=== PATIENT | female | born 2000 | race Caucasian/White ===

== ENCOUNTER 2023-07-07 22:21 | Emergency (ER) | payer OTHER, MEDICAID, SELFPAY ==
[2023-07-07 22:35] VITALS: BP 114/78; PULSE 109; RESP 20; TEMP 36.8; O2SAT 100; BMI 35.9
[2023-07-07 23:18] LABS: Coronavirus 19, PCR Not Detected (NotDetected); Influenza A, PCR Not Detected (NotDetected); Influenza B, PCR Not Detected (NotDetected)
[2023-07-07 23:33] LABS: Strep Scrn Group A (Rapid) Negative (Negative)
[2023-07-08 00:11] VITALS: BP 128/82; PULSE 72; RESP 18; TEMP 36.7; O2SAT 99
--- NOTE | 2023-07-08 19:42 | HMH.EDGENADL ---
Discharge Plan Disposition Patient Disposition: Home, Self-Care Condition: Good Prescriptions Prescriptions: New lidocaine HCl [Lidocaine Viscous] 2 % solution 1 applic mucous membrane DAILY PRN (Reason: pain) Qty: 100 0RF No Action cyclobenzaprine [Flexeril] 10 mg Tablet 10 mg PO HS PRN (Reason: Back Pain) pantoprazole [Protonix] 20 mg Tablet,Delayed Release (Dr/Ec) 20 mg PO DAILY trazodone 100 mg Tablet 100 mg PO BID aripiprazole [Abilify] 5 mg Tablet 5 mg PO DAILY tramadol 100 mg Tablet 100 mg PO BID PRN (Reason: Pain) Referrals Follow up/Referrals: Ayah Springer APRN [Primary Care Provider] - See instructions Activity Restrictions/Add. Instructions Additional Instructions/Restrictions: Please return to the emergency department if you experience any new or worsening symptoms. Clinical Impressions Clinical Impression: Acute viral pharyngitis Instructions Patient Instructions: DI for Viral Pharyngitis Discharge ED Provider: Ramirez Stewart Adult HPI General Chief complaint: PAIN Stated complaint: Sore throat, Time Seen by Provider: 07/07/23 22:24 Mode of Arrival: Ambulatory Source of Information: Patient Limitations: No Limitations Description of Symptoms (Recalled from ER Triage Doc. by RN): 32 year old female with compliants of sore throat and feeling like her tongue is swollen. Complaints started three days ago with no improvement. History of Present Illness HPI narrative: Patient presents for evaluation of sore throat, gradual in onset, starting 3 days ago, constant, stable in course, with no reported unilateral swelling or globus sensation or p.o. intolerance, no known sick contacts, has not had similar symptoms before, no pain elsewhere, no dental pain, no shortness of breath, no hoarseness Related Data Home Medications Medication Instructions Recorded Confirmed aripiprazole 5 mg tablet (Abilify) 5 mg PO DAILY Depression 07/07/23 07/07/23 cyclobenzaprine 10 mg tablet 10 mg PO HS PRN Back Pain 07/07/23 07/07/23 pantoprazole 20 mg tablet,delayed 20 mg PO DAILY Acid Reflux 07/07/23 07/07/23 release (Protonix) tramadol 100 mg tablet 100 mg PO BID PRN Pain 07/07/23 07/07/23 trazodone 100 mg tablet 100 mg PO BID Insomnia 07/07/23 07/07/23 Previous Rx's Medication Instructions Recorded lidocaine HCl 2 % mucosal solution 1 applic mucous membrane DAILY PRN 07/08/23 (Lidocaine Viscous) pain #100 mL Allergies Allergy/AdvReac Type Severity Reaction Status Date / Time glimepiride Allergy Mild Verified 07/07/23 22:52 [facility] Disclaimer: The information contained in this section may have been updated after the patient was seen, as this information can be updated by other users. Medical History (Updated 07/08/23 @ 00:06 by Ramirez Stewart MD) Anxiety DDD (degenerative disc disease) Insomnia Major depression Post traumatic stress disorder Scoliosis Surgical History (Updated 07/07/23 @ 22:45 by Lizett Perry RN) History of appendectomy History of section History of eye surgery Family History (Updated 07/07/23 @ 22:45 by Lizett Perry RN) Other No significant family history Social History (Updated 07/07/23 @ 22:47 by Lizett Perry RN) Smoking Status: Current every day smoker alcohol intake: never current occupational status: employed Travel in the last 8 weeks: None ROS Obtained: Yes Systems reviewed as appropriate & no additional complaints except as documented Physical Exam General General appearance: alert and in no apparent distress Head Head exam: atraumatic and normocephalic Eye Eye exam: Present normal appearance ENT ENT exam: Present other (Oropharyngeal erythema with no unilateral tonsillar swelling, no trismus, no stridor, no hoarseness) Neck Neck exam: Present normal inspection Chest Chest inspection: Present normal inspection and symmetric chest wall rise Respiratory Respir
== END 2023-07-08 00:13 | disposition home or self-care (01) ==
PROVIDERS: Emergency Provider Emergency Medicine; PCP Nurse Practitioner
DX: J02.9 Acute pharyngitis, unspecified (principal); F41.9 Anxiety disorder, unspecified; F32.9 Major depressive disorder, single episode, unspecified; F17.200 Nicotine dependence, unspecified, uncomplicated; F43.10 Post-traumatic stress disorder, unspecified
CPT/HCPCS: 87430; 87636; 99283

== ENCOUNTER 2023-09-18 12:31 | Emergency (ER) | payer OTHER, MEDICAID, SELFPAY ==
[2023-09-18 12:50] VITALS: BP 128/68; PULSE 76; RESP 18; TEMP 36.9; O2SAT 99; BMI 38.1
--- NOTE | 2023-09-18 13:02 | EXP.UTC ---
Discharge Plan Disposition Patient Disposition: Still a Patient Condition: Good Prescriptions Prescriptions: No Action cyclobenzaprine [Flexeril] 10 mg Tablet 10 mg PO HS PRN (Reason: Back Pain) trazodone 100 mg Tablet 100 mg PO BID aripiprazole [Abilify] 5 mg Tablet 5 mg PO DAILY lidocaine HCl [Lidocaine Viscous] 2 % solution 1 applic mucous membrane DAILY PRN (Reason: pain) Qty: 100 0RF hydroxyzine pamoate 50 mg capsule 50 mg PO TID Referrals Follow up/Referrals: Provider,Referral, MD [Primary Care Provider] - See instructions Activity Restrictions/Add. Instructions Additional Instructions/Restrictions: Please follow-up with your primary care doctor if your symptoms continue. Return to the emergency part with any significant worsening of your pain. No emergent medical condition identified today Clinical Impressions Clinical Impression: Abdominal pain, acute, right upper quadrant Instructions Patient Instructions: DI for Acute Abdominal Pain Discharge ED Provider: Tanesha Clay [facility] [place] HPI General Chief complaint: Abdominal Pain Stated complaint: back pain and stomach pain Mode of Arrival: Ambulatory Source of Information: Patient Limitations: No Limitations Time Seen by Provider: 09/18/23 13:02 Description of Symptoms (Recalled from Triage Doc. by RN): Pt stated that URQ pain that radiates to her right side. She describes the pain as a shooting pain . She rates her pain 7/10. She states that it has been going on for 2-3 days and has just gotten worse. HEENT Symptoms (Recalled from RN notes): Yes Resp Symptoms (Recalled from RN notes): No Skin Symptoms (Recalled from RN notes): No MS Symptoms (Recalled from RN notes): No Functional Status (Recalled from RN notes): n/a History of Present Illness Provider Complaint: Patient states that she has been having pain in her right upper quad that is shooting into her back and feels like it goes up her spine at times States that pain started about 2-3 days ago and has continued to get worse States that this morning she woke up and it was killing her rates pain 7-10 States that she has had her appendix removed but still has her gallbladder and her pain in her upper abdomen continues to get worse Related Data Home Medications Medication Instructions Recorded Confirmed aripiprazole 5 mg tablet (Abilify) 5 mg PO DAILY Depression 07/07/23 09/18/23 cyclobenzaprine 10 mg tablet 10 mg PO HS PRN Back Pain 07/07/23 09/18/23 trazodone 100 mg tablet 100 mg PO BID Insomnia 07/07/23 09/18/23 hydroxyzine pamoate 50 mg capsule 50 mg PO TID 09/18/23 09/18/23 Previous Rx's Medication Instructions Recorded lidocaine HCl 2 % mucosal solution 1 applic mucous membrane DAILY PRN 07/08/23 (Lidocaine Viscous) pain #100 mL Allergies Allergy/AdvReac Type Severity Reaction Status Date / Time glimepiride Allergy Mild Verified 09/18/23 13:02 pantoprazole [From Protonix] Allergy Verified 09/18/23 13:02 Worker's Comp Is this a Worker's Comp case?: No [facility] Disclaimer: The information contained in this section may have been updated after the patient was seen, as this information can be updated by other users. Medical History Anxiety DDD (degenerative disc disease) Insomnia Major depression Post traumatic stress disorder Scoliosis Surgical History History of appendectomy History of section History of eye surgery Family History Other No significant family history Social History Smoking Status: Never smoker alcohol intake: never current occupational status: employed Travel in the last 8 weeks: None ROS Obtained: Yes All systems reviewed & no additional complaints except as documented and Yes System
[2023-09-18 13:05] LABS: Apearance,Urine Cloudy (Clear); Bilirubin,Urine Negative (Negative); Blood, Urine Trace (Negative); Color,Urine Dark Yellow (Yellow); Glucose,Urine (UA) Negative (Negative); Ketones,Urine Negative (Negative); Protein,Urine Negative (Negative); UTC Leukocyte Esterase,Urine Negative (Negative); UTC Nitrate,Urine Negative (Negative); UTC Pregnancy Test, Urine Negative (Negative); Urobilinogen,Urine 0.2 EU/dl (0.2)
--- NOTE | 2023-09-18 13:16 | US_ITS ---
FINAL REPORT CLINICAL HISTORY: pain FINDINGS: RIGHT UPPER QUADRANT ULTRASOUND Sonographic images of the right upper quadrant were obtained. The pancreas is partially obscured.The liver has an unremarkable appearance.The gallbladder appears normal without evidence of gallstones.The common duct measures 3 mm. Limited images of the right kidney are normal. IMPRESSION: No acute process. Reviewed, Interpreted and Dictated by Lonny Mullen III, MD Transcribed by Margarita Dick Authenticated and [facility]
--- NOTE | 2023-09-18 13:20 | PC.NURSE ---
pt arrived to room from [facility]
[2023-09-18 13:23] VITALS: BP 123/90; PULSE 85; RESP 20; TEMP 36.8; O2SAT 99; BMI 37.8
--- NOTE | 2023-09-18 13:33 | HMH.EDGENADL ---
Discharge Plan Disposition Patient Disposition: Still a Patient Condition: Good Prescriptions Prescriptions: No Action cyclobenzaprine [Flexeril] 10 mg Tablet 10 mg PO HS PRN (Reason: Back Pain) trazodone 100 mg Tablet 100 mg PO BID aripiprazole [Abilify] 5 mg Tablet 5 mg PO DAILY lidocaine HCl [Lidocaine Viscous] 2 % solution 1 applic mucous membrane DAILY PRN (Reason: pain) Qty: 100 0RF hydroxyzine pamoate 50 mg capsule 50 mg PO TID Referrals Follow up/Referrals: Provider,Referral, MD [Primary Care Provider] - See instructions Activity Restrictions/Add. Instructions Additional Instructions/Restrictions: Please follow-up with your primary care doctor if your symptoms continue. Return to the emergency part with any significant worsening of your pain. No emergent medical condition identified today Clinical Impressions Clinical Impression: Abdominal pain, acute, right upper quadrant Instructions Patient Instructions: DI for Acute Abdominal Pain Discharge ED Provider: Tanesha Clay General Adult HPI <Tanesha Clay DO - Last Filed: 09/18/23 15:54> General Chief complaint: Abdominal Pain Stated complaint: back pain and stomach pain Time Seen by Provider: 09/18/23 13:02 Mode of Arrival: Ambulatory Source of Information: Patient Limitations: No Limitations Description of Symptoms (Recalled from ER Triage Doc. by RN): pt to ed from [facility] c/o right UQ pain. pt denies n/v. pt reports her symptoms have been persistent x2 days. History of Present Illness HPI narrative: This patient is a 22-year-old female with a history of chronic back pain and appendectomy presenting to the emergency department with concern for right upper quadrant abdominal pain x 2 days. She states that it radiates to her back. She also complains of nausea, but no vomiting. She denies any fevers, chills, changes in bowel movements, dysuria, polyuria, or other concerns. She is evaluated in [facility], who called over here to transfer the patient over here. They note that the patient has an exam that is concerning for cholecystitis. Patient does still have her gallbladder. No other concerns noted at this time. Related Data Home Medications Medication Instructions Recorded Confirmed aripiprazole 5 mg tablet (Abilify) 5 mg PO DAILY Depression 07/07/23 09/18/23 cyclobenzaprine 10 mg tablet 10 mg PO HS PRN Back Pain 07/07/23 09/18/23 trazodone 100 mg tablet 100 mg PO BID Insomnia 07/07/23 09/18/23 hydroxyzine pamoate 50 mg capsule 50 mg PO TID 09/18/23 09/18/23 Previous Rx's Medication Instructions Recorded lidocaine HCl 2 % mucosal solution 1 applic mucous membrane DAILY PRN 07/08/23 (Lidocaine Viscous) pain #100 mL Allergies Allergy/AdvReac Type Severity Reaction Status Date / Time glimepiride Allergy Mild Verified 09/18/23 13:02 pantoprazole [From Protonix] Allergy Verified 09/18/23 13:02 PFSH <Tanesha Clay DO - Last Filed: 09/18/23 15:54> [facility] Disclaimer: The information contained in this section may have been updated after the patient was seen, as this information can be updated by other users. Medical History Anxiety DDD (degenerative disc disease) Insomnia Major depression Post traumatic stress disorder Scoliosis Surgical History History of appendectomy History of section History of eye surgery Family History Other No significant family history Social History Smoking Status: Never smoker alcohol intake: never current occupational status: employed Travel in the last 8 weeks: None <Tanesha Clay DO - Last Filed: 09/18/23 15:54> ROS Obtained: Yes All systems reviewed & no additional complaints except as documented Physical Exam <Tanesha Clay DO
--- NOTE | 2023-09-18 13:44 | PC.NURSE ---
pt received a warm blanket call light at bs
--- NOTE | 2023-09-18 14:07 | PC.NURSE ---
PT gone to RAD via wheelchair for u/s
[2023-09-18 14:12] LABS: Basophils % 0.4 % (0.1-2.0); Eosinophils # 0.1 K/mm3 (0.0-0.4); Eosinophils % 0.6 % (0.1-12.0); Hematocrit 41.8 % (37.0-47.0); Hemoglobin 14.1 g/dL (12.2-16.2); Lymphocytes # 3.2 K/mm3 (0.7-4.5); Lymphocytes % 36.4 % (10-50); Mean Corpuscular HGB Conc 33.7 g/dL (31.8-35.4); Mean Corpuscular Hemoglobin 29.3 pg (27.0-31.2); Mean Platelet Volume 8.2 fl (7.4-10.4); Monocytes # 0.6 K/mm3 (0.1-1.0); Monocytes % 6.9 % (1.7-9.3); Neutrophils # 4.9 K/mm3 (1.8-7.8); Neutrophils % 55.6 % (37.0-80.0); Platelet Count 253 K/mm3 (142-424); Red Cell Distribution Width 13.4 % (11.5-17.5); White Blood Count 8.8 K/mm3 (4.8-10.8)
[2023-09-18 14:14] LABS: Chloride 106 mmol/L (98-107); Sodium 137 mmol/L (136-145)
[2023-09-18 14:16] LABS: Alanine Aminotransferase 21 U/L (12-78); Alkaline Phosphatase 61 U/L (38-126); Aspartate Amino Transferase 26 U/L (14-36); Bilirubin,Total 0.5 mg/dl (0.2-1.3); Blood Urea Nitrogen 4 mg/dl (7-17); Creatinine Clearance Estimated 177 mL/min (50-200); Estimated Glomerular Filt Rate 103 ml/min (>60); GFR (African American) 124 ML/MIN (>60)
[2023-09-18 14:17] LABS: Albumin Level 3.9 g/dl (3.5-5.0); Albumin/Globulin Ratio 1.5 (1.1-1.8); Calcium 8.6 mg/dl (8.4-10.2); Carbon Dioxide 28 mmol/L (22.0-30.0); Globulin 2.6 g/dL (1.3-3.2); Glucose 96 mg/dl (74-100); Lipase 17 U/L (23-300); Total Protein,Serum 6.5 g/dl (6.3-8.2)
--- NOTE | 2023-09-18 14:39 | PC.NURSE ---
PT returned from u/s
--- NOTE | 2023-09-18 17:13 | PC.NURSE ---
Dr. Pena at BS to update pt on result and POC
[2023-09-18 17:20] VITALS: BP 121/88; PULSE 79; RESP 20; TEMP 36.8; O2SAT 99
[2023-09-18 17:23] VITALS: BP 121/88; PULSE 79; RESP 20; TEMP 36.8
== END 2023-09-18 17:24 | disposition still patient (30) ==
LOC: UTC 12:37 → ER 13:09
PROVIDERS: Nurse Practitioner; Emergency Provider Emergency Medicine
DX: R10.11 Right upper quadrant pain (principal); R11.0 Nausea
CPT/HCPCS: 76705; 80053; 81003; 81025; 83690; 85025; 87086; 96361; 96374; 96375; 99285; J0131; J2405

== ENCOUNTER 2023-12-21 09:07 | Emergency (ER) | payer MEDICAID, SELFPAY ==
[2023-12-21 09:08] VITALS: BP 125/79; PULSE 60; RESP 18; TEMP 36.7; O2SAT 97; BMI 38.0
--- NOTE | 2023-12-21 09:24 | ED_ITS ---
Discharge Plan Disposition Patient Disposition: Home, Self-Care Condition: Good Prescriptions Prescriptions: New [id number] [Bromfed DM] 2-30-10 mg/5 mL Syrup 5 ml PO Q6H PRN (Reason: Cough) Qty: 240 0RF ondansetron 4 mg Tablet,Disintegrating 4 mg PO Q8H PRN (Reason: Nausea) Qty: 12 0RF oseltamivir [Tamiflu] 75 mg capsule 75 mg PO BID Qty: 10 0RF No Action cyclobenzaprine [Flexeril] 10 mg Tablet 10 mg PO HS PRN (Reason: Back Pain) aripiprazole [Abilify] 5 mg Tablet 5 mg PO DAILY trazodone 100 mg tablet 100 mg PO DAILY hydroxyzine pamoate 50 mg capsule 100 mg PO TID Referrals Follow up/Referrals: Ayah Springer APRN [Primary Care Provider] - See instructions Activity Restrictions/Add. Instructions Additional Instructions/Restrictions: Drink plenty of fluids. Take tylenol or ibuprofen for pain or fever. Take the medications as directed. Follow up with your regular doctor. GO TO THE ER FOR ANY WORSENING SYMPTOMS Clinical Impressions Clinical Impression: Influenza A Stand Alone Forms Stand Alone Forms: Work/School Release Instructions Patient Instructions: Influenza, DI for Influenza -- Adult, Oseltamivir Discharge ED Provider: Michelet Garcia [facility] General Stated complaint: runny nose, cough, vomitting, sore throat Time Seen by Provider: 12/21/23 09:24 History of Present Illness Provider Complaint: She states that for the past 2 days she has had fever/chills/body aches, n/v/d, and malaise. Her daughter currently has influenza A at her home. Related Data Home Medications Medication Instructions Recorded Confirmed aripiprazole 5 mg tablet (Abilify) 5 mg PO DAILY Depression 07/07/23 12/20/23 cyclobenzaprine 10 mg tablet 10 mg PO HS PRN Back Pain 07/07/23 12/20/23 hydroxyzine pamoate 50 mg capsule 100 mg PO TID 12/20/23 12/20/23 trazodone 100 mg tablet 100 mg PO DAILY Insomnia 12/20/23 12/20/23 Previous Rx's Medication Instructions Recorded [id number]-[id number]-[id number] 5 ml PO Q6H PRN Cough #240 mL 12/21/23 2 mg-30 mg-10 mg/5 mL oral syrup (Bromfed DM) ondansetron 4 mg disintegrating 4 mg PO Q8H PRN Nausea #12 tabs 12/21/23 tablet oseltamivir 75 mg capsule (Tamiflu) 75 mg PO BID #10 caps 12/21/23 Allergies Allergy/AdvReac Type Severity Reaction Status Date / Time glimepiride Allergy Mild Verified 12/21/23 09:49 pantoprazole [From Protonix] Allergy Verified 12/21/23 09:49 [facility] Disclaimer: The information contained in this section may have been updated after the patient was seen, as this information can be updated by other users. Medical History (Updated 12/21/23 @ 10:31 by Michelet Garcia APRN) History of pre-eclampsia History of gestational diabetes Anxiety Insomnia Scoliosis DDD (degenerative disc disease) Post traumatic stress disorder Major depression Surgical History History of eye surgery History of appendectomy History of section Family History Other Anemia Asthma Cancer Diabetes FHx: mental illness Hyperlipidemia Hypertension Thyroid disorder Social History Smoking Status: Current every day smoker alcohol intake: never current occupational status: employed Travel in the last 8 weeks: None ROS Obtained: Yes All systems reviewed & no additional complaints except as documented Constitutional Constitutional: Reports chills and Reports fever(s) Eyes Eyes: Denies eye discharge ENT Ears, Nose, Mouth, and Throat: Reports as per HPI Cardiovascular Cardiovascular: Denies chest pain Respiratory Respiratory: Denies chest congestion and Reports cough Gastrointestinal Gastrointestingal: Reports nausea; Denies abdominal pain, constipation, cramping, diarrhea or vomiting Musculoskeletal Musculoskeletal: Denies arthralgias Integumentary/Breasts Skin/Breast: Denies rash Neurologic Neurologic: Denies paresthesias Physical Exam General General appearance: alert and in no apparent distress Eye Eye exam: Present normal appearance, PERRL and EOMI ENT ENT exam: Present mucous membranes moist and normal external ear exam Expanded ENT Exam External ear exam: Present normal external inspection TM/Canal exam: Bilateral TM: erythema and bulging Nose exam: Absent sinus tenderness Nasal speculum exam: Bilateral: normal Mouth exam: Present normal external inspection; Absent drooling Teeth exam: Present normal inspection Throat exam: Present tonsillar erythema and tonsillomegaly Neck Neck exam: Present normal inspection, full ROM and trachea midline; Absent tenderness, lymphadenopathy or thyromegaly Chest Chest inspection: Present normal inspection and symmetric chest wall rise; Absent tenderness or rash Respiratory Respiratory exam: Present normal lung sounds bilaterally; Absent respiratory distress, wheezes, stridor or accessory muscle use Cardiovascular Cardiovascular exam: Present regular rate, normal rhythm and normal heart sounds Abdominal Exam Abdominal exam: Present soft; Absent distention, tenderness, guarding, rebound or rigidity Extremities Exam Extremities exam: Present normal inspection, full ROM and normal capillary refill; Absent tenderness or calf tenderness Back Exam Back exam: Present normal inspection and full ROM; Absent tenderness Neurological Exam Neurological exam: Present alert and oriented X3 Psychiatric Psychiatric exam: Present normal affect and normal mood Skin Skin exam: Present warm, dry, intact and normal color Lymphatic Lymphatic Findings: no adenopathy Medical Decision Making Medical Records Medical records reviewed: No I reviewed the patient's medical records. Eric Inquiry Pt receiving controlled substance: No Lab Data Lab results reviewed: Yes I reviewed the patient's lab results. Orders (Tests/Meds): ORDERS Category Date Time Status Rapid PCR Covid and Flu A/B Stat Lab 12/21/23 09:19 Ordered
[2023-12-21 09:31] LABS: Coronavirus 19, PCR Not Detected (NotDetected); Influenza B, PCR Not Detected (NotDetected)
[2023-12-21 09:49] VITALS: BP 125/79; PULSE 60; RESP 18; TEMP 36.7; O2SAT 97
[2023-12-21 10:11] LABS: Influenza A, PCR Detected (NotDetected)
== END 2023-12-21 09:49 | disposition home or self-care (01) ==
PROVIDERS: Emergency Provider Nurse Practitioner Family; PCP Nurse Practitioner
DX: J10.2 Influenza due to other identified influenza virus with gastrointestinal manifestations (principal); R11.2 Nausea with vomiting, unspecified; R50.9 Fever, unspecified; R19.7 Diarrhea, unspecified; F17.210 Nicotine dependence, cigarettes, uncomplicated
CPT/HCPCS: 87636; 99204; 99212; G0463

== ENCOUNTER 2023-12-26 12:03 | Outpatient (CLI) | payer MEDICAID, SELFPAY ==
[2023-12-26 13:26] LABS: Thyroid Stimulating Hormone 1.78 uIU/mL (0.465-4.68)
[2023-12-31 09:48] LABS: Anti Mullerian Hormone (AMH) 7.87
== END 2023-12-26 23:59 ==
LOC: LAB 12:03
PROVIDERS: Visit Provider Obstetrics & Gynecology
DX: N96 Recurrent pregnancy loss (principal)
CPT/HCPCS: 36415; 82397; 84443

== ENCOUNTER 2024-03-05 07:44 | Emergency (ER) | payer MEDICAID, SELFPAY ==
[2024-03-05 07:44] VITALS: BP 110/75; PULSE 78; RESP 16; TEMP 36.7; O2SAT 99; BMI 34.3; BMI 34.7
--- NOTE | 2024-03-05 07:45 | ECG_ITS ---
APPROVED REPORT Exam: Resting ECG HR:69 bpm ECG Measurements Heart Rate 69 AXES MS 160 P 48 QRSd 98 QRS 84 QT 409 T 68 QTc 429 Conclusion SINUS RHYTHM WITH SINUS ARRHYTHMIA NORMAL ECG UNCONFIRMED REPORT Electronically signed by : Michelet Pena, 03/05/2024 15:00:27
--- NOTE | 2024-03-05 07:45 | PC.NURSE ---
Dr. Pena at bedside
--- NOTE | 2024-03-05 07:47 | XR_ITS ---
FINAL REPORT TECHNIQUE: Chest PA & Lateral CLINICAL HISTORY: chest pain COMPARISON: None FINDINGS: 2 views of the chest were performed. The heart size is normal. The mediastinum is within normal limits. There is no acute cardiopulmonary process. There are no pleural effusions. There is no pneumothorax. The bony thorax appears intact. IMPRESSION: No acute cardiopulmonary process. Reviewed, Interpreted and Dictated by Silvino Blandon MD Transcribed by Rebecca Mendoza Authenticated and [facility]
[2024-03-05 08:00] VITALS: BP 103/61; PULSE 71; O2SAT 97
[2024-03-05 08:02] LABS: Basophils # 0.1 K/mm3 (0-0.2); Basophils % 1.3 % (0.1-2.0); Eosinophils # 0.2 K/mm3 (0.0-0.4); Eosinophils % 1.9 % (0.1-12.0); Hematocrit 47.2 % (37.0-47.0); Hemoglobin 15.7 g/dL (12.2-16.2); Lymphocytes # 4.4 K/mm3 (0.7-4.5); Lymphocytes % 43.9 % (10-50); Mean Corpuscular HGB Conc 33.2 g/dL (31.8-35.4); Mean Corpuscular Hemoglobin 28.5 pg (27.0-31.2); Mean Corpuscular Volume 85.7 fl (81-99); Mean Platelet Volume 8.3 fl (7.4-10.4); Monocytes # 0.5 K/mm3 (0.1-1.0); Monocytes % 4.9 % (1.7-9.3); Neutrophils # 4.8 K/mm3 (1.8-7.8); Platelet Count 284 K/mm3 (142-424); Red Cell Distribution Width 14.3 % (11.5-17.5); White Blood Count 9.9 K/mm3 (4.8-10.8)
--- NOTE | 2024-03-05 08:03 | HMH.EDGENADL ---
Discharge Plan Disposition Patient Disposition: Home, Self-Care Prescriptions Prescriptions: No Action imiquimod 3.75 % cream in metered-dose pump 1 pump topical HS Qty: 7.5 6RF cyclobenzaprine [Flexeril] 10 mg Tablet 10 mg PO HS PRN (Reason: Back Pain) aripiprazole [Abilify] 5 mg Tablet 5 mg PO DAILY hydroxyzine pamoate 50 mg capsule 100 mg PO TID Referrals Follow up/Referrals: Provider,Referral, MD [Referring] - See instructions Activity Restrictions/Add. Instructions Additional Instructions/Restrictions: I recommend that you follow-up with your neurologist outpatient to be on more suppressive medications for your migraines. There is no evidence of any emergent medical condition today from a neurologic or cardiovascular standpoint. Please return with any significant worsening of her symptoms Clinical Impressions Clinical Impression: Headache, Atypical chest pain Discharge ED Provider: Qian Pena General Adult HPI General Chief complaint: Chest Pain Stated complaint: Chest Pain, Migraine Time Seen by Provider: 03/05/24 07:46 Mode of Arrival: Ambulatory Source of Information: Patient Limitations: No Limitations Description of Symptoms (Recalled from ER Triage Doc. by RN): Patient reports chest pain that started this morning after having a migraine. States she took excedrin for her migraine. History of Present Illness HPI narrative: Patient is a 23-year-old female presenting today with headache and chest pain. She states that she has a history of chronic migraine she has been dealing with for years she actually has seen a neurologist in the past was started on a blood pressure medication but had side effects from it and has not been on any suppressive medications for her migraines since that time and she has moved and has not followed up. She has headaches 3-4 times a week states her headache today is very similar however she had a little chest discomfort associated with the look of the right anterior lateral side of her chest. She is not having dyspnea diaphoresis exertional symptoms etc. No fevers chills or other complaints. No neurologic complaints including changes in vision neck stiffness numbness weakness tingling etc. Related Data Home Medications Medication Instructions Recorded Confirmed aripiprazole 5 mg tablet (Abilify) 5 mg PO DAILY Depression 07/07/23 03/04/24 cyclobenzaprine 10 mg tablet 10 mg PO HS PRN Back Pain 07/07/23 03/04/24 hydroxyzine pamoate 50 mg capsule 100 mg PO TID 12/20/23 03/04/24 Previous Rx's Medication Instructions Recorded imiquimod 3.75 % topical cream in 1 pump topical HS #7.5 grams 03/04/24 a pump Allergies Allergy/AdvReac Type Severity Reaction Status Date / Time glimepiride Allergy Mild Verified 03/04/24 15:20 pantoprazole [From Protonix] Allergy Verified 03/04/24 15:20 PFS PFS Disclaimer: The information contained in this section may have been updated after the patient was seen, as this information can be updated by other users. Medical History Abnormal Pap smear of cervix History of pre-eclampsia History of gestational diabetes Anxiety Insomnia Scoliosis DDD (degenerative disc disease) Post traumatic stress disorder Major depression Surgical History History of eye surgery History of appendectomy History of section Family History Other Anemia Asthma Cancer Diabetes FHx: mental illness Hyperlipidemia Hypertension Thyroid disorder Social History Smoking Status: Current every day smoker alcohol intake: never current occupational status: employed Travel in the last 8 weeks: None ROS Obtained: Yes All systems reviewed & no additional complaints except as documented Physical Exam General General appearance: alert and in no apparent distress Respiratory Respiratory exam: Present normal lung sounds bilaterally Cardiovascular Cardiovascular exam: Present regular rate; Absent normal rhythm Abdominal Exam Abdominal exam: Present soft; Absent distention or tenderness Neurological Exam Neurological exam: Present alert, oriented X3 and CN II-XII intact; Absent motor sensory deficit Medical Decision Making Eric Inquiry Pt receiving controlled substance: No Vital Signs: 03/05/24 07:44 03/05/24 08:00 03/05/24 08:30 Temperature 98.0 F Temperature Source Oral Pulse Rate 71 64 Pulse Rate [Radial] 78 Respiratory Rate 16 Blood Pressure 103/61 L 105/72 L Blood Pressure [Right Arm] 110/75 Blood Pressure Mean [Right Arm] 86 Blood Pressure Source [Right Arm] Automatic Cuff Blood Pressure Position [Right Arm] Sitting 02 Sat by Pulse Oximetry 99 97 97 Oxygen Delivery Method Room Air 03/05/24 09:00 Temperature Temperature Source Pulse Rate 61 Pulse Rate [Radial] Respiratory Rate Blood Pressure 115/77 Blood Pressure [Right Arm] Blood Pressure Mean [Right Arm] Blood Pressure Source [Right Arm] Blood Pressure Position [Right Arm] 02 Sat by Pulse Oximetry 97 Oxygen Delivery Method Lab Data Lab results reviewed: Yes I reviewed the patient's lab results. Lab Results 03/05/24 07:45: Sodium 138, Potassium 3.7, Chloride 100, Carbon Dioxide 28, Anion Gap 13.7, BUN 7, Creatinine 0.80, Estimated Creat Clear 155, Estimated GFR 87, Est GFR ( Amer) 106, Glucose 143 H, Calcium 9.8, Total Bilirubin 0.5, AST 36, ALT 45, Alkaline Phosphatase 70, Troponin I < 0.01, Total Protein 7.5, Albumin 4.4, Globulin 3.1, Albumin/Globulin Ratio 1.4, Serum HCG, Qual Negative 03/05/24 07:46: WBC 9.9, RBC 5.50 H, Hgb 15.7, Hct 47.2 H, MCV 85.7, MCH 28.5, MCHC 33.2, RDW 14.3, Plt Count 284, MPV 8.3, Neut % (Auto) 48.0, Lymph % (Auto) 43.9, [place] % (Auto) 4.9, Eos % (Auto) 1.9, Baso % (Auto) 1.3, Neut # (Auto) 4.8, Lymph # (Auto) 4.4, [place] # (Auto) 0.5, Eos # (Auto) 0.2, Baso # (Auto) 0.1 03/05/24 07:46 03/05/24 07:45 Orders (Tests/Meds): ED MEDICATIONS Discontinued Medications Generic Name Dose Route Start Last Admin Trade Name Freq PRN Reason Stop Dose Admin Dexamethasone Sodium Phosphate 10 mg 03/05/24 07:51 03/05/24 08:16 Dexamethasone 4mg/Ml 1ml Vial IV 03/05/24 07:52 10 mg ONCE ONE Administration Diphenhydramine HCl 25 mg 03/05/24 07:51 03/05/24 08:16 Diphenhydramine 50mg/Ml Vial IV 03/05/24 07:52 25 mg ONCE ONE Administration Lactated Ringer's 1,000 mls @ 999 mls/hr 03/05/24 08:00 03/05/24 08:16 Lactated Ringer's 1000 Ml Bag IV 03/05/24 09:00 999 mls/hr .Q1H1M USMAN Administration Ketorolac Tromethamine 15 mg 03/05/24 07:51 03/05/24 08:16 Ketorolac 30mg/Ml Vial IV 03/05/24 07:52 15 mg ONCE ONE Administration Prochlorperazine Edisylate 10 mg 03/05/24 07:51 03/05/24 08:16 Prochlorperazine 10mg/2ml Vial IV 03/05/24 07:52 10 mg ONCE ONE Administration ORDERS Category Date Time Status XR chest 2V Stat Exams 03/05/24 07:47 Taken Complete Blood Count Auto Diff Stat Lab 03/05/24 07:46 Completed Comprehensive Metabolic Panel Stat Lab 03/05/24 07:45 Completed HCG Qualitative, Serum Stat Lab 03/05/24 07:45 Completed Troponin I Q3H Lab 03/05/24 11:00 Ordered Troponin I Q3H Lab 03/05/24 14:00 Ordered Troponin I Stat Lab 03/05/24 07:45 Completed ECG Data Tracing #1: I reviewed this ECG and interpreted as documented below: Ventricular rate of 69 no acute ischemic changes normal axis no significant conduction abnormalities Medical Decision Narrative: Patient is a very well-appearing 23-year-old female with a normal neurologic and cardiovascular exam presents today with a headache and some atypical chest pain. I have very low suspicion this is acute coronary syndrome she is PERC negative this is not consistent with a pulmonary embolism. I will give her a migraine cocktail single troponin and check an EKG and chest x-ray. EKG was nonischemic. I will reassess after her medications. Chest x-ray performed which I first interpreted shows no acute cardiopulmonary emergency. Reassessment 9:30 AM patient feeling much better serial neurologic exams are normal. All of her symptoms have resolved troponin negative at this point I am comfortable with her following up outpatient with her neurologist for further management of her chronic migraines. She was discharged in improved and stable condition. Critical Care Critical Care Time Critical Care Time: No
[2024-03-05] MEDS: PROCHLORPERAZINE 10MG/2ML VIAL 10 MG IV (08:16)
[2024-03-05] MEDS: diphenhydrAMINE 50MG/ML VIAL 25 MG IV (08:16)
[2024-03-05] MEDS: DEXAMETHASONE 4MG/ML 1ML VIAL 10 MG IV (08:16)
[2024-03-05] MEDS: KETOROLAC 30MG/ML VIAL 15 MG IV (08:16)
[2024-03-05] MEDS: LACTATED RINGERS 1000ML 1,000 ML 999 ML IV (08:16)
[2024-03-05 08:22] LABS: Alanine Aminotransferase 45 U/L (12-78); Albumin Level 4.4 g/dl (3.5-5.0); Albumin/Globulin Ratio 1.4 (1.1-1.8); Alkaline Phosphatase 70 U/L (38-126); Anion Gap 13.7 mEq/L (5-15); Aspartate Amino Transferase 36 U/L (14-36); Bilirubin,Total 0.5 mg/dl (0.2-1.3); Blood Urea Nitrogen 7 mg/dl (7-17); Calcium 9.8 mg/dl (8.4-10.2); Carbon Dioxide 28 mmol/L (22.0-30.0); Chloride 100 mmol/L (98-107); Creatinine Clearance Estimated 155 mL/min (50-200); Estimated Glomerular Filt Rate 87 ml/min (>60); GFR (African American) 106 ML/MIN (>60); Globulin 3.1 g/dL (1.3-3.2); Glucose 143 mg/dl (74-100); Potassium 3.7 mmoL/L (3.5-5.1); Sodium 138 mmol/L (136-145); Total Protein,Serum 7.5 g/dl (6.3-8.2)
[2024-03-05 08:30] VITALS: BP 105/72; PULSE 64; O2SAT 97
[2024-03-05 08:35] LABS: Troponin I < 0.01 ng/ml (0.00-0.034)
[2024-03-05 08:54] LABS: HCG Qualitative, Serum Negative (Negative)
[2024-03-05 09:00] VITALS: BP 115/77; PULSE 61; O2SAT 97
--- NOTE | 2024-03-05 09:09 | PC.NURSE ---
patient gone to XRay at this trime.
--- NOTE | 2024-03-05 09:21 | PC.NURSE ---
patient back in room at this time.
[2024-03-05 09:31] VITALS: BP 115/77; PULSE 60; RESP 18; TEMP 36.6; O2SAT 97
== END 2024-03-05 09:32 | disposition home or self-care (01) ==
PROVIDERS: Emergency Provider Student in an Organized Health Care Education/Training Program; PCP Nurse Practitioner
DX: R07.89 Other chest pain (principal); G44.89 Other headache syndrome; F17.210 Nicotine dependence, cigarettes, uncomplicated
CPT/HCPCS: 71046; 80053; 84484; 84703; 85025; 93005; 96361; 96374; 96375; 99284

== ENCOUNTER 2024-04-11 06:05 | Day surgery (SDC) | payer MEDICAID, SELFPAY ==
[2024-04-10 09:43] VITALS: BMI 37.1
[2024-04-11] VITALS (11 sets, daily range): BP systolic 106–122; BP diastolic 57–74; PULSE 61–88; RESP 15–18; TEMP 36.2–36.7; O2SAT 96–100
[2024-04-11] MEDS: LACTATED RINGERS 1000ML 1,000 ML 25 ML IV (06:41)
--- NOTE | 2024-04-11 07:15 | P.PNANES_ITS ---
[facility] Disclaimer: The information contained in this section may have been updated after the patient was seen, as this information can be updated by other users. Medical History Abnormal Pap smear of cervix History of pre-eclampsia History of gestational diabetes Anxiety Insomnia Scoliosis DDD (degenerative disc disease) Post traumatic stress disorder Major depression Surgical History History of eye surgery History of appendectomy History of section Family History Other Anemia Asthma Cancer Diabetes FHx: mental illness Hyperlipidemia Hypertension Thyroid disorder Social History (Updated 04/11/24 @ 06:34 by Arpita Clark RN) Smoking Status: Current every day smoker alcohol intake: never substance use type: denies use current occupational status: employed Travel in the last 8 weeks: None [facility] Anesthesia Checklist Patient Identification Patient Identification: Arm Band, Family and Verbal (Name & ) Structural Data Admitted From: Home Planned Operative Procedure/s: Excision of vaginal condyloma Consent for Planned Operative Procedure(s) Verified: Yes Verified Documents: Surgical Consent and History and Physical NPO Status Verified Time NPO: 23:00 Chart Verification Results Verified: CBC, BMP, ECG, Chest Xray and HCG Additional verifications Patient : No Anesthesia Reactions: No Hx Blood Transfusions: No Blood Transfusion Reaction: No Cardiovascular Assessment Heart Sounds: S1 & S2 Pulse Rhythm: Irregular Peripheral Edema: No Airway Assessment Mallampati Score:: Class II C-Spine Mobility Assessed: Yes (FROM) TMJ Mobility Assessed: Yes Dentition: Good Dentition (Nothing loose per pt.) Neurological Assessment Level of Consciousness: Awake, Alert, Appropriate and Follows Commands Hx Seizures: No Numbness or tingling in extremities: No Anesthesia Plan Anesthesia Risk discussed: Yes Anesthesia Plan: Verified ASA Class: II Anesthesia Type: General
[2024-04-11] MEDS: SILVER SULFADIAZINE TP (07:59)
[2024-04-11] MEDS: LIDOCAINE 5% OINTMENT 35GM TUBE TP (08:00)
[2024-04-11] MEDS: LIDOCAINE 1% W/EPI 1:100,000 20ML VIAL 20 ML (08:01)
--- NOTE | 2024-04-11 08:27 | EXP.ANES.I ---
[facility] [place] Anesthesia Record Part I Anesthesia Record I Intake, IV Amount: 600 Hydration: Adequate Estimated blood loss (mL): 10 Urine output (mL): 100 Blood Products used (#): none Blood Pressure: 109/58 SaO2: 97 Pulse Rate: 79 Airway Patency: Patent Respiratory Rate: 16 Temperature: 97.2 F Patient is:: Awake (Talking) and Stable
--- NOTE | 2024-04-11 08:27 | EXP.OP.NOTE ---
Date of procedure: 04/11/24 Pre-op Diagnosis:: 1. Extensive genital condylomas 2. Failed medical management Post-op Diagnosis:: 1. Extensive genital condylomas 2. Failed medical management Procedure performed:: Electrocautery removal of genital condylomas Surgeon:: Leelee Cobos DO Audio Installer(s):: Mindi JUAREZ MANAGER CASE MANAGEMENT:: Jaqui Robertson Anesthesia: GETA Estimated blood loss (mL): 5 Operative findings:: There were extensive genital condylomas from just above the clitoris extending beyond the rectum. There is approximately a 4 x 2 cm thick cluster of condyloma at the perineum extending from the vaginal introitus down to the rectum. There were several other scattered individual condylomas on the labia, perirectal area, periclitoral area. Operative note:: Danna Gandhi is a 23-year-old female who presented to the office complaining of condylomas that she had started to notice several months ago. She has previously tried imiquimod but states that it was too painful and she did not want to wait an additional 8 weeks for treatment resolution especially since these were growing so rapidly. Operative findings are noted above. The patient was extensively counseled on the risk of the surgery to include significant postoperative pain, the possibility of pigmentation changes, scarring, and recurrence. The OR staff was properly equipped with HPV prophylaxis masks. The patient was positioned in the dorsal lithotomy position using yellowfin stirrups. She was prepped and draped in the normal sterile fashion. Anesthesia was obtained. Bovie electrocautery with a loop excisional Bovie was used to remove all genital condylomas. These were collected and sent to pathology for further evaluation. The area was thoroughly rinsed and carefully evaluated for any additional condylomas none were noted. The original Bovie tip was used to ensure hemostasis. No bleeding was noted. A mixture of lidocaine and Silvadene cream was applied to the area. The patient was taken to recovery in stable condition. She will be sent home with the Silvadene cream and lidocaine cream as well as p.o. pain medication. Sitz bath's and NATHALIE care have been extensively reviewed with the patient. This concluded the procedure. Condition: stable Disposition: same day Specimens:: Genital condylomas Complications:: None
[2024-04-11] MEDS: ONDANSETRON 4MG/2ML VIAL 4 MG IV (08:34)
--- NOTE | 2024-04-11 08:44 | SUR.PHASEI ---
Pt given ice chips to get ride of nasty taste in mouth . Pt is tolerating well, she states her nausea has gone away .
--- NOTE | 2024-04-11 09:00 | SUR.PHASEI ---
Detailed bedside report given to Angi Rios RN. All questions answered. Pt is doing well, continuing to eat on ice chips. VSS. No more c/o nausea. No pain reported. Bed placed in lowest position and wheels locked.
--- NOTE | 2024-04-11 13:04 | EXP.ANES.II ---
[facility] Anesthesia Record Part II Anesthesia Record Part II Discharge Time: 08:50 Destination: Surgical Day Care (OP Surgery) PACU nurse assessment reviewed?: Yes Patient Condition:: Good Anesthesia Complications:: None Swallowing reflex intact?: Yes Airway Patency: Patent Cyanosis?: No Blood Pressure: 106/63 SaO2: 100 Respiratory Rate: 16 Pulse Rate: 70 Temperature: 98.1 F Mental Status: Alert & Oriented Pain level:: 0 Nausea and/or vomitting:: None Intake, IV Amount: 600 Hydration: Adequate
== END 2024-04-11 09:29 | disposition home or self-care (01) ==
PROVIDERS: Visit Provider Obstetrics & Gynecology
PROC: (CPT 56515; principal; 2024-04-11 07:30)
DX: A63.0 Anogenital (venereal) warts (principal)
CPT/HCPCS: 56515; J1100; J1885; J2250; J2405; J3010; J7120

== ENCOUNTER 2024-04-21 00:32 | Emergency (ER) | payer MEDICAID, SELFPAY ==
[2024-04-21 00:35] VITALS: BP 136/99; PULSE 79; RESP 18; TEMP 36.6; O2SAT 98; BMI 37.8
[2024-04-21] MEDS: LACTATED RINGERS 1000ML 500 ML IV (01:00)
[2024-04-21] MEDS: ACETAMINOPHEN 1,000MG/100ML VIAL 1000 MG IV (01:00)
[2024-04-21 01:15] LABS: Basophils # 0.1 K/mm3 (0-0.2); Basophils % 1.6 % (0.1-2.0); Eosinophils # 0.1 K/mm3 (0.0-0.4); Eosinophils % 1.1 % (0.1-12.0); Hematocrit 40.7 % (37.0-47.0); Hemoglobin 13.8 g/dL (12.2-16.2); Lymphocytes # 2.9 K/mm3 (0.7-4.5); Mean Corpuscular Hemoglobin 28.9 pg (27.0-31.2); Mean Corpuscular Volume 84.9 fl (81-99); Monocytes # 0.6 K/mm3 (0.1-1.0); Monocytes % 9.6 % (1.7-9.3); Neutrophils # 2.4 K/mm3 (1.8-7.8); Neutrophils % 39.6 % (37.0-80.0); Platelet Count 256 K/mm3 (142-424); Red Blood Count 4.79 M/mm3 (4.20-5.40); Red Cell Distribution Width 14.2 % (11.5-17.5); White Blood Count 6.1 K/mm3 (4.8-10.8)
[2024-04-21 01:22] LABS: INR 0.91 (0.9-1.1); Prothrombin Time 10.3 seconds (10.1-12.5)
[2024-04-21 01:25] LABS: Chloride 107 mmol/L (98-107); Sodium 138 mmol/L (136-145)
[2024-04-21 01:26] LABS: Potassium 3.5 mmoL/L (3.5-5.1)
[2024-04-21] MEDS: diphenhydrAMINE 50MG/ML VIAL 25 MG IV (01:26)
[2024-04-21] MEDS: KETOROLAC 30MG/ML VIAL 15 MG IV (01:26)
--- NOTE | 2024-04-21 01:26 | HMH.EDGENADL ---
Discharge Plan Disposition Patient Disposition: Home, Self-Care Condition: Good Prescriptions Prescriptions: New sulfamethoxazole-trimethoprim 800-160 mg tablet 1 tab PO DAILY 7 Days Qty: 14 0RF No Action ibuprofen 800 mg tablet 800 mg PO Q8H PRN (Reason: pain) Qty: 60 2RF acetaminophen 500 mg tablet 500 mg PO Q6H PRN (Reason: fever) Qty: 30 3RF oxycodone 5 mg tablet 5 mg PO Q4-6H PRN (Reason: pain) Qty: 25 0RF Referrals Follow up/Referrals: Provider,Referral, MD [Primary Care Provider] - See instructions Activity Restrictions/Add. Instructions Additional Instructions/Restrictions: You were evaluated in the ER. You are appropriate for discharge at this time. Take the prescribed antibiotics as directed, do not skip doses, do not stop taking them early. Continue using the ointment provided from OB on your wounds. Also continue taking all other home medications as prescribed. Drink plenty of water. Make an appointment with OB for follow-up. Also follow-up with your primary care physician. Return to the ER with new, worsening, or otherwise concerning symptoms. Clinical Impressions Clinical Impression: Migraine, Vaginal discharge Discharge ED Provider: Maura Kaplan General Adult HPI General Chief complaint: Dizziness Stated complaint: dizzy, migrane, pus in surgery wound Time Seen by Provider: 04/21/24 00:48 Mode of Arrival: Ambulatory Source of Information: Patient Limitations: No Limitations Description of Symptoms (Recalled from ER Triage Doc. by RN): Patient presented to the ED for dizziness. Patient stated she had a procedure with Dr. Cobos that she doesn't remember what it is called but had multiple wart-like bumps that were lasered off around her vagina on 04/11. Patient states 2-3 days later she called Dr. Cobos due to dizziness and she suggested her sugar was low but was fine and resolved. Today patient developed a migraine with the dizziness and also has nausea with purulent drainage from area. No fever. Patient does not have pain to area at this time due to taking percocet 1 hour ago prescribed by Papito. History of Present Illness HPI narrative: 23-year-old female presents to the ER for concerns of dizziness, headache, seeing spots. 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 She states her symptoms started a few days after this and so she called Dr. Cobos who recommended she continue monitoring her symptoms in case this was just fluctuations in her blood pressure or blood sugar. Patient states today her symptoms worsened with migraine type symptoms, having floaters, and dizziness accompanied by nausea. Patient also described concern for thick, yellow material from the wound area. Patient states her pain has been controlled with the Percocet that was prescribed to her. She denies fevers. She states she has not had vomiting despite having nausea. Patient does states she started bleeding from her menstrual cycle. She also reports she is using the burn cream as directed. 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 Patient was sent home with Silvadene and lidocaine cream and instructions for sitz bath's and NATHALIE care according to the operative note. Patient reports when she called Dr. Papito huerta with her ongoing symptoms and concerns for this discharge she suggested she come to the ER for evaluation of possible infection. Patient reports her symptoms are consistent with her migraines so she is not sure if they are related to migraines or her procedure. Related Data Previous Rx's Medication Instructions Recorded acetaminophen 500 mg tablet 500 mg PO Q6H PRN fever #30 tabs 04/11/24 ibuprofen 800 mg tablet 800 mg PO Q8H PRN pain #60 tabs 04/11/24 oxycodone 5 mg tablet 5 mg PO Q4-6H PRN pain #25 tabs 04/11/24 sulfamethoxazole 800 1 tab PO DAILY 7 days #14 tabs 04/21/24 mg-trimethoprim 160 mg tablet Allergies Allergy/AdvReac Type Severity Reaction Status Date / Time glimepiride Allergy Mild Verified 04/11/24 06:21 pantoprazole [From Protonix] Allergy Verified 04/11/24 06:21 [facility] Disclaimer: The information contained in this section may have been updated after the patient was seen, as this information can be updated by other users. Medical History Abnormal Pap smear of cervix History of pre-eclampsia History of gestational diabetes Anxiety Insomnia Scoliosis DDD (degenerative disc disease) Post traumatic stress disorder Major depression Surgical History History of eye surgery History of appendectomy History of section Family History Other Anemia Asthma Cancer Diabetes FHx: mental illness Hyperlipidemia Hypertension Thyroid disorder Social History (Updated 04/11/24 @ 07:17 by Jaqui Robertson CRNA) Smoking Status: Current every day smoker alcohol intake: never substance use type: denies use current occupational status: employed Travel in the last 8 weeks: None ROS Obtained: Yes All systems reviewed & no additional complaints except as documented Constitutional Constitutional: Denies chills, Denies fever(s), Reports headache(s) and Denies weakness Eyes Eyes: Denies change in vision and Reports floaters ENT Ears, Nose, Mouth, and Throat: Reports dizziness, Reports headache(s), Denies nasal congestion and Denies sore throat Cardiovascular Cardiovascular: Denies chest pain, Denies dyspnea and Denies leg edema Respiratory Respiratory: Denies cough and Denies dyspnea Gastrointestinal Gastrointestingal: Reports nausea; Denies constipation, diarrhea or vomiting Genitourinary Female Genitourinary: Denies dysuria and Reports vaginal discharge Musculoskeletal Musculoskeletal: Denies arthralgias, Denies myalgias, Denies numbness and Denies tingling Integumentary/Breasts Skin/Breast: Denies change in pigmentation Neurologic Neurologic: Reports dizziness, Reports headache(s), Denies numbness, Denies tingling and Denies weakness Physical Exam General General appearance: alert and in no apparent distress Head Head exam: atraumatic and normocephalic Eye Eye exam: Present PERRL and EOMI ENT ENT exam: Present mucous membranes moist Neck Neck exam: Present normal inspection and full ROM Chest Chest inspection: Present symmetric chest wall rise Respiratory Respiratory exam: Present normal lung sounds bilaterally; Absent respiratory distress, wheezes or stridor Cardiovascular Cardiovascular exam: Present regular rate and normal rhythm Abdominal Exam Abdominal exam: Present soft; Absent distention, tenderness, guarding or rebound External exam: Present other (Multiple wounds from laser excision, covered in white Silvadene cream. Wound at the posterior aspect of the vaginal introitus has small amount of milky, yellow material without palpable abscess, mild erythema without significant induration) Speculum exam: Present vaginal bleeding and other (No internal wound or abscess appreciated) Bimanual exam: Present other (No vaginal tenderness or mass appreciated) Extremities Exam Extremities exam: Present full ROM Neurological Exam Neurological exam: Present alert, oriented X3 and CN II-XII intact; Absent motor sensory deficit Psychiatric Psychiatric exam: Present normal affect and normal mood Skin Skin exam: Present warm and dry Medical Decision Making Eric Inquiry Pt receiving controlled substance: No Vital Signs: 04/21/24 00:35 Temperature 97.9 F Temperature Source Oral Pulse Rate [Right Brachial] 79 Respiratory Rate 18 Blood Pressure [Right Arm] 136/99 H Blood Pressure Mean [Right Arm] 111 02 Sat by Pulse Oximetry 98 Oxygen Delivery Method Room Air Lab Data Lab Results 04/21/24 01:10: WBC 6.1, RBC 4.79, Hgb 13.8, Hct 40.7, MCV 84.9, MCH 28.9, MCHC 34.0, RDW 14.2, Plt Count 256, MPV 8.0, Neut % (Auto) 39.6, Lymph % (Auto) 48.0, [place] % (Auto) 9.6 H, Eos % (Auto) 1.1, Baso % (Auto) 1.6, Neut # (Auto) 2.4, Lymph # (Auto) 2.9, [place] # (Auto) 0.6, Eos # (Auto) 0.1, Baso # (Auto) 0.1, PT 10.3, INR 0.91, Sodium 138, Potassium 3.5, Chloride 107, Carbon Dioxide 28, Anion Gap 6.5, BUN 5 L, Creatinine 0.90, Estimated Creat Clear 137, Estimated GFR 76, Est GFR ( Amer) 92, Glucose 99, Lactate 1.1, Calcium 9.3, Total Bilirubin 0.2, AST 24, ALT 24, Alkaline Phosphatase 64, C-Reactive Protein 9.5 H, Total Protein 6.7, Albumin 4.0, Globulin 2.7, Albumin/Globulin Ratio 1.5, Serum HCG, Qual Negative 04/21/24 01:39: Urine Color Yellow, Urine Appearance Clear, Urine pH 6.0, Ur Specific [place] 1.015, Urine Protein Negative, Urine Glucose (UA) Negative, Urine Ketones Negative, Urine Blood 3+, Urine Nitrate Negative, Urine Bilirubin Negative, Urine Urobilinogen 0.2, Ur Leukocyte Esterase Negative, Urine RBC 50-100, Urine WBC Occasional, Ur Squamous Epith Cells 5-10, Urine Bacteria Trace 04/21/24 01:10 04/21/24 01:10 Orders (Tests/Meds): ED MEDICATIONS Discontinued Medications Generic Name Dose Route Start Last Admin Trade Name Yoav PRN Reason Stop Dose Admin Acetaminophen 1,000 mg 04/21/24 00:49 04/21/24 01:00 Acetaminophen 1,000mg/100ml Vial IV 04/21/24 00:50 1,000 mg ONCE ONE Administration Diphenhydramine HCl 25 mg 04/21/24 01:16 04/21/24 01:26 Diphenhydramine 50mg/Ml Vial IV 04/21/24 01:17 25 mg ONCE ONE Administration Lactated Ringer's 500 mls @ 999 mls/hr 04/21/24 00:49 04/21/24 01:00 Lactated Ringer's 1000 Ml Bag IV 04/21/24 01:19 500 mls/hr .Q31M ONE Administration Ketorolac Tromethamine 15 mg 04/21/24 01:16 04/21/24 01:26 Ketorolac 30mg/Ml Vial IV 04/21/24 01:17 15 mg ONCE ONE Administration Metoclopramide HCl 10 mg 04/21/24 01:16 04/21/24 01:27 Metoclopramide Hcl 10mg/2ml Vial IVP 04/21/24 01:17 10 mg ONCE ONE Administration Trimethoprim/Sulfamethoxazole 1 each 04/21/24 02:17 04/21/24 02:19 Sulfa/Trimethoprim 1 Tablet PO 04/21/24 02:18 1 each ONCE ONE Administration ORDERS Category Date Time Status CBC w/Auto Diff [Complete Blood Count Auto Diff] Stat Lab 04/21/24 01:10 Completed CMP [Comprehensive Metabolic Panel] Stat Lab 04/21/24 01:10 Completed CRP [C-Reactive Protein] Stat Lab 04/21/24 01:10 Completed HCG Qualitative, Serum Stat Lab 04/21/24 01:10 Completed Lactic Acid Stat Lab 04/21/24 01:10 Completed PT INR [Prothrombin Time INR] Stat Lab 04/21/24 01:10 Completed Urinalysis and Microscopic Stat Lab 04/21/24 01:39 Completed Medical Decision Narrative: In summary, this 23-year-old female presents to the emergency department today with concerns of headache, floaters, dizziness as well as abnormal vaginal discharge in the setting of recent condyloma removal. On initial evaluation patient is hemodynamically stable, afebrile, GCS 15, no neurologic deficits, abdomen soft, nontender, nondistended, exam notable for 1 lesion with small amount of milky yellow material, remaining areas appear to be healing well, no obvious abscess or induration, no vaginal tenderness or mass. Differential diagnosis includes but is not limited to cellulitis, abscess, urinary tract infection, migraine headache, electrolyte abnormality, dehydration. I considered possibility of necrotizing infection however patient does not have significant pain, induration, swelling, or any other findings consistent with that. She has also been afebrile. She also does not have risk factors such as diabetes. Based on these concerns, I ordered basic labs, inflammatory markers, CMP, UA, treatment for symptoms. Patient received migraine cocktail, IV fluids. Labs personally reviewed demonstrate no leukocytosis, only slightly elevated CRP which is nonspecific, nonactionable at this time, normal lactate, remainder of labs are nonactionable. With reassuring labs and exam I do not believe patient requires any imaging at this time. On reassessment patient states her symptoms are starting to improve. She is resting comfortably. I discussed this case with Dr. Cobos who is already aware of the patient being in the ER. We discussed my findings on exam as well as her labs and she agrees with no additional imaging being necessary. I discussed that I would like to place the patient on antibiotics given I cannot rule out infection with the milky yellow material at the 6 o'clock position of the external vagina. She agrees with this. Patient received 1 dose of Bactrim in the ER and it was prescribed for outpatient management. Patient was given instructions on symptomatic management, follow up instructions, and return precautions for the emergency department. Patient indicated understanding and was discharged in stable condition. Critical Care Critical Care Time Critical Care Time: No
[2024-04-21] MEDS: METOCLOPRAMIDE HCL 10MG/2ML VIAL 10 MG IVP (01:27)
[2024-04-21 01:28] LABS: Alanine Aminotransferase 24 U/L (12-78); Albumin/Globulin Ratio 1.5 (1.1-1.8); Alkaline Phosphatase 64 U/L (38-126); Anion Gap 6.5 mEq/L (5-15); Aspartate Amino Transferase 24 U/L (14-36); Bilirubin,Total 0.2 mg/dl (0.2-1.3); Blood Urea Nitrogen 5 mg/dl (7-17); Carbon Dioxide 28 mmol/L (22.0-30.0); Creatinine Clearance Estimated 137 mL/min (50-200); Estimated Glomerular Filt Rate 76 ml/min (>60); GFR (African American) 92 ML/MIN (>60); Globulin 2.7 g/dL (1.3-3.2); HCG Qualitative, Serum Negative (Negative); Total Protein,Serum 6.7 g/dl (6.3-8.2)
[2024-04-21 01:29] LABS: Calcium 9.3 mg/dl (8.4-10.2); Glucose 99 mg/dl (74-100); Lactic Acid 1.1 mmol/L (0.7-2.1)
[2024-04-21 01:42] LABS: Appearance,Urine CLEAR (Clear); Bilirubin,Urine Negative (Negative); Blood, Urine 3+ (Negative); Color,Urine YELLOW (Yellow); Glucose,Urine (UA) Negative (Negative); Ketones,Urine Negative (Negative); Leukocyte Esterase,Urine Negative (Negative); Microscopic, Urine URINE MICROSCOPIC (MICROSCOPIC); Nitrate,Urine Negative (Negative); Protein,Urine Negative (Negative); Specific Gravity, Urine 1.015 (1.005-1.030); Urobilinogen,Urine 0.2 EU/dl (0.2)
[2024-04-21 01:43] LABS: C-Reactive Protein 9.5 mg/L (0-4)
[2024-04-21 01:49] LABS: WBC,Urine Occasional #/hpf (0-3)
[2024-04-21 01:50] LABS: Bacteria,Urine Trace /lpf; RBC,Urine 50-100 #/hpf (0-3)
[2024-04-21] MEDS: SULFA/TRIMETHOPRIM 1 TABLET 1 EACH PO (02:19)
[2024-04-21 02:27] VITALS: BP 127/80; PULSE 61; RESP 16; TEMP 36.8; O2SAT 97
== END 2024-04-21 02:32 | disposition home or self-care (01) ==
PROVIDERS: Emergency Provider Emergency Medicine
DX: G43.909 Migraine, unspecified, not intractable, without status migrainosus (principal); N89.8 Other specified noninflammatory disorders of vagina; R42 Dizziness and giddiness; R11.0 Nausea; F17.210 Nicotine dependence, cigarettes, uncomplicated; Z98.890 Other specified postprocedural states; A63.0 Anogenital (venereal) warts
CPT/HCPCS: 80053; 81001; 83605; 84703; 85025; 85610; 86140; 96374; 96375; 99284; J0131; J1885; J2765; J7120

== ENCOUNTER 2024-07-31 17:54 | Emergency (ER) | payer MEDICAID, SELFPAY ==
[2024-07-31 19:20] VITALS: BP 138/72; PULSE 61; RESP 17; TEMP 37; O2SAT 98; BMI 36.3
--- NOTE | 2024-07-31 19:42 | EXP.UTC ---
Discharge Plan Disposition Patient Disposition: Home, Self-Care Condition: Good Prescriptions Prescriptions: No Action venlafaxine 37.5 mg capsule,extended release 24hr 37.5 mg PO DAILY aripiprazole 5 mg tablet 5 mg PO DAILY Referrals Follow up/Referrals: Provider,Referral, [Primary Care Provider] - See instructions Activity Restrictions/Add. Instructions Additional Instructions/Restrictions: *Monitor Temp, Over the counter Motrin or Tylenol as directed/as needed Tylenol every 4 hours and Motrin every 6 hours (as long as your family doctor has told you that you can take it) for fever or pain. and straight to ER if unable to lower temp less than 101.0 after medication given *Warm salt water gargles may help to soothe the throat *Throat Lozenges? *Warm fluids like tea with honey may help to soothe the throat? *Sleep elevated *Humidifier/Vaporizer * Your throat swab was sent for culture. Those results are typically sent to your primary care. Be sure to follow up in 2-3 days with your family doctor/primary care physician if no improvement so they can review those result and treat if necessary. If you don?t have a primary care doctor, I recommend you get one but in the mean time, you will have to return to a walk in clinic Follow up IMMEDIATELY for new or worsening symptoms or no Noticeable improvement over the next 48-72 hours. 911 for difficulty breathing or swallowing Clinical Impressions Clinical Impression: Sore throat (viral) Instructions Patient Instructions: Sore Throat Print Language Print Language: Upper Sorbian Discharge ED Provider: Francia Ray [facility] HPI General Stated complaint: sore throat Mode of Arrival: Ambulatory Source of Information: Patient Limitations: No Limitations Time Seen by Provider: 07/31/24 19:42 Description of Symptoms (Recalled from Triage Doc. by RN): PATIENT C/O SORE THROAT SINCE YESTERDAY HEENT Symptoms (Recalled from RN notes): Yes Resp Symptoms (Recalled from RN notes): No Skin Symptoms (Recalled from RN notes): No MS Symptoms (Recalled from RN notes): No Functional Status (Recalled from RN notes): WNL History of Present Illness Provider Complaint: Patient states that her daughter has strep throat and her throat started hurting yesterday and she was worried that she may have strep throat now also so she came in wanting to get tested Related Data Home Medications ?Medication ?Instructions ?Recorded ?Confirmed aripiprazole 5 mg tablet 5 mg PO DAILY 05/02/24 07/31/24 venlafaxine 37.5 mg 37.5 mg PO DAILY 05/02/24 07/31/24 capsule,extended release 24 hr Allergies Allergy/AdvReac Type Severity Reaction Status Date / Time glimepiride Allergy Mild Verified 05/02/24 08:39 pantoprazole [From Protonix] Allergy Verified 05/02/24 08:39 Worker's Comp Is this a Worker's Comp case?: No [facility] Disclaimer: The information contained in this section may have been updated after the patient was seen, as this information can be updated by other users. Medical History Abnormal Pap smear of cervix History of pre-eclampsia History of gestational diabetes Anxiety Insomnia Scoliosis DDD (degenerative disc disease) Post traumatic stress disorder Major depression Surgical History History of eye surgery History of appendectomy History of section Family History Other Anemia Asthma Cancer Diabetes FHx: mental illness Hyperlipidemia Hypertension Thyroid disorder Social History Smoking Status: Current every day smoker alcohol intake: never substance use type: denies use current occupational status: employed Travel in the last 8 weeks: None ROS Obtained: Yes All systems reviewed & no additional complaints except as documented and Yes Systems reviewed as appropriate & no additional complaints except as documented Constitutional Constitutional: Reports system reviewed and no additional complaints, except as documented and Reports as per HPI ENT Ears, Nose, Mouth, and Throat: Reports system reviewed and no additional complaints, except as documented, Reports as per HPI and Reports sore throat Cardiovascular Cardiovascular: Reports system reviewed and no additional complaints, except as documented and Reports as per HPI Respiratory Respiratory: Reports system reviewed and no additional complaints, except as documented and Reports as per HPI Gastrointestinal Gastrointestingal: Reports system reviewed and no additional complaints, except as documented and as per HPI Genitourinary Female Genitourinary: Reports system reviewed and no additional complaints, except as documented and Reports as per HPI Musculoskeletal Musculoskeletal: Reports system reviewed and no additional complaints, except as documented and Reports as per HPI Physical Exam General General appearance: alert and in no apparent distress ENT ENT exam: Present mucous membranes moist Expanded ENT Exam Nose exam: Absent sinus tenderness Throat exam: Present tonsillar erythema; Absent tonsillomegaly or tonsillar exudate Respiratory Respiratory exam: Present normal lung sounds bilaterally; Absent respiratory distress or wheezes Cardiovascular Cardiovascular exam: Present regular rate, normal rhythm and normal heart sounds Neurological Exam Neurological exam: Present alert, oriented X3 and normal gait Medical Decision Making Medical Records Screening: Per USPSTF and CDC recommendations, given the prevalence of disease in our region, it is our hospital?s policy to screen for HIV and viral Hepatitis for all patients aged 18 and over and those with ongoing risk factors. Eric Inquiry Pt receiving controlled substance: No Eric was queried for this patient: No Vital Signs: 07/31/24 19:20 Temperature 98.6 F Temperature Source Oral Pulse Rate [Left Brachial] 61 Respiratory Rate 17 Blood Pressure [Left Arm] 138/72 Blood Pressure Mean [Left Arm] 94 Blood Pressure Source [Left Arm] Automatic Cuff Blood Pressure Position [Left Arm] Sitting 02 Sat by Pulse Oximetry 98 Oxygen Delivery Method Room Air Lab Data Lab results reviewed: Yes I reviewed the patient's lab results.
[2024-07-31 19:49] LABS: UTC Strep Screen (Rapid) Negative (Negative)
[2024-07-31 19:51] VITALS: BP 138/72; PULSE 61; RESP 17; TEMP 37; O2SAT 98
== END 2024-07-31 19:55 | disposition home or self-care (01) ==
PROVIDERS: Emergency Provider Nurse Practitioner
DX: J02.9 Acute pharyngitis, unspecified (principal)
CPT/HCPCS: 87880; 99213; G0381

== ENCOUNTER 2024-08-09 01:13 | Emergency (ER) | payer MEDICAID, SELFPAY ==
[2024-08-09] VITALS (7 sets, daily range): BP systolic 99–136; BP diastolic 61–90; PULSE 51–107; RESP 11–18; TEMP 36.5–36.8; O2SAT 97–100; BMI 37.8
--- NOTE | 2024-08-09 01:41 | ECG_ITS ---
APPROVED REPORT Exam: Resting ECG HR:68 bpm ECG Measurements Heart Rate 68 AXES WA 162 P 63 QRSd 94 QRS 75 QT 378 T 39 QTc 395 Conclusion SINUS RHYTHM NORMAL ECG Electronically signed by : CHUY LOZA, 08/09/2024 07:50:39
--- NOTE | 2024-08-09 01:44 | XR_ITS ---
PROCEDURE INFORMATION: Exam: XR Chest Exam date and time: 08/09/2024 2:28 AM Age: 23 years old Clinical indication: Pain; Left-sided; Additional info: Luq abd pain, pain with inspiration TECHNIQUE: Imaging protocol: Radiologic exam of the chest. Views: 2 views. COMPARISON: CR XR CHEST 2V 08/09/2024 2:28 AM FINDINGS: Lungs: Unremarkable. No consolidation. Pleural spaces: Unremarkable. No pleural effusion. No pneumothorax. Heart/Mediastinum: Unremarkable. No cardiomegaly. Bones/joints: Unremarkable. IMPRESSION: No acute findings.
--- NOTE | 2024-08-09 01:49 | HMH.EDGENADL ---
Discharge Plan Disposition Patient Disposition: Home, Self-Care Condition: Good Prescriptions Prescriptions: New ondansetron 4 mg tablet,disintegrating 4 mg PO Q6H PRN (Reason: nausea and vomiting) Qty: 10 0RF No Action venlafaxine 37.5 mg capsule,extended release 24hr 37.5 mg PO DAILY aripiprazole 5 mg tablet 5 mg PO DAILY Referrals Follow up/Referrals: Forest Romero II, MD [Staff Physician] - See instructions (LUQ abd pain, also has hx GERD) Provider,Gal[place], [Primary Care Provider] - See instructions Activity Restrictions/Add. Instructions Additional Instructions/Restrictions: You were evaluated in the ER and are appropriate for discharge at this time. Take the prescribed ondansetron as directed if needed for nausea. Drink plenty of water. Make an appointment with your primary care doctor for reevaluation in a few days. Also call the GI office for an appointment with Dr. Romero for reevaluation. Return to the ER with new, worsening, or otherwise concerning symptoms Clinical Impressions Clinical Impression: Abdominal pain, LUQ, Left flank pain, Nausea, Diarrhea Print Language Print Language: Sinhala Discharge ED Provider: Maura Kaplan General Adult HPI General Chief complaint: PAIN Stated complaint: pain L upper abd,hurts to breathe,throat tightness Time Seen by Provider: 08/09/24 01:23 Mode of Arrival: Ambulatory Source of Information: Patient Limitations: No Limitations Description of Symptoms (Recalled from ER Triage Doc. by RN): Pt reports to ED with cc of left sided flank pain. Pt states the pain radiates from her flank area into her left shoulder. Pt states having nausea and diarreha. Pt states these symptoms have been occuring for approx a couple days. Pt states laying flat helps the pain. Pt states eating worsens the pain. Pt states for a approx months when she eats she feels that her throat is closing. History of Present Illness HPI narrative: 23-year-old female presents to the ER with chief complaint of left flank pain. Patient states she has a history of migraines, anxiety. She currently is not on any medications and reports she and her partner are trying to conceive. Patient states she has had left flank pain for the last 3 days. It has been steady and worsening. She states it radiates from her left flank around to the front as well as up her back into her left shoulder. She reports having nausea and diarrhea but no vomiting. Diarrhea is nonbloody, nonmelanotic. Patient denies any fevers, chills, she does states she has worse pain with deep inspiration, she states laying flat helps the pain. Patient reports that eating worsens her pain. Separately, patient reports for the last few months when she eats, she feels like her throat is closing. She states she does have a history of reflux and is not currently taking any medications for that. She states her throat feels fine right now, she is breathing comfortably, no difficulty swallowing, no pain with swallowing. Patient reports no known sick contacts. She denies dysuria or hematuria, states she has no history of kidney stones. She states that her urine has been dark the last few days. Related Data Home Medications ?Medication ?Instructions ?Recorded ?Confirmed aripiprazole 5 mg tablet 5 mg PO DAILY 05/02/24 08/05/24 venlafaxine 37.5 mg 37.5 mg PO DAILY 05/02/24 08/05/24 capsule,extended release 24 hr Previous Rx's ?Medication ?Instructions ?Recorded ondansetron 4 mg disintegrating 4 mg PO Q6H PRN nausea and 08/09/24 tablet vomiting #10 tabs Allergies Allergy/AdvReac Type Severity Reaction Status Date / Time glimepiride Allergy Mild Verified 08/05/24 13:57 pantoprazole [From Protonix] Allergy Verified 08/05/24 13:57 [facility] Disclaimer: The information contained in this section may have been updated after the patient was seen, as this information can be updated by other users. Medical History Abnormal Pap smear of cervix History of pre-eclampsia History of gestational diabetes Anxiety Insomnia Scoliosis DDD (degenerative disc disease) Post traumatic stress disorder Major depression Surgical History History of eye surgery History of appendectomy History of section Family History Other Anemia Asthma Cancer Diabetes FHx: mental illness Hyperlipidemia Hypertension Thyroid disorder Social History Smoking Status: Current every day smoker alcohol intake: never substance use type: denies use current occupational status: employed Travel in the last 8 weeks: None Other Medical History Have you received the Flu Vaccine for this season: No Have you received the Pneumonia Vaccine: No ROS Obtained: Yes All systems reviewed & no additional complaints except as documented Positive ROS per HPI Physical Exam General General appearance: alert Comment: Obviously in pain, tearful, not in extremis Head Head exam: atraumatic and normocephalic Eye Eye exam: Present PERRL and EOMI ENT ENT exam: Present mucous membranes moist Neck Neck exam: Present normal inspection and full ROM Chest Chest inspection: Present symmetric chest wall rise Respiratory Respiratory exam: Present normal lung sounds bilaterally; Absent respiratory distress, wheezes or stridor Cardiovascular Cardiovascular exam: Present normal rhythm and tachycardia Abdominal Exam Abdominal exam: Present soft and tenderness; Absent distention, guarding or rebound Abdominal tenderness: Present LUQ and moderate Extremities Exam Extremities exam: Present full ROM and normal capillary refill; Absent edema Back Exam Back exam: Present CVA tenderness (L) (Mild); Absent CVA tenderness (R) Neurological Exam Neurological exam: Present alert and oriented X3; Absent motor sensory deficit Psychiatric Psychiatric exam: Present normal mood and other (Tearful from pain) Skin Skin exam: Present warm and dry Medical Decision Making Medical Records Medical records reviewed: Yes I reviewed the patient's medical records. Screening: Per USPSTF and CDC recommendations, given the prevalence of disease in our region, it is our hospital?s policy to screen for HIV and viral Hepatitis for all patients aged 18 and over and those with ongoing risk factors. MR Comment: OB progress note from 08/05/2024 demonstrates patient is 4 months status post condyloma excision with controlled pain. She has had a few new lesions since excision. Patient also reported a goal of becoming again. Plan from that visit was to repeat TSH panel, follow-up in a few weeks to freeze additional condylomas, and order progesterone levels Eric Inquiry Pt receiving controlled substance: No Vital Signs: 08/09/24 01:21 08/09/24 02:54 08/09/24 03:00 Temperature 98.2 F Temperature Source Oral Pulse Rate 65 57 L Pulse Rate [Left Radial] 107 H Respiratory Rate 16 16 14 Blood Pressure 112/73 115/85 Blood Pressure [Right Arm] 136/90 Blood Pressure Mean [Right Arm] 105 Blood Pressure Source Blood Pressure Source [Right Arm] Automatic Cuff Blood Pressure Position Blood Pressure Position [Right Arm] Sitting 02 Sat by Pulse Oximetry 100 97 97 Oxygen Delivery Method Room Air 08/09/24 03:20 08/09/24 03:41 08/09/24 04:00 Temperature Temperature Source Pulse Rate 51 L 52 L 57 L Pulse Rate [Left Radial] Respiratory Rate 14 11 L 15 Blood Pressure 104/71 L 99/61 L 99/67 L Blood Pressure [Right Arm] Blood Pressure Mean [Right Arm] Blood Pressure Source Blood Pressure Source [Right Arm] Blood Pressure Position Blood Pressure Position [Right Arm] 02 Sat by Pulse Oximetry 97 98 98 Oxygen Delivery Method 08/09/24 04:25 Temperature 97.7 F Temperature Source Oral Pulse Rate 77 Pulse Rate [Left Radial] Respiratory Rate 18 Blood Pressure 100/62 L Blood Pressure [Right Arm] Blood Pressure Mean [Right Arm] Blood Pressure Source Automatic Cuff Blood Pressure Source [Right Arm] Blood Pressure Position Supine Blood Pressure Position [Right Arm] 02 Sat by Pulse Oximetry Oxygen Delivery Method Room Air Lab Data Lab Results 08/09/24 01:48: Urine Color Yellow, Urine Appearance Clear, Urine pH 5.5, Ur Specific [place] >= 1.030, Urine Protein Negative, Urine Glucose (UA) 1+, Urine Ketones Negative, Urine Blood Trace-i, Urine Nitrate Negative, Urine Bilirubin Negative, Urine Urobilinogen 0.2, Ur Leukocyte Esterase Negative, Urine RBC 5-10, Urine WBC Occasional, Ur Squamous Epith Cells 10-20, Urine Bacteria Trace 08/09/24 02:01: WBC 11.5 H, RBC 5.59 H, Hgb 15.9, Hct 46.9, MCV 83.9, MCH 28.5, MCHC 34.0, RDW 13.5, Plt Count 291, MPV 8.0, Neut % (Auto) 51.0, Lymph % (Auto) 39.9, [place] % (Auto) 7.0, Eos % (Auto) 0.8, Baso % (Auto) 1.3, Neut # (Auto) 5.9, Lymph # (Auto) 4.6 H, [place] # (Auto) 0.8, Eos # (Auto) 0.1, Baso # (Auto) 0.2, PT 9.9 L, INR 0.87 L, D-Dimer 0.51 H, Sodium 138, Potassium 3.9, Chloride 100, Carbon Dioxide 26, Anion Gap 15.9 H, BUN 9, Creatinine 0.80, Estimated Creat Clear 154, Estimated GFR 87, Est GFR ( Amer) 106, Glucose 84, Lactate 0.8, Calcium 9.9, Total Bilirubin 0.7, AST 33, ALT 48, Alkaline Phosphatase 70, Troponin I < 0.01, Total Protein 7.5, Albumin 4.7, Globulin 2.8, Albumin/Globulin Ratio 1.7, Lipase 22 L, Serum HCG, Qual Negative, HIV 1&2 Antibody Rapid Nonreactive 08/09/24 02:01 08/09/24 02:01 Orders (Tests/Meds): ED MEDICATIONS Generic Name Dose Route Start Last Admin Trade Name Freq PRN Reason Stop Dose Admin Sodium Chloride 10 ml 08/09/24 02:46 08/09/24 02:48 Sodium Chloride 0.9% 10ml Syr (Rad Only) IV 09/08/24 02:45 10 ml NEEDED PRN Administration Maintain IV Site Discontinued Medications Generic Name Dose Route Start Last Admin Trade Name Freq PRN Reason Stop Dose Admin Iopamidol 80 ml 08/09/24 02:46 08/09/24 02:48 Iopamidol-370 (76%);100ml Bottle IV 08/09/24 02:47 80 ml ONCE ONE Administration Morphine Sulfate 4 mg 08/09/24 01:24 08/09/24 02:20 Morphine 4mg/Ml Syringe IV 08/09/24 01:25 4 mg ONCE ONE Administration Ondansetron HCl 4 mg 08/09/24 01:24 08/09/24 02:20 Ondansetron 4mg/2ml Vial IV 08/09/24 01:25 4 mg ONCE ONE Administration Sodium Chloride 50 ml 08/09/24 02:46 08/09/24 02:47 0.9 % Sodium Chloride 50 Ml Vial IV 08/09/24 02:47 50 ml ONCE ONE Administration ORDERS Category Date Time Status CT angio abdomen pelvis Stat Cat Scan 08/09/24 02:20 Completed XR chest 2V Stat Exams 08/09/24 01:44 Completed CBC w/Auto Diff [Complete Blood Count Auto Diff] Stat Lab 08/09/24 02:01 Completed CMP [Comprehensive Metabolic Panel] Stat Lab 08/09/24 02:01 Completed D-Dimer Stat Lab 08/09/24 02:01 Completed HCG Qualitative, Serum Stat Lab 08/09/24 02:01 Completed HIV (1&2) Antibody Rapid Stat Lab 08/09/24 02:01 Completed Hep C Ab with Reflex to RNA Stat Lab 08/09/24 02:01 Received Lactic Acid Stat Lab 08/09/24 02:01 Completed Lipase Stat Lab 08/09/24 02:01 Completed PT INR [Prothrombin Time INR] Stat Lab 08/09/24 02:01 Completed Troponin I Q3H Lab 08/09/24 02:01 Completed Troponin I Q3H Lab 08/09/24 04:45 Ordered Troponin I Q3H Lab 08/09/24 07:45 Ordered Urinalysis and Microscopic Stat Lab 08/09/24 01:48 Completed Medical Decision Narrative: In summary, this 23-year-old female with comorbidities as described in physical exam presents to the emergency department today with left flank pain radiating to the left upper quadrant into the left shoulder. On initial evaluation patient is obviously uncomfortable, tearful, tachycardic, no respiratory distress, lungs clear bilaterally, tenderness to palpation of the left upper quadrant, mild left CVA tenderness present, no rebound or guarding, no peritonitic signs appreciated, no other abnormalities appreciated on exam. Differential diagnosis includes but is not limited to ACS, PE, urinary tract infection, pyelonephritis, kidney stone, pancreatitis, lactic acidosis, mesenteric adenitis, viral syndrome, splenic infarct, mesenteric ischemia was also considered though it is less likely. Based on these concerns, I ordered serum labs, hCG, urinalysis, cardiac workup, D-dimer. ECG personally interpreted demonstrates normal sinus rhythm, rate 68, normal MO and QTc, normal axis, no STEMI. Patient initially declined medications wanting to wait for test result. When her test was negative, she received morphine, Zofran Labs personally reviewed demonstrate trace leukocytosis with WBC 11.5, lymphocytosis present, nonactionable at this time, UA negative for findings of infection, test negative. PT/INR negative, D-dimer nonactionable by years criteria, CMP nonactionable, initial troponin undetectably low at less than 0.01, I do not believe serial troponins are indicated at this time since patient has had the symptoms steadily for the past 3 days, if they were cardiac in etiology her troponin should be elevated by now. XR personally interpreted demonstrates no acute thoracic abnormality, see radiology read for final interpretation. CT abdomen pelvis personally interpreted demonstrates no acute intra-abdominal pathology, possibly slight thickening of the proximal/left upper quadrant small bowel, however this is not definite. See radiology read for final interpretation. Radiology read did not find any intra-abdominal pathology On reassessment, patient has been resting comfortably. She is tolerating oral intake, she is appropriate for discharge at this time. I prescribed Zofran for outpatient management. I referred her to Dr. Romero with GI for reevaluation of her chronic reflux. Patient was given instructions on symptomatic management, follow up instructions, and return precautions for the emergency department. Patient indicated understanding and was discharged in stable condition. Critical Care Critical Care Time Critical Care Time: No
[2024-08-09 01:54] LABS: Microscopic, Urine URINE MICROSCOPIC (MICROSCOPIC)
[2024-08-09 01:56] LABS: Appearance,Urine CLEAR (Clear); Bilirubin,Urine Negative (Negative); Blood, Urine TRACE-I (Negative); Color,Urine YELLOW (Yellow); Glucose,Urine (UA) 1+ (Negative); Ketones,Urine Negative (Negative); Leukocyte Esterase,Urine Negative (Negative); Nitrate,Urine Negative (Negative); PH,Urine 5.5 (5.0-8.5); Protein,Urine Negative (Negative); Specific Gravity, Urine >= 1.030 (1.005-1.030); Urobilinogen,Urine 0.2 EU/dl (0.2)
[2024-08-09 02:12] LABS: Basophils # 0.2 K/mm3 (0-0.2); Basophils % 1.3 % (0.1-2.0); Eosinophils # 0.1 K/mm3 (0.0-0.4); Eosinophils % 0.8 % (0.1-12.0); Hematocrit 46.9 % (37.0-47.0); Hemoglobin 15.9 g/dL (12.2-16.2); Lymphocytes # 4.6 K/mm3 (0.7-4.5); Lymphocytes % 39.9 % (10-50); Mean Corpuscular Hemoglobin 28.5 pg (27.0-31.2); Mean Corpuscular Volume 83.9 fl (81-99); Monocytes # 0.8 K/mm3 (0.1-1.0); Neutrophils # 5.9 K/mm3 (1.8-7.8); Platelet Count 291 K/mm3 (142-424); Red Blood Count 5.59 M/mm3 (4.20-5.40); Red Cell Distribution Width 13.5 % (11.5-17.5); White Blood Count 11.5 K/mm3 (4.8-10.8)
[2024-08-09 02:12] LABS: Bacteria,Urine Trace /lpf; WBC,Urine Occasional #/hpf (0-3)
[2024-08-09 02:16] LABS: HCG Qualitative, Serum Negative (Negative)
[2024-08-09 02:18] LABS: INR 0.87 (0.9-1.1); Prothrombin Time 9.9 seconds (10.1-12.5)
[2024-08-09 02:19] LABS: Alanine Aminotransferase 48 U/L (12-78); Albumin Level 4.7 g/dl (3.5-5.0); Albumin/Globulin Ratio 1.7 (1.1-1.8); Alkaline Phosphatase 70 U/L (38-126); Anion Gap 15.9 mEq/L (5-15); Aspartate Amino Transferase 33 U/L (14-36); Bilirubin,Total 0.7 mg/dl (0.2-1.3); Blood Urea Nitrogen 9 mg/dl (7-17); Calcium 9.9 mg/dl (8.4-10.2); Carbon Dioxide 26 mmol/L (22.0-30.0); Chloride 100 mmol/L (98-107); Creatinine Clearance Estimated 154 mL/min (50-200); Estimated Glomerular Filt Rate 87 ml/min (>60); GFR (African American) 106 ML/MIN (>60); Globulin 2.8 g/dL (1.3-3.2); Glucose 84 mg/dl (74-100); Lactic Acid 0.8 mmol/L (0.7-2.1); Lipase 22 U/L (23-300); Potassium 3.9 mmoL/L (3.5-5.1); Sodium 138 mmol/L (136-145); Total Protein,Serum 7.5 g/dl (6.3-8.2)
[2024-08-09] MEDS: MORPHINE 4MG/ML SYRINGE 4 MG IV (02:20)
[2024-08-09] MEDS: ONDANSETRON 4MG/2ML VIAL 4 MG IV (02:20)
--- NOTE | 2024-08-09 02:20 | CT_ITS ---
PROCEDURE INFORMATION: Exam: CTA Abdomen and Pelvis With Contrast Exam date and time: 08/09/2024 2:35 AM Age: 23 years old Clinical indication: Abdominal pain; Flank; Left upper quadrant (luq); Additional info: Luq and L flank pain, ttp, radiation to L shoulder TECHNIQUE: Imaging protocol: Computed tomographic angiography of the abdomen and pelvis with contrast. Exam focused on the arteries. 3D rendering (Not supervised by radiologist): MIP and/or 3D reconstructed images were created by the technologist. Radiation optimization: All CT scans at this facility use at least one of these dose optimization techniques: automated exposure control; mA and/or kV adjustment per patient size (includes targeted exams where dose is matched to clinical indication); or iterative reconstruction. Contrast material: ISOVUE; Contrast volume: 80 ml; Contrast route: INTRAVENOUS (IV); COMPARISON: US ABDOMEN LIMITED 09/18/2023 2:09 PM FINDINGS: Aorta: No aortic aneurysm. No aortic dissection. Celiac trunk and mesenteric arteries: No occlusion or significant stenosis. Renal arteries: No occlusion or significant stenosis. Right iliac arteries: No occlusion or significant stenosis. Left iliac arteries: No occlusion or significant stenosis. Liver: No mass. Gallbladder and biliary ducts: Unremarkable. No calcified stones. No ductal dilation. Pancreas: Unremarkable. No mass. No ductal dilation. Spleen: Unremarkable. No splenomegaly. Adrenal glands: Unremarkable. No mass. Kidneys and ureters: Unremarkable. No solid mass. No hydronephrosis. Stomach and bowel: Unremarkable. No obstruction. No mucosal thickening. Appendix: Appendectomy Intraperitoneal space: No free fluid Lymph nodes: Unremarkable. No enlarged lymph nodes. Urinary bladder: Unremarkable. No mass. Reproductive: Small partially collapsed right ovarian enhancing cyst. Bones/joints: No acute fracture. Soft tissues: Unremarkable. IMPRESSION: Negative CT angiogram abdomen and pelvis. No aortic dissection or major arterial occlusion.
[2024-08-09 02:24] LABS: D-Dimer 0.51 ug/mL (0.0-0.5)
[2024-08-09 02:37] LABS: Troponin I < 0.01 ng/ml (0.00-0.034)
[2024-08-09] MEDS: 0.9 % SODIUM CHLORIDE 50 ML VIAL IV (02:47)
[2024-08-09] MEDS: SODIUM CHLORIDE 0.9% 10ML SYR (RAD ONLY) 10 ML IV (02:48)
[2024-08-09] MEDS: IOPAMIDOL-370 (76%);100ML BOTTLE 80 ML IV (02:48)
[2024-08-09 03:03] LABS: HIV (1&2) Antibody Rapid NONREACTIVE (NONREACTIVE)
[2024-08-10 08:22] LABS: HCV Ab Non Reactive (Non Reactive)
== END 2024-08-09 04:29 | disposition home or self-care (01) ==
PROVIDERS: Emergency Provider Emergency Medicine
DX: R10.12 Left upper quadrant pain (principal); R11.0 Nausea; R19.7 Diarrhea, unspecified; R10.9 Unspecified abdominal pain
CPT/HCPCS: 71046; 74174; 80053; 81001; 83605; 83690; 84484; 84703; 85025; 85378; 85610; 86803; 87389; 93005; 96374; 96375; 99285; J2270; J2405; Q9967

== ENCOUNTER 2024-08-18 12:11 | Outpatient (CLI) | payer MEDICAID, SELFPAY ==
[2024-08-18 12:17] LABS: Microscopic, Urine URINE MICROSCOPIC (MICROSCOPIC)
[2024-08-18 12:51] LABS: Appearance,Urine CLEAR (Clear); Bilirubin,Urine Negative (Negative); Blood, Urine 3+ (Negative); Color,Urine YELLOW (Yellow); Glucose,Urine (UA) Negative (Negative); Ketones,Urine Negative (Negative); Leukocyte Esterase,Urine Negative (Negative); Nitrate,Urine Negative (Negative); Protein,Urine Negative (Negative); Urobilinogen,Urine 0.2 EU/dl (0.2)
[2024-08-18 13:33] LABS: Iron 64 ug/dL (37-170)
[2024-08-18 13:42] LABS: Total Iron Binding Capacity 357 ug/dL (265-497)
[2024-08-18 14:05] LABS: 25-OH Vitamin D, Total 31.2 ng/mL (30-100)
[2024-08-18 14:08] LABS: Ferritin 14.4 ng/ml (6.24-137)
[2024-08-18 16:24] LABS: Vitamin B12 468 pg/mL (239-931)
[2024-08-20 04:14] LABS: Anti-Thrombin III Antigen 86 % (72-124); Antithrombin Activity 98 % (75-135); Protein S, Free 115 % (61-136); Protein S, Total 86 % (60-150); Protein S-Functional 118 % (63-140)
[2024-08-20 12:16] LABS: Peripheral Smear Review Scanned Result
[2024-08-21 07:20] LABS: Protein C Antigen 99 % (60-150)
[2024-09-10 08:35] LABS: Antinuclear Antibodies (ANA) NEGATIVE
== END 2024-08-18 23:59 | disposition home or self-care (01) ==
PROVIDERS: PCP Nurse Practitioner Family; Visit Provider Obstetrics & Gynecology
DX: R23.3 Spontaneous ecchymoses (principal); R53.83 Other fatigue; R31.9 Hematuria, unspecified; Z68.37 Body mass index [BMI] 37.0-37.9, adult; E53.8 Deficiency of other specified B group vitamins; M25.50 Pain in unspecified joint
CPT/HCPCS: 36415; 81001; 81241; 82306; 82607; 82728; 83540; 83550; 85300; 85301; 85302; 85305; 85306; 86038; 86225; 86235; 87086

== ENCOUNTER 2024-08-22 09:11 | Outpatient (CLI) | payer OTHER, MEDICAID, SELFPAY ==
--- NOTE | 2024-08-22 09:11 | US_ITS ---
FINAL REPORT CLINICAL HISTORY: abd pain COMPARISON: None FINDINGS: Sonographic images of the abdomen were obtained. There is increased echogenicity of the liver consistent with fatty infiltration. The gallbladder has an unremarkable appearance without evidence of gallstones. There is no evidence of biliary ductal dilatation. The common hepatic duct measures 3 mm, which is within normal limits. The pancreas is only partially visualized. The spleen size is normal. The right kidney measures 11.4 in length. The left kidney measures 10.8 in length. There is normal renal echogenicity. There is no evidence of hydronephrosis. The aorta has an unremarkable appearance. Limited images of the inferior vena cava are unremarkable. IMPRESSION: Fatty infiltration of the liver. Reviewed, Interpreted and Dictated by Lonny Mullen III, MD Transcribed by Ebonie Moore Authenticated and [facility]
[2024-08-22] MEDS: ALBUTEROL 0.083% 2.5 MG/3 ML NEB IH (10:15)
== END 2024-08-22 23:59 | disposition home or self-care (01) ==
LOC: RAD 09:11
PROVIDERS: PCP Nurse Practitioner Family; Visit Provider Nurse Practitioner Family
DX: R10.12 Left upper quadrant pain (principal); R10.9 Unspecified abdominal pain; R11.0 Nausea; R19.7 Diarrhea, unspecified; R53.83 Other fatigue; R10.11 Right upper quadrant pain; R06.02 Shortness of breath
CPT/HCPCS: 76700; 94060; J7613

== ENCOUNTER 2024-10-05 08:26 | Emergency (ER) | payer OTHER, MEDICAID, SELFPAY ==
[2024-10-05 09:00] VITALS: BP 131/88; PULSE 76; RESP 17; TEMP 36.8; O2SAT 99; BMI 34.9
[2024-10-05 09:16] LABS: UTC Strep Screen (Rapid) Positive (Negative)
--- NOTE | 2024-10-05 09:17 | ED_ITS ---
Discharge Plan Disposition Patient Disposition: Home, Self-Care Condition: Good Prescriptions Prescriptions: No Action aripiprazole 5 mg tablet 5 mg PO DAILY famotidine 20 mg tablet 20 mg PO DAILY cyclobenzaprine 10 mg tablet 10 mg PO HS hydroxyzine pamoate 100 mg capsule 100 mg PO TID Referrals Follow up/Referrals: Massiel Hardin APRN [Primary Care Provider] - See instructions Activity Restrictions/Add. Instructions Additional Instructions/Restrictions: *Monitor Temp, Over the counter Motrin or Tylenol as directed/as needed Tylenol every 4 hours and Motrin every 6 hours (as long as your family doctor has told you that you can take it) for fever or pain. and straight to ER if unable to lower temp less than 101.0 after medication given *Warm salt water gargles may help to soothe the throat *Throat Lozenges? *Warm fluids like tea with honey may help to soothe the throat? *Sleep elevated *Humidifier/Vaporizer *If you did not take Penicillin shot or was unable to, start taking antibiotic immediately and make sure that you take it for the FULL length of time although you should start to feel better in 24-48 hours *change toothbrush and toothpaste 24-48 hours after starting to take antibiotics so you do not reinfect yourself Monitor Temp. Tylenol and/or Ibuprofen as needed. ER if fever is no less than 101 despite alternating Tylenol and Ibuprofen * Encourage fluids, water, Gatorade, powerade, pedialyte if /toddler/or child *Cold fluids, popsicles and ice cream may feel good on his throat Follow up IMMEDIATELY for new or worsening symptoms or no Noticeable improvement over the next 48-72 hours. 911 for difficulty breathing or swallowing Clinical Impressions Clinical Impression: Strep throat Instructions Patient Instructions: Strep Throat, DI for Strep Throat Print Language Print Language: Macedonian Discharge ED Provider: Francia Ray [facility] [place] HPI General Stated complaint: sore throat, congeseted Mode of Arrival: Ambulatory Source of Information: Patient Limitations: No Limitations Time Seen by Provider: 10/05/24 09:18 Description of Symptoms (Recalled from Triage Doc. by RN): PATIENT C/O SORE THR OAT X 4 DAYS, RECENTLY EXPOSED TO STREP HEENT Symptoms (Recalled from RN notes): Yes Resp Symptoms (Recalled from RN notes): No Skin Symptoms (Recalled from RN notes): No MS Symptoms (Recalled from RN notes): No Functional Status (Recalled from RN notes): WNL History of Present Illness Provider Complaint: Patient states daughter recently had strep throat and now she thinks she has it too States that her throat is sore and scratchy and hurts when she swallows Related Data Home Medications ?Medication ?Instructions ?Recorded ?Confirmed aripiprazole 5 mg tablet 5 mg PO DAILY 05/02/24 10/05/24 cyclobenzaprine 10 mg tablet 10 mg PO HS 08/18/24 10/05/24 famotidine 20 mg tablet 20 mg PO DAILY 08/18/24 10/05/24 hydroxyzine pamoate 100 mg capsule 100 mg PO TID 08/19/24 10/05/24 Allergies Allergy/AdvReac Type Severity Reaction Status Date / Time glimepiride Allergy Mild Verified 09/08/24 13:13 pantoprazole (From Protonix) Allergy Verified 09/08/24 13:13 Worker's Comp Is this a Worker's Comp case?: No [facility] Disclaimer: The information contained in this section may have been updated after the patient was seen, as this information can be updated by other users. Medical History Diarrhea Nausea Left flank pain Abdominal pain, LUQ Acute viral pharyngitis Influenza A Headache Atypical chest pain Vaginal discharge Sore throat (viral) ADHD GERD (gastroesophageal reflux disease) Abnormal Pap smear of cervix History of pre-eclampsia History of gestational diabetes Anxiety Insomnia Scoliosis DDD (degenerative disc disease) Post traumatic stress disorder Established with [place] Major depression Surgical History History of eye surgery History of appendectomy History of section Family History Other Anemia Asthma Cancer Diabetes FHx: mental illness Hyperlipidemia Hypertension Thyroid disorder Social History (Updated 09/08/24 @ 14:05 by Natty Fernandez APRN) Smoking Status: Current every day smoker tobacco type: cigarettes alcohol intake: never substance use type: marijuana current occupational status: unemployed Travel in the last 8 weeks: None Have you lived/traveled outside US in past 30 days?: No Contact w/someone who lives/traveled outside US past 30 days?: No Exposure to someone with infectious disease in past 14 days?: No Do you have a fever (greater than 100.4 F or 38 C)?: No Have you tested positive for COVID-19: No Exposed to someone with COVID-19 in past 14 days?: No Do you have a sore throat?: Yes Do you have a cough?: No Do you have any weakness?: No Do you have any diarrhea?: No Are you experiencing any unusual bleeding?: No Do you have any muscle aches/pain?: No Do you have any abdominal pain?: No Are you experiencing loss of taste or smell?: No ROS Obtained: Yes All systems reviewed & no additional complaints except as documented and Yes Systems reviewed as appropriate & no additional complaints except as documented Constitutional Constitutional: Reports system reviewed and no additional complaints, except as documented, Reports as per HPI and Reports headache(s) ENT Ears, Nose, Mouth, and Throat: Reports system reviewed and no additional complaints, except as documented, Reports as per HPI, Reports headache(s), Reports nasal congestion, Reports nasal discharge and Reports sore throat Cardiovascular Cardiovascular: Reports system reviewed and no additional complaints, except as documented and Reports as per HPI Respiratory Respiratory: Reports system reviewed and no additional complaints, except as documented and Reports as per HPI Gastrointestinal Gastrointestingal: Reports system reviewed and no additional complaints, except as documented and as per HPI Neurologic Neurologic: Reports headache(s) Physical Exam General General appearance: alert and in no apparent distress ENT ENT exam: Present mucous membranes moist and TM's normal bilaterally Expanded ENT Exam Nose exam: Absent sinus tenderness Throat exam: Present tonsillar erythema Respiratory Respiratory exam: Present normal lung sounds bilaterally; Absent respiratory distress or wheezes Cardiovascular Cardiovascular exam: Present regular rate, normal rhythm and normal heart sounds Abdominal Exam Abdominal exam: Present soft and normal bowel sounds; Absent distention or tenderness Neurological Exam Neurological exam: Present alert, oriented X3 and normal gait Medical Decision Making Medical Records Screening: Per USPSTF and CDC recommendations, given the prevalence of disease in our region, it is our hospital?s policy to screen for HIV and viral Hepatitis for all patients aged 18 and over and those with ongoing risk factors. Eric Inquiry Pt receiving controlled substance: No Eric was queried for this patient: No Vital Signs: 10/05/24 09:00 Temperature 98.3 F Temperature Source Oral Pulse Rate [Left Brachial] 76 Respiratory Rate 17 Blood Pressure [Left Arm] 131/88 Blood Pressure Mean [Left Arm] 102 Blood Pressure Source [Left Arm] Automatic Cuff Blood Pressure Position [Left Arm] Sitting 02 Sat by Pulse Oximetry 99 Oxygen Delivery Method Room Air Lab Data Lab results reviewed: Yes I reviewed the patient's lab results. Lab Results 10/05/24 08:37: Strep Scn Rapid Clinic Positive A
[2024-10-05] MEDS: PENICILLIN G BENZATHINE 1,200,000 UNITS/2ML SYRINGE 1200000 UNIT IM (09:22)
[2024-10-05 09:40] VITALS: BP 131/88; PULSE 76; RESP 17; TEMP 36.8; O2SAT 99
== END 2024-10-05 09:42 | disposition home or self-care (01) ==
PROVIDERS: Emergency Provider Nurse Practitioner; PCP Nurse Practitioner Family
DX: J02.0 Streptococcal pharyngitis (principal)
CPT/HCPCS: 87880; 96372; 99213; G0381; J0561

== ENCOUNTER 2024-11-13 07:07 | Day surgery (SDC) | payer MEDICAID, SELFPAY ==
[2024-11-11 16:13] VITALS: BMI 37.4
[2024-11-13 07:52] VITALS: BP 121/67; PULSE 67; RESP 16; TEMP 36.3; O2SAT 97
[2024-11-13] MEDS: LACTATED RINGERS 1000ML 1,000 ML 50 ML IV (07:52)
[2024-11-13 08:00] LABS: Urine Pregnancy, HCG Qual. Negative (Negative)
--- NOTE | 2024-11-13 08:21 | P.PNANES_ITS ---
[facility] Disclaimer: The information contained in this section may have been updated after the patient was seen, as this information can be updated by other users. Medical History Diarrhea Nausea Left flank pain Abdominal pain, LUQ Acute viral pharyngitis Influenza A Headache Atypical chest pain Vaginal discharge Sore throat (viral) ADHD GERD (gastroesophageal reflux disease) Abnormal Pap smear of cervix History of pre-eclampsia History of gestational diabetes Anxiety Insomnia Scoliosis DDD (degenerative disc disease) Post traumatic stress disorder Established with Nuvista Major depression Surgical History History of eye surgery History of appendectomy History of section Family History Other Anemia Asthma Cancer Coronary arteries, normal Diabetes FHx: mental illness Hyperlipidemia Hypertension Thyroid disorder Social History Smoking Status: Never smoker alcohol intake: never substance use type: marijuana current occupational status: unemployed Travel in the last 8 weeks: None Have you lived/traveled outside US in past 30 days?: No Contact w/someone who lives/traveled outside US past 30 days?: No Exposure to someone with infectious disease in past 14 days?: No Do you have a fever (greater than 100.4 F or 38 C)?: No Have you tested positive for COVID-19: No Exposed to someone with COVID-19 in past 14 days?: No Do you have a sore throat?: No Do you have a cough?: No Do you have any weakness?: No Do you have any diarrhea?: No Are you experiencing any unusual bleeding?: No Do you have any muscle aches/pain?: No Do you have any abdominal pain?: No Are you experiencing loss of taste or smell?: No [facility] Anesthesia Checklist Patient Identification Patient Identification: Verbal (Name & ) Structural Data Admitted From: Home Planned Operative Procedure/s: egd Consent for Planned Operative Procedure(s) Verified: Yes NPO Status Verified Time NPO: 00:00 Additional verifications Anesthesia Reactions: No Hx Blood Transfusions: No Blood Transfusion Reaction: No Airway Assessment Mallampati Score:: Class II C-Spine Mobility Assessed: Yes TMJ Mobility Assessed: Yes Dentition: Good Dentition Neurological Assessment Level of Consciousness: Awake, Alert and Appropriate Anesthesia Plan Anesthesia Risk discussed: Yes Anesthesia Plan: Verified ASA Class: II Anesthesia Type: MAC
--- NOTE | 2024-11-13 08:43 | EXP.HP ---
History of Present Illness *Admission Date: 11/13/24 *Reason for visit:: Reflux/heartburn and dysphagia with globus sensation *History of present illness: Ms. Ganhdi is a 24-year-old female who is here for heartburn/reflux with dysphagia and globus sensation. The examination is deemed medically necessary for diagnostic EGD. The patient has been seen, interviewed and examined prior to the procedure by both myself and the anesthesia provider. [facility] Disclaimer: The information contained in this section may have been updated after the patient was seen, as this information can be updated by other users. Medical History Diarrhea Nausea Left flank pain Abdominal pain, LUQ Acute viral pharyngitis Influenza A Headache Atypical chest pain Vaginal discharge Sore throat (viral) ADHD GERD (gastroesophageal reflux disease) Abnormal Pap smear of cervix History of pre-eclampsia History of gestational diabetes Anxiety Insomnia Scoliosis DDD (degenerative disc disease) Post traumatic stress disorder Established with Nuvista Major depression Surgical History History of eye surgery History of appendectomy History of section Family History Other Anemia Asthma Cancer Coronary arteries, normal Diabetes FHx: mental illness Hyperlipidemia Hypertension Thyroid disorder Social History Smoking Status: Never smoker alcohol intake: never substance use type: marijuana current occupational status: unemployed Travel in the last 8 weeks: None Have you lived/traveled outside US in past 30 days?: No Contact w/someone who lives/traveled outside US past 30 days?: No Exposure to someone with infectious disease in past 14 days?: No Do you have a fever (greater than 100.4 F or 38 C)?: No Have you tested positive for COVID-19: No Exposed to someone with COVID-19 in past 14 days?: No Do you have a sore throat?: No Do you have a cough?: No Do you have any weakness?: No Do you have any diarrhea?: No Are you experiencing any unusual bleeding?: No Do you have any muscle aches/pain?: No Do you have any abdominal pain?: No Are you experiencing loss of taste or smell?: No Other Medical History Have you received the Flu Vaccine for this season: No Have you received the Pneumonia Vaccine: No Review of Systems Review of Systems Review of systems (narrative): Negative *Cardiovascular Comments: Negative *Gastrointestinal Comments: Negative *Genitourinary Comments: Negative *Musculoskeletal Comments: Negative *Neurologic Comments: Negative Meds Home Medications and Allergies Home Medications ?Medication ?Instructions ?Recorded ?Confirmed ?Type aripiprazole 5 mg tablet 5 mg PO DAILY 05/02/24 11/13/24 History cyclobenzaprine 10 mg tablet 10 mg PO HS 08/18/24 11/13/24 History famotidine 20 mg tablet 20 mg PO DAILY 08/18/24 11/13/24 History hydroxyzine pamoate 100 mg capsule 100 mg PO TID 08/19/24 11/13/24 History New Prescriptions to Start Prescriptions: Allergies Allergy/AdvReac Type Severity Reaction Status Date / Time glimepiride Allergy Mild Rash Verified 11/13/24 07:51 pantoprazole (From Protonix) Allergy Difficulty Verified 11/13/24 07:51 Swallowing Exam Data for Last 24 hours Vital signs and Labs for Last 24 Hours: Temp Pulse Resp BP Pulse Ox O2 Del Method 97.3 F L 67 16 121/67 97 Room Air 11/13/24 07:52 11/13/24 07:52 11/13/24 07:52 11/13/24 07:52 11/13/24 07:52 11/13/24 07:52 Laboratory Results - last 24 hr 11/13/24 07:44: Urine HCG, Qual Negative I & O for Last 24 hours: Intake & Output 11/10/24 11/11/24 11/12/24 11/13/24 23:59 23:59 23:59 23:59 Weight 198 lb *Routine HEENT Exam Head: Present normocephalic Eye: Present EOMI and PERRL ENT: Present mucous membranes moist *Routine Neck Exam Neck: Present supple *Routine Respiratory Exam Respiratory: Present CTA bilaterally *Routine Cardiovascular Exam Cardiovascular: Present RRR *Routine Abdominal Exam Abdominal: Present soft and normoactive bowel sounds; Absent tenderness *Routine Rectal Exam Rectal:: deferred *Routine Genitalia Exam Genitalia:: deferred *Routine Extremities Exam Extremities: Absent cyanosis, clubbing or edema *Routine Skin Exam Skin: Present warm; Absent rash *Routine Neurological Exam Neurological: Present alert and oriented X3 Assessment and Plan *Assessment and plan (1) GERD (gastroesophageal reflux disease): Status: Acute Category: Medical Code(s): K21.9 - Gastro-esophageal reflux disease without esophagitis (2) Heartburn: Status: Acute Category: Medical Code(s): R12 - Heartburn (3) Dysphagia: Status: Acute Category: Medical Code(s): R13.10 - Dysphagia, unspecified (4) Globus sensation: Status: Acute Category: Medical Code(s): R09.A2 - Foreign body sensation, throat Plan A/P: 1. Heartburn/reflux with dysphagia and globus sensation is the preprocedural diagnosis. The patient will be anesthetized/sedated using MAC sedation. The patient has been seen and examined. Cardiac and lung assessment prior to the examination is stable. Proceed with planned upper endoscopy
--- NOTE | 2024-11-13 08:45 | HMH.PROCNOTE ---
[facility] Procedure Note Date: 11/13/24 Time: 09:03 Procedure Note:: Upper Endoscopy Procedure Report: Esophagogastroduodenoscopy with cold biopsies and TTS balloon dilation Endoscopost: Forest Romero II, MD Referring Physician: RILEY Wilkes Date of Procedure: November 13, 2024 Equipment: Olympus GIF 190 standard upper endoscope Sedation: MAC sedation Indications: Ms. Gandhi is a 24-year-old female with dysphagia and globus sensation. She does get some choking. She tried Protonix but this led to tongue swelling and now she is on famotidine. She feels as if food gets harder to swallow with her meal. She is getting breakthrough heartburn and reflux. She does have functional dyspepsia with epigastric abdominal discomfort, bloating, belching, early satiety and occasional nausea. The patient also reports irregular bowel function with alternating mixed IBS with some diarrhea predominance. She does report incomplete defecation with longer periods of time on the commode and some bowel frequency. This is her first upper endoscopy. . Procedure: Prior to the procedure, a history and physical exam was performed, and patient's medications and allergies were reviewed. The risks, benefits and alternatives of the sedation and procedure were discussed with the patient. All questions were answered and informed consent was obtained. The patient was brought to the procedure room. Patient identification and proposed procedure were verified by the physician and the nurse. The patient was placed in a left lateral decubitus position and the scope was passed under direct vision. Throughout the procedure, the patient's blood pressure, pulse, and oxygen saturations were monitored continuously. The upper GI endoscopy was accomplished without difficulty. The patient tolerated the procedure well. Findings: The scope was passed directly into the upper esophagus and advanced to the third portion of the duodenum. The post bulbar duodenum and duodenal bulb were normal with normal mucosa and conniventes. Biopsies were taken from the first portion of the duodenum and duodenal bulb to rule out celiac disease. There was no scalloping. The scope was withdrawn through a normal duodenal bulb and pylorus into the stomach. There was bile reflux with very mild linear reactive gastropathy of the antrum. The body and fundus of the stomach were grossly normal. Biopsies were taken from the antrum. Upon retroflexion there was a very small sliding 1 to 2 cm hiatal hernia.. The scope was then withdrawn into the esophagus. There was no evidence of reflux esophagitis or Red's. There was no Schatzki's ring, corrugation or furrowing. There was no proximal esophageal inlet patch. There were strong tertiary contractions and evidence of moderate esophageal dysmotility. The entire esophagus was dilated to 60 Lithuanian/20 mm with a TTS hydrostatic balloon. There was some resistance at the cricopharyngeus/cricopharyngeal spasm. The remainder of the esophageal mucosa was normal. Impression: 1. Cricopharyngeal spasm status post dilation to 20 mm 2. Nonerosive GERD with moderate esophageal dysmotility and small 1 to 2 cm sliding hiatal hernia 3. Bile reflux with mild linear reactive gastropathy of prepyloric antrum Plan: I will follow-up the biopsies. 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 Most of her symptoms of dyspepsia, reflux and globus are related to and driven by lower intestinal gas pressure gradients/high gas pressure buildup resulting in backflow of bile and peptic fluid from the duodenum into the stomach (duodenal reflux). This gas production (carbon dioxide, hydrogen, methane, etc.) from the lower intestinal tract is the byproduct of colonic bacterial fermentation. This colonic fermentation occurs when there is more carbohydrate (dietary starches, sugars and high residue plant fiber) substrate that does not get digested (in the middle or small intestine) or occurs when there is colonic fecal buildup and colonic bacterial overgrowth. This indeed leads to bloating and the gas pressure buildup with gas pressure gradients that do drive backflow and dyspepsia. We will discuss treatment options.
[2024-11-13 08:48] VITALS: O2SAT 100
[2024-11-13 09:04] VITALS: BP 90/50; PULSE 68; RESP 16; TEMP 36.2; O2SAT 96
[2024-11-13 09:14] VITALS: BP 107/54; PULSE 70; RESP 16; O2SAT 97
[2024-11-13 09:24] VITALS: BP 101/60; PULSE 74; RESP 16; O2SAT 96
[2024-11-13 09:34] VITALS: BP 110/74; PULSE 70; RESP 16; TEMP 36.2; O2SAT 97
== END 2024-11-13 09:54 | disposition home or self-care (01) ==
PROVIDERS: PCP Nurse Practitioner Family; Visit Provider Internal Medicine Gastroenterology
PROC: 0DJ08ZZ Inspection of Upper Intestinal Tract, Via Natural or Artificial Opening Endoscopic (ICD-10-PCS; CPT 43239; principal; 2024-11-13 08:30)
DX: K21.9 Gastro-esophageal reflux disease without esophagitis (principal); R12 Heartburn; R13.10 Dysphagia, unspecified; R09.A2 Foreign body sensation, throat; J39.2 Other diseases of pharynx; K22.4 Dyskinesia of esophagus; K44.9 Diaphragmatic hernia without obstruction or gangrene; K31.9 Disease of stomach and duodenum, unspecified
CPT/HCPCS: 43239; 43249; 81025; C1726; J7120

== ENCOUNTER 2024-11-20 16:55 | Outpatient (CLI) | payer MEDICAID, SELFPAY ==
[2024-11-23 08:07] LABS: Neisseria gonorrhoeae, NAA Negative (Negative)
== END 2024-11-20 23:59 | disposition home or self-care (01) ==
LOC: LAB.DROPOF 16:55
PROVIDERS: PCP Obstetrics & Gynecology; Visit Provider Obstetrics & Gynecology
DX: N89.8 Other specified noninflammatory disorders of vagina (principal)
CPT/HCPCS: 87491; 87591

== ENCOUNTER 2024-12-09 10:23 | Outpatient (CLI) | payer MEDICAID, SELFPAY ==
[2024-12-10 10:24] LABS: FSH 8.4 mIU/mL (.); LH 7.8 mIU/mL (.); Progesterone 0.2 ng/mL (.)
[2024-12-12 02:08] LABS: Anti Mullerian Hormone (AMH) 5.75 ng/mL (.)
== END 2024-12-09 23:59 | disposition home or self-care (01) ==
LOC: LAB 10:24
PROVIDERS: Obstetrics & Gynecology; PCP Nurse Practitioner Family; Visit Provider Obstetrics & Gynecology
DX: Z31.69 Encounter for other general counseling and advice on procreation (principal); N96 Recurrent pregnancy loss
CPT/HCPCS: 36415; 82397; 83001; 83002; 84144

== ENCOUNTER 2024-12-30 12:24 | Outpatient (CLI) | payer MEDICAID, SELFPAY | END 2024-12-30 23:59 | disposition home or self-care (01) | LOC: LAB.DROPOF 12-31 09:50 | PROVIDERS: PCP Student in an Organized Health Care Education/Training Program; Visit Provider Student in an Organized Health Care Education/Training Program | DX: R30.0 Dysuria (principal) | CPT/HCPCS: 87086 ==

== ENCOUNTER 2024-12-30 17:50 | Emergency (ER) | payer MEDICAID, SELFPAY ==
--- NOTE | 2024-12-30 18:22 | ED_ITS ---
<Statement entered by Tanesha Clay DO - 12/30/24 23:39> I was consulted by the JELANI, and we discussed the complexity of the problems being addressed. I approved the treatment and management plan for this patient's care in the emergency department, thus performing a substantive portion of the medical decision making. Tanesha Clay DO Discharge Plan Disposition Patient Disposition: Home, Self-Care Condition: Good Prescriptions Prescriptions: No Action aripiprazole 5 mg tablet 5 mg PO DAILY famotidine 20 mg tablet 20 mg PO DAILY cyclobenzaprine 10 mg tablet 10 mg PO HS hydroxyzine pamoate 100 mg capsule 100 mg PO TID Referrals Follow up/Referrals: Massiel Hardin APRN [Primary Care Provider] - See instructions Activity Restrictions/Add. Instructions Additional Instructions/Restrictions: As we discussed I recommend compression stockings to above the knee. I recommended Tylenol alternating every 4 hours with ibuprofen for symptomatic discomfort. If you have continued symptoms you may benefit from a vascular surgery evaluation for varicose vein ablation. Please contact your PCP for referral. If you have any worsening signs or symptoms return to the ER as needed. Clinical Impressions Clinical Impression: Varicose veins of right lower extremity Qualifiers: Varicose vein complication: pain Qualified Code(s): I83.811 - Varicose veins of right lower extremity with pain Print Language Print Language: Ugandan Discharge ED Provider: Tanesha Clay General Adult HPI General Chief complaint: Extremity Injury, Lower Stated complaint: sent by [facility]-poss blood clot in RT leg Time Seen by Provider: 12/30/24 18:22 History of Present Illness HPI narrative: Patient presents for evaluation of right lower extremity pain. Patient has pain in her distal anterior right lower extremity. Patient states it is worse when she is standing for long period of time however goes away at nighttime. She has a known area of varicose veins . She was evaluated at the [facility] today and they were concerned that she had decreased blood flow and may have a possible DVT hence sent to the ER for evaluation. Patient has no posterior calf tenderness no erythema swelling edema chest pain shortness of breath fever chills hemoptysis hematochezia melena nausea vomit diarrhea. Related Data Home Medications ?Medication ?Instructions ?Recorded ?Confirmed aripiprazole 5 mg tablet 5 mg PO DAILY 05/02/24 12/30/24 cyclobenzaprine 10 mg tablet 10 mg PO HS 08/18/24 12/30/24 famotidine 20 mg tablet 20 mg PO DAILY 08/18/24 12/30/24 hydroxyzine pamoate 100 mg capsule 100 mg PO TID 08/19/24 12/30/24 Allergies Allergy/AdvReac Type Severity Reaction Status Date / Time glimepiride Allergy Mild Rash Verified 12/30/24 12:19 pantoprazole (From Protonix) Allergy Difficulty Verified 12/30/24 12:19 Swallowing [facility] Disclaimer: The information contained in this section may have been updated after the patient was seen, as this information can be updated by other users. Medical History Diarrhea Nausea Left flank pain Abdominal pain, LUQ Acute viral pharyngitis Influenza A Headache Atypical chest pain Vaginal discharge Sore throat (viral) ADHD GERD (gastroesophageal reflux disease) Abnormal Pap smear of cervix History of pre-eclampsia History of gestational diabetes Anxiety Insomnia Scoliosis DDD (degenerative disc disease) Post traumatic stress disorder Established with Nuvista Major depression Surgical History History of eye surgery History of appendectomy History of section Family History Other Anemia Asthma Cancer Coronary arteries, normal Diabetes FHx: mental illness Hyperlipidemia Hypertension Thyroid disorder Social History Smoking Status: Current every day smoker tobacco type: cigarettes alcohol intake: never substance use type: marijuana current occupational status: unemployed Travel in the last 8 weeks: None Have you lived/traveled outside US in past 30 days?: No Contact w/someone who lives/traveled outside US past 30 days?: No Exposure to someone with infectious disease in past 14 days?: No Do you have a fever (greater than 100.4 F or 38 C)?: No Have you tested positive for COVID-19: No Exposed to someone with COVID-19 in past 14 days?: No Do you have a sore throat?: No Do you have a cough?: No Do you have any weakness?: No Do you have any diarrhea?: No Are you experiencing any unusual bleeding?: No Do you have any muscle aches/pain?: No Do you have any abdominal pain?: No Are you experiencing loss of taste or smell?: No Other Medical History Have you received the Flu Vaccine for this season: No Have you received the Pneumonia Vaccine: No ROS Obtained: Yes Systems reviewed as appropriate & no additional complaints except as documented Physical Exam General General appearance: alert and in no apparent distress Respiratory Respiratory exam: Present normal lung sounds bilaterally Cardiovascular Cardiovascular exam: Present regular rate Neurological Exam Neurological exam: Present alert and oriented X3 Medical Decision Making Medical Records Medical records reviewed: Yes I reviewed the patient's medical records. Screening: Per USPSTF and CDC recommendations, given the prevalence of disease in our region, it is our hospital?s policy to screen for HIV and viral Hepatitis for all patients aged 18 and over and those with ongoing risk factors. Eric Inquiry Pt receiving controlled substance: No Vital Signs: 12/30/24 18:31 12/30/24 20:00 12/30/24 20:30 Temperature 97.7 F Temperature Source Oral Pulse Rate 66 65 Pulse Rate [Radial] 86 Respiratory Rate 16 Blood Pressure 109/78 L 108/77 L Blood Pressure [Right Arm] 125/73 Blood Pressure Mean [Right Arm] 90 Blood Pressure Source [Right Arm] Automatic Cuff Blood Pressure Position [Right Arm] Sitting 02 Sat by Pulse Oximetry 99 98 100 Oxygen Delivery Method Room Air Lab Data Lab results reviewed: Yes I reviewed the patient's lab results. Lab Results 12/30/24 19:49: WBC 9.6, RBC 5.31, Hgb 14.9, Hct 43.5, MCV 81.9, MCH 28.1, MCHC 34.3, RDW 12.0, Plt Count 311, MPV 10.2, Neut % (Auto) 50.7, Lymph % (Auto) 40.1, Casey % (Auto) 7.8, Eos % (Auto) 0.6, Baso % (Auto) 0.6, Neut # (Auto) 4.9, Lymph # (Auto) 3.9, Casey # (Auto) 0.8, Eos # (Auto) 0.1, Baso # (Auto) 0.1, PT 10.3, INR 0.91, D-Dimer 0.48, Sodium 136, Potassium 3.9, Chloride 104, Carbon Dioxide 26, Anion Gap 9.9, BUN 4 L, Creatinine 0.80, Estimated Creat Clear 153, Estimated GFR 87, Est GFR ( Amer) 105, Glucose 90, Calcium 9.7 12/30/24 19:49 12/30/24 19:49 Orders (Tests/Meds): ORDERS Category Date Time Status BMP [Basic Metabolic Panel] Stat Lab 12/30/24 19:49 Completed CBC w/Auto Diff [Complete Blood Count Auto Diff] Stat Lab 12/30/24 19:49 Completed D-Dimer Stat Lab 12/30/24 19:49 Completed INR [Prothrombin Time INR] Stat Lab 12/30/24 19:49 Completed Medical Decision Narrative: In summary patient is a 24-year-old female who presents to the emergency department for evaluation of right lower extremity pain. Patient is hemodynamically stable upon arrival, afebrile. Physical exam is remarkable for a venous complex in the medial anterior distal right lower extremity however not currently swollen erythematous edematous no ecchymosis no trauma. Patient has no posterior calf tenderness. She has negative Homans' sign. Patient has strong DP and PT pulses that were marked by an ink pen by myself. Patient is neurovascular intact distally.. Differential diagnosis includes varicose vein versus possible superficial venous thrombosis although less likely etc. initial workup will be conducted with hematologic including D-dimer. Initial interventions include Tylenol and ibuprofen. Initial workup reviewed by al hematologic labs nonactionable D-dimer is undetectable. Upon repeat evaluation patient reported moderate improvement in her discomfort after Tylenol and ibuprofen. Given this patient is appropriate for discharge with close follow-up with her PCP and recommendations that if she remains symptomatic to ask for referral to vascular surgery for varicose vein ablation evaluation. She is advised to continue wearing compression stocking and take Tylenol/ibuprofen for symptoms. Critical Care Critical Care Time Critical Care Time: No
[2024-12-30 18:31] VITALS: BP 125/73; PULSE 86; RESP 16; TEMP 36.5; O2SAT 99; BMI 37.8
[2024-12-30 20:00] VITALS: BP 109/78; PULSE 66; O2SAT 98
[2024-12-30 20:01] LABS: Basophils # 0.1 K/mm3 (0-0.2); Basophils % 0.6 % (0.1-2.0); Eosinophils # 0.1 K/mm3 (0.0-0.4); Eosinophils % 0.6 % (0.1-12.0); Hematocrit 43.5 % (37.0-47.0); Hemoglobin 14.9 g/dL (12.2-16.2); Lymphocytes # 3.9 K/mm3 (0.7-4.5); Lymphocytes % 40.1 % (10-50); Mean Corpuscular HGB Conc 34.3 g/dL (31.8-35.4); Mean Corpuscular Hemoglobin 28.1 pg (27.0-31.2); Mean Corpuscular Volume 81.9 fl (81-99); Mean Platelet Volume 10.2 fl (7.4-10.4); Monocytes # 0.8 K/mm3 (0.1-1.0); Monocytes % 7.8 % (1.7-9.3); Neutrophils # 4.9 K/mm3 (1.8-7.8); Neutrophils % 50.7 % (37.0-80.0); Platelet Count 311 K/mm3 (142-424); Red Blood Count 5.31 M/mm3 (4.20-5.40); White Blood Count 9.6 K/mm3 (4.8-10.8)
[2024-12-30 20:13] LABS: INR 0.91 (0.9-1.1); Prothrombin Time 10.3 seconds (10.1-12.5)
[2024-12-30 20:17] LABS: Chloride 104 mmol/L (98-107); Potassium 3.9 mmoL/L (3.5-5.1); Sodium 136 mmol/L (136-145)
[2024-12-30 20:20] LABS: Anion Gap 9.9 mEq/L (5-15); Blood Urea Nitrogen 4 mg/dl (7-17); Carbon Dioxide 26 mmol/L (22.0-30.0); Creatinine Clearance Estimated 153 mL/min (50-200); Estimated Glomerular Filt Rate 87 ml/min (>60); GFR (African American) 105 ML/MIN (>60)
[2024-12-30 20:21] LABS: Calcium 9.7 mg/dl (8.4-10.2); Glucose 90 mg/dl (74-100)
[2024-12-30 20:30] VITALS: BP 108/77; PULSE 65; O2SAT 100
[2024-12-30 20:54] LABS: D-Dimer 0.48 ug/mL (0.0-0.5)
[2024-12-30 21:16] VITALS: BP 125/79; PULSE 67; RESP 14; TEMP 36.6; O2SAT 97
== END 2024-12-30 21:17 | disposition home or self-care (01) ==
PROVIDERS: Physician Assistant; Emergency Provider Emergency Medicine; PCP Nurse Practitioner Family
DX: I83.811 Varicose veins of right lower extremity with pain (principal); M79.661 Pain in right lower leg; F17.210 Nicotine dependence, cigarettes, uncomplicated
CPT/HCPCS: 80048; 85025; 85378; 85610; 99283

== ENCOUNTER 2025-01-07 14:00 | Outpatient (CLI) | payer MEDICAID, SELFPAY ==
[2025-01-08 08:21] LABS: FSH 9.4 mIU/mL (.); LH 8.7 mIU/mL (.); Progesterone 0.3 ng/mL (.)
== END 2025-01-07 23:59 | disposition home or self-care (01) ==
LOC: LAB 14:01
PROVIDERS: PCP Nurse Practitioner Family; Visit Provider Obstetrics & Gynecology
DX: N97.9 Female infertility, unspecified (principal)
CPT/HCPCS: 36415; 83001; 83002; 84144

== ENCOUNTER 2025-01-12 08:03 | Outpatient (CLI) | payer MEDICAID, SELFPAY ==
--- NOTE | 2025-01-12 08:00 | FL_ITS ---
FINAL REPORT CLINICAL HISTORY: infertility 341.35 dap 0.40 fluoro time FINDINGS: FLUOROSCOPY LESS THAN 1 HOUR HISTORY: Fluoroscopy guidance. FINDINGS: Fluoroscopic guidance was provided for hysterosalpingogram. Four spot films were obtained. A total of 0.40 minutes of fluoroscopy time were used. DAP: 341.35 mGy IMPRESSION: As above. Reviewed, Interpreted and Dictated by Rich Caruso MD Transcribed by Rebecca Mendoza Authenticated and [facility]
[2025-01-12] MEDS: IOPAMIDOL-300 (61%) 100ML VIAL 100 ML IV (08:53)
--- NOTE | 2025-01-12 11:06 | P.PCN_ITS ---
[facility] Procedure Note Date: 01/12/25 Time: 08:15 Procedure Note:: Findings: bilateral patent fallopian tubes without hydrosalpinx. No endometrial filling defects noted. Patient was positioned in the dorsal lithotomy position. Speculum was inserted. Cervix and vagina was cleansed with Hibiclens. Tenaculum was placed on anterior lip of the cervix. 20 cc of contrast was drawn up into a syringe and attached to the Tyshawn HSG cannula. Contrast was flushed through cannula to remove air bubbles and ensure patency. Cannula was then inserted into the cervix. Fluoroscopy was initiated with 10 cc of contrast injected into the endometrial cavity. Fluoroscopy demonstrated contrast flowing from endometrial cavity through bilateral fallopian tubes revealing patent bilateral fallopian tubes. The right fallopian tube was immediately patent and the left was shortly after. Cavity appeared normal shape. Cannula was removed from the cervix. Tenaculum was removed from the cervix. Hemostasis was noted. Speculum removed from the vagina. Patient tolerated the procedure well.
== END 2025-01-12 23:59 | disposition home or self-care (01) ==
LOC: RAD 08:04
PROVIDERS: PCP Nurse Practitioner Family; Visit Provider Obstetrics & Gynecology
DX: N97.9 Female infertility, unspecified (principal)
CPT/HCPCS: 74740; Q9967

== ENCOUNTER 2025-06-26 21:31 | Emergency (ER) | payer MEDICAID, SELFPAY ==
--- OUTSIDE RECORDS SUMMARY | 2024-05-17 05:00 | XMS_ITS ---
Author Organization [facility] Address [address] [place] [address] Care Team Providers Care Ferry Captain Name Role Phone Migration, Provider Unavailable Unavailable Allergies Allergen (clinical drug ingredient) Drug/Non Drug Allergy documented on EMR Reaction Allergy Type Onset Date Status Medications: NO KNOWN DRUG ALLERGIES (uncoded) Unspecified Allergy Active Medications Medication SIG (Take, Route, Fr equency, Duration) Notes Start Date End Date Status Promethazine HCl 1 tablet oral Q4H 04/28/2020 Active Social History Social History Drugs/Alcohol: Social Info Question Answer Notes Alcohol Screen Did you have a drink containing alcohol in the past year? Never Household: Social Info Question Answer Notes Household Marital status: Additional Details Category Social Info Options Details Miscellaneous: Exercise: Minimal Amoun t of Exercise (Once weekly or less) Travel outside of the [place]: Travel History: Uses seat belts Encounters Encounter Location Date Provider Diagnosis [facility] [address] [place] [address] 05/17/2024 Provider Migration Plan Of Treatment No Information Progress Notes * Danna LANDRUM EDOB: 8 (24 yo F)Acc No.[id number]:05/17/2024 Patient: Arielle Danna LEVIN :2000 A ge:23 Y S ex:Female Address:[address] [place] [id number] Subjective: * Chief Complaints: * Medical History: 7 [place]: Self breast exam - No 7 [place]: Sexually active - Yes 7 [place]: Dairy Product Use - Yes *NO SIGNIFICANT GENETIC HISTORY Anxiety GERD * Labor Crew Supervisor History: M enstrual History: L MP: 0 02/16/2020. * OB History: P regnancy History (GPA) T otal Pregnancies 5 , F ull Term 0 , P remature?1, A B. Induced 0 , A B. Spontaneous 3 , E ctopics 0 , M ultiple Births 0 , L iving 1 . G P G ravida: 5 , P stephan: 1 . * Surgical History: section * Family History: F amily History Verified.. *No known family medical history. * Social History: D rugs/Alcohol: A lcohol Screen D id you have a drink containing alcohol in the past year? N ever.? M iscellaneous: E xercise: Minimal Amount of Exercise (Once weekly or less). Travel outside of the [place]: Travel History: Uses seat belts. H ousehold: H oucholo M arital status: . * Medications: T akingPromethazine HCl 1 tablet oral Q4H Taking Promethazine HCl 1 tablet oral Q4H * Allergies: M edications: NO KNOWN DRUG ALLERGIES: Unspecified - AllergyyesAllergies Verified. * * Date:
--- OUTSIDE RECORDS SUMMARY | 2025-06-26 22:05 | XMS_ITS | Patient Health Record ---
Author Organization [facility] Address [address] [place] [address] Care Team Providers Care Radiation Physicist Name Role Phone Migration, Provider Unavailable Unavailable Allergies Allergen (clinical drug ingredient) Drug/Non Drug Allergy documented on EMR Reaction Allergy Type Onset Date Status Medications: NO KNOWN DRUG ALLERGIES (uncoded) Unspecified Allergy Active Reason For Referral No Information Medications Medication SIG (Take, Route, Fr equency, [...] weekly or less) Travel outside of the [place]: Travel History: Uses seat belts Plan Of Treatment No Information Medical (General) History Medical History History ICD Code 7 [place]: Self breast exam - No 7 [place]: Sexually active - Yes 7 [place]: Dairy Product Use - Yes *NO SIGNIFICANT GENETIC HISTORY Anxiety GERD Surgical History Surgery Date(Month/Year) section
--- OUTSIDE RECORDS SUMMARY | 2025-06-26 22:05 | XMS_ITS | Clinical Summary ---
Author Organization [facility] Address [address] [place] [address] Care Team Providers Care Online Advertising Director Name Role Phone Ayah Springer Michelle GARCIA Primary Care Provider + [phone] Allergies Active Allergy Reactions Criticality Noted Date Comments Glyburide Rash Medium 10/09/2018 Medications ARIPiprazole (Abilify) 5 MG tablet Take 5 mg by mouth 1 (one) time each day. 2 Active ARIPiprazole (Abilify) 5 MG tablet Take 5 mg by mouth 1 (one) time each day. 2 Active cyclobenzaprine (Flexeril) 10 MG tablet Take by mouth 3 times a day. Active hydrOXYzine pamoate (Vistaril) 50 MG capsule TAKE 1 CAPSULE BY MOUTH TWICE DAILY NEEDED FOR ANXIETY 2 Active hydrOXYzine pamoate (Vistaril) 50 MG capsule Take 50 mg by mouth 2 (two) times a day if needed. 2 Active metroNIDAZOLE (Flagyl) 500 MG tablet TAKE 1 TABLET BY MOUTH TWICE DAILY FOR 7 DAYS. DO NOT USE ANY ALCOHOL WHILE TAKING THIS MEDICATION 2 Active traZODone (Desyrel) 100 MG tablet Take 100 mg by mouth every night. 2 Active traZODone (Desyrel) 100 MG tablet Take 1 tablet by mouth every night. 2 Active Active Problems Problem Noted Date Diagnosed Date Breast pain 07/06/2022 Assessment & Plan (07/06/2022 5:20 PM EDT): Dicloxacillin sent today Plan for breast US if not improved in 1 week NSAIDs and warm/cool compresses for pain control Healthcare maintenance 07/06/2022 Assessment & Plan (07/06/2022 5:20 PM EDT): TSH, T3, T4, A1c today for metabolic screening Pap smear up to date per patient report (2020 with no h/o abnormal paps) Need to discuss gardasil History of recurrent miscarriages 07/06/2022 Assessment & Plan (07/06/2022 5:21 PM EDT): All prior to 7 weeks with two separate partners, denies genetic disorders H/o 2 successful pregnancies TVUS from ED visit normal without structural abnormalities Will get metabolic screening today Social History Tobacco Use Types Packs/Day Years Used Date Smoking Tobacco: Every Day Cigarettes 1 4 Smokeless Tobacco: Never Tobacco Cessation:Ready to Q uit: No; Counseling Given: Yes Alcohol Use Standard Drinks/Week Comments Not Currently 0 (1 standard drink = 0.6 oz pur e alcohol) Comments Unknown Sex and Gender Information Value Date Recorded Sex Assigned at Female 07/02/2023 11:48 AM EDT Legal Sex Female 8:02 PM EDT Gender Identity Female 07/02/2023 11:48 AM EDT Sexual Orientation Straight 07/02/2023 11 :48 AM EDT Last Filed Vital Signs Vital Sign Reading Time Taken Comments Blood Pressure 119/74 02/16/2023 6:06 PM EDT Pulse 70 02/16/2023 6:06 PM EDT Temperature 36.7 C (98 F) 02/16/2023 6:06 PM EDT Respiratory Rate 16 02/16/2023 6:06 PM EDT Oxygen Saturation 98% 02/16/2023 6:06 PM EDT Inhaled Oxygen Concentration - - Weight 87.4 kg (192 lb 10.9 oz) 02/16/2023 2:26 PM EDT Height 156.2 cm (5' 1.5 ) 02/16/2023 2:26 PM EDT Body Mass Index 35.82 02/16/2023 2:26 PM EDT Plan of Treatment Health Maintenance Due Date Last Done Comments [facility]-Depression Screening 1998 [facility]-Infant/Child/Adol SDOH Screenings 1998 [facility]-IPV Vaccines (2 of 3 - 4-dose series) 05/30/2004 05/02/2004 [facility]-Varicella Vaccines (1 of 2 - 13+ 2-dose series) 2011 HPV Vaccines (1 - 3-dose series) 2013 [facility]- SDOH Screenings 2016 [facility]-Adult SDOH Screenings 2016 [facility]-Hepatitis B Vaccines (1 of 3 - 19+ 3-dose series) 2017 [facility]-Pap Smear 2019 [id number] Vaccine (1 - season) 2025 [facility]-Influenza Vaccine (#1) 2025 08/09/2019, [facility]-DTaP,Tdap,and Td Vaccines (5 - Td or Tdap) 12/22/2030 12/22/2020, 11/01/2020, 08/15/2018, Additional history exists [facility]-Zoster Vaccines (1 of 2) 2048 [facility]-HIV Screening Completed 07/01/2022 [facility]-Hepatitis C Screening Completed 07/01/2022 [facility]-Obesity Intervention Completed 07/06/2022 [facility]-HIB Vaccines Aged Out No longer e ligible based on patient's age to complete this topic [facility]-Hepatitis A Vaccines Aged Out No longer eligible based on patient's age to complete this topic [facility]-Pneumococcal Vaccine: Pediatrics (0 to 5 Years) and At-Risk Patients (6 to 49 Years) Aged Out No longer eligible based on patient's age to complete this topic [facility]-Rotavirus Vaccines Aged Out No lo nger eligible based on patient's age to complete this topic Procedures Procedure Name Priority Date/Time Associated Diagnosis Comments HEPATITIS C ANTIBODY - ED W/REFLEX TO HCV QUANT PCR STAT 07/01/2022 2:27 PM EDT HIV 1/2 ANTIBODY/ANTIGEN SCREEN WITH REFLEX TO HIV I/II DIFFERENTIATION STAT 07/01/2022 2:27 PM EDT from Last 3 Months or Most Recently Relevant to Health Maintenance Results * HIV 1 & 2 Antibody/Antigen Screen (07/01/2022 2:27 PM EDT) Pathologist [facility] HIV 1 & 2 Antibody/Anti gen Screen Nonreactive Nonreactive 07/01/2022 5:19 PM EDT [facility] Blood Venous blood specimen / Unknown Venipuncture / Unknown 07/01/2022 2:27 PM EDT 07/01/2022 2:30 PM EDT us [facility] BLOOD ORDERABLES Final Resu lt [facility] [address] [place] [address] * Hepatitis C Antibody - ED (07/01/2022 2:27 PM EDT) Pathologist [facility] Hepatitis C Antibody Negative Negative 07/01/2022 5:30 PM EDT [facility] Blood Venous blood specimen / Unknown Venipuncture / Unknown 07/01/2022 2:27 PM EDT 07/01/2022 2:30 PM EDT [facility] BLOOD ORDERABLES Final Resu lt Performing Organization Address City/[facility]/ZIP Co de Phone Number [facility] [address] [place] [address] from Last 3 Months or Most Recently Relevant to Health Maintenance Insurance [facility] MEDICAID [facility] Care Teams Online Advertising Director Relationship Specialty Start Date End Date Ayah Springer APRN [address] [place] [phone] PCP - General 02/16/23
--- OUTSIDE RECORDS SUMMARY | 2025-06-26 22:05 | XMS_ITS | Continuity of Care Document ---
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 Sotelo APRN Exposure to COVID-19 virus (Primary Dx); Fever, unspecified fever cause; Body aches; Anxiety about health; Anxiety and depression; Atypical mole of neck 01/21/2020 Patient Outreach [facility] [address] [place] [address] Jeanna Sena LCSW CM- Telephonic Outreach; Care Management - Chart Review 01/20/2020 Patient Outreach [facility] [address] [place] [address] Jeanna Sena LCSW CM- Telephonic Outreach; Care Management - Chart Review 01/09/2020 Patient Outreach [facility] [address] [facility] [place] [address] Tere Carreon, CORINA Care Management - Chart Review 12/29/2019 Orders Only [facility] [address] [facility] [place] [address] Ayah Springer APRN Acute non-recurrent sinusitis, unspecified location (Primary Dx) 12/18/2019 [facility] Only [facility] [address] [facility] [place] [address] Tana Sotelo APRN Vitamin D insufficiency (Primary Dx) 12/17/2019 3:56 PM EST - 12/17/2019 11:59 PM EST Hospital Encounter [facility] [place] [facility] [address] [facility] [place] [address] Malaise and fatigue; Myofascial pain Discharge Disposition: Home or Self Care 12/17/2019 Travel 12/17/2019 3:00 PM EST Office Visit [facility] [place] [address] [place] [address] Tana Sotelo, LITHOGRAPHIC STRIPPER Anxiety and depression (Primary Dx); Malaise and fatigue; Carpal tunnel syndrome of left wrist; Late period; Myofascial pain 10/29/2019 4:20 PM EST Office Visit [facility] [place] [place] [address] Tana Sotelo, LITHOGRAPHIC STRIPPER Anxiety and depression (Primary Dx); Insomnia, persistent; Chronic bilateral thoracic back pain 10/25/2019 5:15 PM EST Office Visit [facility] Urgent [facility] [place] [place] [phone] 743 Eddi Mckeon MD Acute conjunctivitis of both eyes, unspecified acute conjunctivitis type (Primary Dx) 09/04/2019 4:20 PM EST Office Visit [facility] [place] [place] [address] Tana Sotelo APRN Miscarriage (Primary Dx); Bacterial vaginosis 09/02/2019 Orders Only [facility] [place] [place] [address] Tana Sotelo, LITHOGRAPHIC STRIPPER Positive test (Primary Dx) 09/02/2019 Patient Outreach [address] [address] Anyi Choudhury LPN ED Follow-Up Call 09/02/2019 Travel 09/02/2019 12:16 AM EST - 09/02/2019 2:46 AM EST Emergency [facility] [place] [address] Merari Bustamante MD Miscarriage (Primary Dx); Bacterial vaginosis Discharge Disposition: Home or Self Care 09/01/2019 Travel 08/29/2019 3:22 PM EST - 08/29/2019 11:59 PM EST Hospital Encounter [facility] [address] [address] Positive test Discharge Disposition: Home or Self Care 08/26/2019 Orders Only [facility] [place] [address] [facility] [place] [address] Tana Sotelo APRN Positive test (Primary Dx) 08/26/2019 5:08 PM EST - 08/26/2019 11:59 PM EST Hospital Encounter [facility] [place] [facility] [address] [place] [address] Positive test Discharge Disposition: Home or Self Care 08/26/2019 4:00 PM EST Office Visit [facility] [place] [address] [facility] [place] [address] Tana Sotelo APRN Positive test (Primary Dx); History of miscarriage 08/04/2019 Patient Outreach [facility] [place] [address] [place] [address] Anyi Choudhury LPN ED Follow-Up Call 08/03/2019 3:20 PM EDT - 08/03/2019 7:18 PM EDT Emergency [facility] [address] [place] [address] [place] [address] Grayson Jon MD Spontaneous (Primary Dx); Abdominal pain, unspecified abdominal location Discharge Disposition: Home or Self Care 08/01/2019 2:09 PM EDT - 08/01/2019 11:59 PM EDT Hospital Encounter [facility] [place] [facility] [address] [facility] [place] [address] Spontaneous loss Discharge Disposition: Home or Self Care 07/31/2019 3:00 PM EDT Office Visit [facility] [place] [facility] [address] [facility] [place] [address] Tana Sotelo APRN UTI (urinary tract infection), uncomplicated (Primary Dx); Spontaneous loss 07/30/2019 4:30 PM EDT - 07/30/2019 11:59 PM EDT Hospital Encounter [facility] [address] [place] [address] [place] [phone] Vaginal bleeding in Discharge Disposition: Home or Self Care 07/30/2019 Patient Outreach [facility] [place] [address] [place] [address] Anyi Choudhury LPN ED Follow-Up Call 07/28/2019 4:22 PM EDT - 07/28/2019 7:14 PM EDT Emergency [facility] [place] [address] Silvino Mauricio MD Vaginal bleeding in (Primary Dx) Discharge Disposition: Home or Self Care 07/24/2019 Telephone [facility] [address] [place] [address] Pérez, January, RMA Lab Orders 07/22/2019 Patient Outreach [facility] [place] [place] [address] Rebecca Villanueva LCSW - Telephonic Outreach 07/18/2019 Patient Outreach [facility] [address] [place] [address] Elyssa Gordillo RN Referral 07/18/2019 2:40 PM EDT Office Visit [facility] [place] [address] [place] [address] Tana Sotelo APRN Anxiety and depression (Primary Dx) 06/06/2019 Telephone [facility] [place] [facility] [address] [place] [address] Justin Crooks, DO Other (would like note to be taken off of light duty) 06/04/2019 12:20 PM EDT Office Visit [facility] [place] [facility] [address] [place] [address] Justin Crooks, DO Chronic bilateral thoracic back pain (Primary Dx); Pain in thoracic spine 05/24/2019 3:41 PM EDT - 05/24/2019 5:32 PM EDT Emergency [facility] [address] [place] [address] [place] [address] Harjinder Gonsales MD Upper back strain, initial encounter (Primary Dx) Discharge Disposition: Home or Self Care 12/23/2018 Telephone [facility] [address] [place] [address] Rebecca Nicolas MD Vaginal Bleeding (PPV ) 11/29/2018 2:30 PM EST Visit [facility] Akbar [address] [place] [address] Jovany Jj MD History of severe pre-eclampsia (Primary Dx); History of 11/19/2018 Encounter 11/15/2018 Encounter 11/14/2018 Encounter 11/13/2018 Encounter 11/07/2018 Encounter 11/06/2018 2:00 PM EST Clinical Support [facility] [address] [place] [address] Madison Quintana RMA Blood pressure check (Primary Dx) 10/28/2018 2:10 PM EST Visit [facility] Akbar [address] [place] [address] Antionette Singh DO Family planning (Primary Dx); hypertension; Status post section routine follow-up 10/22/2018 Encounter 10/21/2018 Encounter 10/13/2018 9:27 AM EST - 10/19/2018 1:19 PM EST Hospital Encounter [place] [address] [place] [address] Antionette Singh DO Discharge Disposition: Home or Self Care 10/14/2018 12:02 PM EST - 10/14/2018 2:02 PM EST [facility] [place] [address] Jovany Jj MD PRIMARY SECTION 10/14/2018 10:12 AM EST Anesthesia Event [facility] [place] [address] Bernard De La Garza MD Gabbard, Crystal E, WENDY 10/10/2018 3:36 PM EST - 10/11/2018 12:09 PM EST Hospital Encounter [facility] [place] [address] Antionette Singh, Discharge Disposition: Home or Self Care 10/10/2018 1:55 PM EST - 10/10/2018 3:35 PM EST Hospital Encounter [facility] PERINATOLOGY [facility] [place] [address] Jovany Jj MD Gestational diabetes mellitus (GDM) in third trimester controlled on oral hypoglycemic drug Discharge Disposition: Home or Self Care 10/09/2018 3:20 PM EST ROUTINE FOLLOW UP OB VISIT [facility] [address] [place] [address] Rebecca Nicolas MD Encounter for supervision of normal first in third trimester; Gestational diabetes mellitus (GDM) in third trimester controlled on oral hypoglycemic drug 10/07/2018 3:40 PM EST - 10/07/2018 5:30 PM EST Emergency [facility] [place] [address] Silvano Ray DO Allergic reaction, initial encounter (Primary Dx); Acute frontal sinusitis, recurrence not specified; 32 weeks gestation of Discharge Disposition: Home or Self Care 10/01/2018 2:10 PM EST ROUTINE FOLLOW UP OB VISIT [facility] [address] [place] [address] Jovany Jj MD Encounter for supervision of other normal in third trimester (Primary Dx); Gestational diabetes mellitus (GDM) in third trimester controlled on oral hypoglycemic drug 09/27/2018 Telephone [facility] [place] [address] [address],CDE Other (GDM goal call) 09/26/2018 5:11 PM EST - 09/26/2018 5:50 PM EST Hospital Encounter [facility] [place] [address] Antionette Singh, Discharge Disposition: Home or Self Care 09/20/2018 9:00 AM EST Office Visit [facility] [address] [facility] [address] [place] [address],CDE Diet controlled gestational diabetes mellitus (GDM), antepartum 09/16/2018 Telephone [facility] [address] [facility] [address] [place] [address] Other (GDM Class Info 09/20/18) 09/16/2018 Orders Only [facility] Women[facility] [address] [place] [address] [address] [place] [address] Rebecca Nicolas MD Abnormal glucose affecting (Primary Dx) 09/16/2018 1:10 PM EST ROUTINE FOLLOW UP OB VISIT [facility] Women's [address] [place] [address] Rebecca Nicolas MD Diet controlled gestational diabetes mellitus (GDM), antepartum (Primary Dx); Encounter for supervision of normal first in third trimester 09/13/2018 2:08 PM EST - 09/13/2018 11:59 PM EST Hospital Encounter [facility] PERINATOLOGY [facility] [place] [address] Ana Granda MD Significant discrepancy between uterine size and clinical dates, antepartum Discharge Disposition: Home or Self Care 09/02/2018 Telephone [facility] [address] [place] [address] Ana Granda MD Other 09/02/2018 1:40 PM EST ROUTINE FOLLOW UP OB VISIT [facility] Women's [address] [place] [address] Ana Granda MD Significant discrepancy between uterine size and clinical dates, antepartum (Primary Dx); Encounter for supervision of normal first in third trimester; Diet controlled gestational diabetes mellitus (GDM), antepartum 08/30/2018 Telephone [facility] Women's Health [facility] [address] [place] [address] Ana Granda MD Results; Visit Follow Up 08/23/2018 10:20 AM EST - 08/23/2018 11:59 PM EST Hospital Encounter [facility] [address] [place] [phone] Encounter for supervision of normal first in second trimester Discharge Disposition: Home or Self Care 08/12/2018 6:01 PM EDT - 08/12/2018 7:09 PM EDT Hospital Encounter [facility] [address] [place] [id number] Jovany Jj MD Discharge Disposition: Home or Self Care 08/06/2018 1:40 PM EDT ROUTINE FOLLOW UP OB VISIT [facility] Women's H [address] [place] [address] Ana Granda MD Encounter for supervision of normal first in second trimester (Primary Dx) 07/17/2018 1:08 PM EDT - 07/17/2018 11:59 PM EDT Hospital Encounter [facility] PERINATOLOG[facility] [place] [address] Antionette Singh, Encounter for supervision of normal first in second trimester Discharge Disposition: Home or Self Care 07/08/2018 1:10 PM EDT ROUTINE FOLLOW UP OB VISIT [facility] [address] [place] [address] Antionette Singh, Encounter for supervision of normal first in second trimester 07/05/2018 1:35 PM EDT - 07/05/2018 11:59 PM EDT Hospital Encounter [facility] PERINATOLOG[facility] [place] [address] Antionette Singh, Encounter for supervision of normal first in second trimester Discharge Disposition: Home or Self Care 06/12/2018 Telephone [facility] [address] [place] [address] Martha Morillo CNA No Show (No show--Genetic counseling. 06/12/18) 06/10/2018 1:10 PM EDT ROUTINE FOLLOW UP OB VISIT [facility] [address] [place] [address] Antionette Singh, Encounter for supervision of normal first in second trimester 05/20/2018 Telephone [facility] Steven [address] [place] [address] Alyssa Garber RMA Visit Follow Up; Results 05/15/2018 Telephone [facility] 3[address] [place] [address] Carmen Boo, Clerical Staff Advice Only (Genetic counseling does not need authorization. The patient will be contacted in order to facilitate scheduling an appointment with the genetic counselors. ) 05/14/2018 1:27 PM EDT - 05/14/2018 11:59 PM EDT Hospital Encounter [facility] [address] [place] [id number] Discharge Disposition: Home or Self Care 05/14/2018 1:30 PM EDT INITIAL VISIT [facility] Abkar Hernandez [address] [place] [address] Antionette Singh DO Encounter for supervision of normal first in first trimester 05/08/2018 4:00 PM EDT - 05/08/2018 11:59 PM EDT Hospital Encounter [facility] [address] [place] [address] Encounter for supervision of normal first in first trimester Discharge Disposition: Home or Self Care 04/19/2018 1:30 PM EDT INITIAL VISIT [facility] Akbar [address] [place] [address] Rebecca Watson RMA Encounter for supervision of normal first in first trimester (Primary Dx) 04/05/2018 8:47 AM EDT - 04/05/2018 12:23 PM EDT Emergency [facility] [address] [place] [address] Chasity Nice MD Vaginal bleeding in (Primary Dx) Discharge Disposition: Home or Self Care 03/27/2018 Telephone [facility] [address] [place] [address] [place] [address] Deena Graham RMA Other (nob u/s order ) 03/06/2018 3:55 PM EDT Ancillary Procedure [facility] [place] [address] [facility] [address] [place] [address] Rita Reynolds ARNP Acute pain of left shoulder Discharge Disposition: Home or Self Care 03/06/2018 3:30 PM EDT Office Visit [facility] [place] [address] [place] [address] Rita Reynolds ARNP Acute pain of left shoulder (Primary Dx); Sprain left shoulder 10/05/2017 5:29 PM EST - 10/05/2017 8:46 PM EST Emergency [place] [facility] [place] [address] Regis Em MD Acute right flank pain (Primary Dx); Acute hyperglycemia Discharge Disposition: Home or Self Care 11/17/2015 10:53 AM EST - 11/17/2015 2:32 PM EST Emergency [facility] [address] [place] [address] Chavez Choudhury MD Right lower quadrant abdominal pain (Primary Dx) Discharge Disposition: Home or Self Care 06/09/2010 4:53 PM EDT - 06/09/2010 5:44 PM EDT Emergency [facility] [place] [facility] [address] [place] [address] Chasity Nice MD Fracture Discharge Disposition: Home or Self Care 09/30/2006 6:43 PM EST - 09/30/2006 8:25 PM EST Emergency [facility] Generic, Historical Provider Allergies Active Allergy Reactions Criticality Noted Date Comments Glyburide Rash Medium 10/09/2018 Pantoprazole Swelling High 07/09/2023 Medications ARIPiprazole (ABILIFY) 5 mg Oral TabletIndication s:Generalized anxiety disorder,Moderat e episode of recurrent major depressive disorder (HCC) Take 1 Tablet by mouth daily. 30 Tablet 5 3 Active cyclobenzaprine (FLEXERIL) 10 mg Oral TabletIndication s:Chronic midline low back pain without sciatica Take 1 Tablet by mouth 3 times daily as needed for Muscle spasms. 90 Tablet 5 3 Active hydrOXYzine (VISTARIL) 100 mg Oral CapsuleIndicatio ns:Generalized anxiety disorder,Moderat e episode of recurrent major depressive disorder (HCC) Take 1 Capsule by mouth 3 times daily. 90 Capsule 5 3 Active traZODone (DESYREL) 150 mg Oral TabletIndication s:Moderate episode of recurrent major depressive disorder (HCC),Generalize d anxiety disorder Take 1-2 Tablets by mouth nightly. 60 Tablet 11 4 Active Additional Information Patient not taking.Reported on 09/06/2024 famotidine (PEPCID) 20 mg Oral TabletIndication s:Acute gastritis without hemorrhage, unspecified gastritis type Take 1 Tablet by mouth 2 times daily. 60 Tablet 3 4 Active QUEtiapine (SEROQUEL) 50 mg Oral TabletIndication s:Generalized anxiety disorder,Moderat e episode of recurrent major depressive disorder (HCC) Take 1 Tablet by mouth nightly. 30 Tablet 1 4 Active Additional Information Patient not taking.Reported on 09/06/2024 vilazodone (VIIBRYD) 20 mg Oral TabletIndication s:Generalized anxiety disorder,Moderat e episode of recurrent major depressive disorder (HCC) Take 1 Tablet by mouth daily (with breakfast). 30 Tablet 1 4 Active Additional Information Patient not taking.Reported on 09/06/2024 Active Problems Patient Care Coordination No te Formatting of this note migh t be different from the original. Care gap audit completed by Chelo Ibrahim RN on 03/20/2024. Problem Noted Date Diagnosed Date Breast pain 07/06/2022 Overview (01/08/2024): Last Assessment & Plan: Dicloxacillin sent today Plan for breast US if not improved in 1 week NSAIDs and warm/cool compresses for pain control History of recurrent miscarriages 07/06/2022 Overview (01/08/2024): Last Assessment & Plan: All prior to 7 weeks with two separate partners, denies genetic disorders H/o 2 successful pregnancies TVUS from ED visit normal without structural abnormalities Will get metabolic screening today Acute appendicitis with loca lized peritonitis, without perforation, abscess, or gangrene 01/01/2022 Assessment & Plan (01/01/2022 5:17 PM EDT): I personally reviewed the patient's CT scan. It demonstrates acute appendicitis. I have reviewed the risks, benefits, and alternatives of laparoscopic appendectomy, possible open. We discussed postoperative course and care. Answered all of her questions. She stated her understanding and desire to proceed with surgery. Patient asked that I call her best friend and her mother with a postoperative update. Other headache syndrome 01/01/2022 Assessment & Plan (01/01/2022 5:19 PM EDT): Patient reports having chronic headaches. She had a CT of the head during this ER visit. It raises the possibility of intracranial hypertension. The patient reports that she was recently seen by ophthalmology. Would defer further work-up of this to the patient's primary care physician. I did discuss the CT results with the patient as well as the recommendation of following up with ophthalmology. That was when she reported that she has already seen ophthalmology. Major depressive disorder, r ecurrent severe without psychotic features 11/14/2021 Generalized anxiety disorder 11/14/2021 Cannabis use disorder, severe, dependence 2021 Anorexia nervosa, restricting type 11/14/2021 Personality disorder, unspecified 11/14/2021 Chronic post-traumatic stress disorder (PTSD) History of 06/11/2020 Positive urine drug screen 06/09/2020 Overview (06/11/2020): +cannabis (uses CBD oil for anxiety) @ [facility]-->advised cessation--re-screen 3rd trimester Anxiety and depression 05/15/2011 Resolved Problems Problem Noted Date Diagnosed Date Resolved Date MDD (major depressive disord er), recurrent severe, without psychosis 11/10/2021 11/14/2021 YANET (generalized anxiety disorder) 11/10/2021 11/14/2021 Gestational diabetes mellitu s (GDM) in third trimester controlled on oral hypoglycemic drug 11/25/2020 12/21/2020 Overview (11/30/2020): Added automatically from request for surgery [id number] labor in third trime ster without delivery 11/24/2020 12/06/2020 White classification A2 gest ational diabetes mellitus 11/10/2020 12/21/2020 History of gestational diabetes 06/11/2020 12/27/2020 Overview (06/14/2020): HgbA1c 4.8 BMI 36.0-36.9,adult 06/11/2020 01/02/20 Encounter for supervision of normal in third trimester 06/11/2020 06/11/2020 Supervision of other normal , antepartum 06/10/2020 12/21/2020 Overview (10/22/2020): pt GS:requested-->referral placed / not done JARROD by LMP (c/w 13 wk US) PNL's nml Anatomy US nml but with suboptimal views, 3VC, posterior placenta - f/u anatomy for suboptimal views nml. MFM rec growth q4wk in 3rd trimester GCT / CBC still needed as of 30 wks visit Flu / TDaP advised History of severe pre-eclampsia 11/30/2018 12/27/2020 Overview (12/21/2020): HELLP @ 34 wks delivery delivered 10/14/2018 11/30/2018 labor in third trimester 10/13/2018 11/30/2018 Pre-eclampsia, severe, with delivery 10/13/2018 11/30/2018 Non-reactive NST (non-stress test) 10/10/2018 11/30/2018 Gestational diabetes mellitu s (GDM) in third trimester controlled on oral hypoglycemic drug 10/01/2018 10/09/2018 Gestational diabetes mellitu s (GDM) in third trimester controlled on oral hypoglycemic drug 09/02/2018 10/24/2018 Overview (10/09/2018): GCT 307 Growth 30wk: 2089g (80%) cephalic, AC >97% AT was ordered 10/01 Had reaction to glyburide, started metformin 500mg BID 10/09 Encounter for supervision of normal first 05/14/2018 10/24/2018 Overview (09/16/2018): pt Dating by LMP = 7 wk US PNL nml GS- requested, referral placed - No showed Anatomy US -limited, repeat 2 wks ordered> nml S/p Flu contractions 018 Immunizations Immunization Administration Dates Next Due DTaP, Unspecified Formulation 05/02/2004 IPV 05/02/2004 Influenza Patient Reported 08/09/2019,08/02/2018 MMR 05/02/2004 Tdap 12/22/2020, 1,10/15/2018(Deferred: Contraindication),08/15/2018 Family History Medical History Relation Name Comments Asthma Father Cancer Maternal Grandfather High Blood Pressure Mother Heart Attack Paternal Grandfather COPD Paternal Grandmother Diabetes Paternal Grandmother Hypertension Paternal Grandmother Asthma Sister Relation Name Status Comments Father Alive Maternal Grandfather Mother Alive Paternal Grandfather Paternal Grandmother Alive Sister Social History Smoking Status as of 06/26/2025 Tobacco Use Types Packs/Day Years Used Date Smoking Tobacco: Never Assessed Overall Financial Resource Strain (CARDIA) Answe r Date Recorded How hard is it for you to pa y for the very basics like food, housing, medical care, and heating? Not hard at all 12/23/2020 PHQ-2 Answer Date Recorded PHQ-2 Total Score 0 11/23/2022 [facility] [place] [facility] Occup[facility] - Occupational Stress Questionnaire Answer Date Recorded Do you feel stress - tense, restless, nervous, or anxious, or unable to sleep at night because your mind is troubled all the time - these days? Rather much 12/23/2020 Exercise Vital Sign Answer Date Recorde d On average, how many days pe r week do you engage in moderate to strenuous exercise (like a brisk walk)? 3 days 12/23/2020 On average, how many minutes do you engage in exercise at this level? 60 min 12/23/2020 Hunger Vital Sign Answer Date Recorded Within the past 12 months, y ou worried that your food would run out before you got the money to buy more. Never true 12/24/19 21 Within the past 12 months, t he food you bought just didn't last and you didn't have money to get more. Never true 12/23/2020 PRAPARE - Transportation Answer Date Re corded In the past 12 months, has l ack of transportation kept you from medical appointments or from getting medications? No 12/13 In the past 12 months, has l ack of transportation kept you from meetings, work, or from getting things needed for daily living? No 12/23/2020 Sex and Gender Information Value Date Recorded Sex Assigned at Not on file Legal Sex Female 9:19 PM EDT Gender Identity Not on file Sexual Orientation Not on file Last Filed Vital Signs Vital Sign Reading Time Taken Comments Blood Pressure 120/70 09/06/2024 4:49 PM EST Pulse 73 09/06/2024 4:49 PM EST Temperature 36.8 C (98.3 F) 09/06/2024 4:49 PM EST Respiratory Rate 20 09/06/2024 4:49 PM EST Oxygen Saturation 98% 09/06/2024 4:49 PM EST Inhaled Oxygen Concentration - - Weight 88.5 kg (195 lb 3.2 oz) 09/06/2024 4:49 P M EST Height 154.9 cm (5' 1 ) 01/08/2024 5:45 PM EDT Body Mass Index 36.88 01/08/2024 5:45 PM EDT Plan of Treatment Not on file Procedures Procedure Name Priority Date/Time Associated Diagnosis Comments POCT STREP A DNA Routine 09/06/2024 5:55 PM EST Sore throat HEMOGLOBIN A1C Routine 06/07/2024 4:43 PM EDT Hyperglycemia COMPREHENSIVE METABOLIC PANEL Routine 06/07/2024 4:43 PM EDT Hyperglycemia POCT EKG Routine 01/08/2024 5:45 PM EDT Chest pain at rest SCANNED LABS 12/27/2023 12:05 PM EDT ACUTE HEPATITIS PANEL Routine 11/12/2023 3:51 PM EST Screening for STDs (sexually transmitted diseases) HIV AG/AB Routine 11/12/2023 3:51 PM EST Screening for STDs (sexually transmitted diseases) SYPHILIS SCREEN WITH REFLEX RPR QUANT Routine 11/12/2023 3:51 PM EST Screening for STDs (sexually transmitted diseases) HSV TYPE 1,2, IGG -REF LAB Routine 11/12/2023 3:51 PM EST Screening for STDs (sexually transmitted diseases) TRICHOMONAS VAGINALIS BY TMA (PAP PANEL) Routine 11/12/2023 3:48 PM EST Screening for cervical cancer GC CHLAMYDIA THIN PREP Routine 11/12/2023 3:48 PM EST Screening for cervical cancer MOLECULAR VAGINITIS PANEL (MVP) Routine 11/12/2023 3:48 PM EST Screening for cervical cancer Screening for STDs (sexually transmitted diseases) Annual physical exam MANAGER DIESEL CYTOLOGY REQUEST (PAP ONLY) Routine 11/12/2023 12:00 PM EST Screening for cervical cancer [facility] MANAGER DIESEL CYTOLOGY ORDER Routine 11/12/2023 12:00 PM EST Screening for cervical cancer CT ABDOMEN PELVIS W CONTRAST STAT 09/21/2023 5:26 PM EST Abdominal pain, RUQ (right upper quadrant) Nausea, vomiting and diarrhea COMPREHENSIVE METABOLIC PANEL STAT 09/21/2023 2:15 PM EST Urinary frequency CBC WITH DIFF STAT 09/21/2023 2:15 PM EST Abdominal pain, RUQ (right upper quadrant) MRI BRAIN W WO CONTRAST Routine 09/08/2023 2:41 PM EST Migraine without status migrainosus, not intractable, unspecified migraine type Post concussive syndrome WOUND CULTURE (STAIN INCLUDED) Routine 08/02/2023 7:13 PM EDT Breast abscess XR LUMBAR SPINE AP LATERAL AND OBLIQUES Routine 06/25/2023 4:10 PM EDT Chronic midline low back pain without sciatica DDD (degenerative disc disease), lumbar [id number] Routine 06/03/2023 3:58 PM EDT Exposure to confirmed case of COVID-19 POCT SARS-COV-2 RNA SEP Routine 06/03/2023 3:36 PM EDT Exposure to confirmed case of COVID-19 HUMAN CHORIONIC GONADOTROPIN QUANTITATIVE Routine 02/13/2023 12:09 PM EDT Positive urine test SEP URINALYSIS POC Routine 02/10/2023 9:42 AM EDT UTI symptoms URINE CULTURE (NO STAIN) Routine 02/10/2023 9:42 AM EDT UTI symptoms HUMAN CHORIONIC GONADOTROPIN QUANTITATIVE STAT 02/02/2023 11:41 AM EDT BASIC METABOLIC PANEL STAT 02/02/2023 11:41 AM EDT CBC WITH DIFF STAT 02/02/2023 11:41 AM EDT URINALYSIS REFLEX STAT 02/02/2023 11:41 AM EDT UA W/REFLEX TO CULTURE STAT 02/02/2023 11:41 AM EDT URINE CULTURE (NO STAIN) STAT 02/02/2023 11:41 AM EDT EXTRA HERRERA URINE CX STAT 02/02/2023 11:41 AM EDT POCT SARS-COV-2 RNA SEP Routine 01/29/2023 3:59 PM EDT Acute cough CHLAMYDIA/GC BY TMA Routine 12/23/2022 4:14 PM EST STD exposure MOLECULAR VAGINITIS PANEL (MVP) Routine 12/23/2022 4:14 PM EST STD exposure CHLAMYDIA/GC Routine 12/23/2022 4:14 PM EST STD exposure CT HEAD WO CONTRAST STAT 12/10/2022 5:57 PM EST PATHOLOGY TISSUE REQUEST Routine 11/23/2022 4:36 PM EST Pigmented skin lesion suspicious for malignant neoplasm POCT SARS-COV-2 RNA SEP Routine 10/20/2022 3:51 PM EST Person under investigation for COVID-19 XR RADIUS ULNA LEFT AP AND LATERAL JENNIFER 05/31/2022 4:15 PM EDT US PELVIS AND TRANSVAGINAL NON OB COMPLETE Routine 05/24/2022 1:12 PM EDT Pelvic pain in female HUMAN CHORIONIC GONADOTROPIN QUANTITATIVE Routine 05/02/2022 3:29 PM EDT Amenorrhea POCT URINE TELCOR Routine 05/02/2022 3:05 PM EDT Amenorrhea POCT LUPILLO SARS ANTIGEN Routine 04/15/2022 2:12 PM EDT Sore throat POCT RAPID STREP A Routine 04/15/2022 2:10 PM EDT Sore throat STREP A DNA Routine 04/15/2022 2:10 PM EDT Sore throat EC ECHOCARDIOGRAM COMPLETE W DOPPLER AND COLOR FLOW MAPPING Routine 01/10/2022 2:59 PM EDT Chest pain, unspecified type SCANNED RHYTHM STRIPS 01/02/2022 11:27 AM EDT PATHOLOGY TISSUE REQUEST Routine 01/01/2022 6:24 PM EDT Acute appendicitis, unspecified acute appendicitis type INTRAOP AIRWAY PLACEMENT Routine 01/01/2022 6:02 PM EDT LAPAROSCOPIC APPENDECTOMY 01/01/2022 5:52 PM EDT Acute appendicitis, unspecified acute appendicitis type CT HEAD WO CONTRAST STAT 01/01/2022 4:[address] ABD PEL ED FAST W CONTRAST STAT 01/01/2022 4:00 PM EDT URINALYSIS STAT 01/01/2022 3:12 PM EDT URINE CULTURE (NO STAIN) Add-On 01/01/2022 3:12 PM EDT EXTRA HERRERA URINE CX STAT 01/01/2022 3:12 PM EDT WET PREP STAT 01/01/2022 3:07 PM EDT CHLAMYDIA/GC BY TMA Routine 01/01/2022 3:07 PM EDT CHLAMYDIA/GC Routine 01/01/2022 3:07 PM EDT HUMAN CHORIONIC GONADOTROPIN QUANTITATIVE STAT 01/01/2022 3:02 PM EDT BASIC METABOLIC PANEL STAT 01/01/2022 3:02 PM EDT CBC STAT 01/01/2022 3:02 PM EDT XR LUMBAR SPINE AP AND LATERAL Routine 12/19/2021 1:05 PM EST Chronic bilateral low back pain without sciatica XR THORACIC SPINE AP AND LATERAL Routine 12/19/2021 1:05 PM EST Chronic bilateral thoracic back pain DRUG CONFIRMATION, CANNABINOIDS - URINE Routine 11/30/2021 3:52 PM EST Cannabis use disorder, severe, dependence (HCC) DRUGS OF ABUSE WITH REFLEX TO CONFIRMATION, URINE Routine 11/30/2021 3:52 PM EST Cannabis use disorder, severe, dependence (HCC) RHEUMATOID FACTOR QUANTITATIVE Routine 11/30/2021 3:26 PM EST Chronic bilateral thoracic back pain Chronic bilateral low back pain without sciatica SEDIMENTATION RATE AUTOMATED Routine 11/30/2021 3:26 PM EST Chronic bilateral thoracic back pain Chronic bilateral low back pain without sciatica URIC ACID Routine 11/30/2021 3:26 PM EST Chronic bilateral thoracic back pain Chronic bilateral low back pain without sciatica C-REACTIVE PROTEIN Routine 11/30/2021 3:26 PM EST Chronic bilateral thoracic back pain Chronic bilateral low back pain without sciatica CYCLIC CITRULLINATED PEPTIDE ANTIBODY, IGG Routine 11/30/2021 3:26 PM EST Chronic bilateral thoracic back pain Chronic bilateral low back pain without sciatica LIPID SCREEN Routine 11/30/2021 3:26 PM EST Weight loss, unintentional T4, FREE (THYROXINE) Routine 11/30/2021 3:26 PM EST Weight loss, unintentional VITAMIN D 25 HYDROXY Routine 11/30/2021 3:26 PM EST Generalized anxiety disorder Weight loss, unintentional HEMOGLOBIN A1C Routine 11/30/2021 3:26 PM EST Weight loss, unintentional COMPREHENSIVE METABOLIC PANEL Routine 11/30/2021 3:26 PM EST Generalized anxiety disorder YANET (generalized anxiety disorder) Weight loss, unintentional CBC WITH DIFF Routine 11/30/2021 3:26 PM EST Major depressive disorder, recurrent severe without psychotic features (HCC) Generalized anxiety disorder YANET (generalized anxiety disorder) THYROID STIMULATING HORMONE Routine 11/30/2021 3:26 PM EST Generalized anxiety disorder Weight loss, unintentional POCT EKG Routine 11/30/2021 2:46 PM EST Chest pain, unspecified type MOLECULAR VAGINITIS PANEL (MVP) Routine 11/24/2021 4:11 PM EST History of trichomonal vaginitis POCT URINE TELCOR Routine 08/24/2021 11:48 AM EST Vaginal discharge Pelvic pain in female Irregular menses TRICHOMONAS VAGINALIS BY TMA Routine 08/24/2021 11:47 AM EST Vaginal discharge CHLAMYDIA/GC BY TMA Routine 08/24/2021 11:47 AM EST Vaginal discharge GENITAL CULTURE (STAIN INCLUDED) Routine 08/24/2021 11:47 AM EST Vaginal discharge TRICHOMONAS VAGINALIS TMA Routine 08/24/2021 11:47 AM EST Vaginal discharge CHLAMYDIA/GC Routine 08/24/2021 11:47 AM EST Vaginal discharge US PELVIS AND TRANSVAGINAL NON OB COMPLETE Routine 05/13/2021 6:16 PM EDT Menorrhagia with regular cycle CBC Routine 04/07/2021 12:46 PM EDT Menorrhagia with regular cycle HUMAN CHORIONIC GONADOTROPIN QUANTITATIVE Routine 02/01/2021 4:55 PM EDT Missed period SEP URINALYSIS POC Routine 01/10/2021 2:36 PM EDT Urinary frequency MOLECULAR VAGINITIS PANEL (MVP) STAT 01/10/2021 2:34 PM EDT Itching POCT URINE TELCOR Routine 12/27/2020 4:36 PM EDT Encounter for surveillance of contraceptive drug CBC WITH DIFF Routine 12/02/2020 5:44 AM EST GLUCOSE METER POC Routine 12/01/2020 9:26 PM EST ADMIT Routine 12/01/2020 11:19 AM EST PATHOLOGY TISSUE REQUEST Routine 12/01/2020 10:49 AM EST SPINAL BLOCK Routine 12/01/2020 10:22 AM EST INTRAOP AIRWAY PLACEMENT Routine 12/01/2020 10:20 AM EST REPEAT SECTION 12/01/2020 9:50 AM EST History of Gestational diabetes mellitus (GDM) in third trimester controlled on oral hypoglycemic drug Special Needs 39./10/04 - LVM for pt to call back to schedule covid testing TODAY for on Thursday 11/30 - hblankenship IP CONSULT TO SOCIAL WORK Routine 12/01/2020 9:08 AM EST PT / INR STAT 12/01/2020 8:12 AM EST DRUGS OF ABUSE, SCREEN ONLY, URINE Routine 12/01/2020 7:27 AM EST BB HISTORY CHECK STAT 12/01/2020 7:26 AM EST ANTIBODY SCREEN IGG STAT 12/01/2020 7:26 AM EST ABORH STAT 12/01/2020 7:26 AM EST TYPE AND SCREEN STAT 12/01/2020 7:26 AM EST COMPREHENSIVE METABOLIC PANEL Add-On 12/01/2020 7:26 AM EST SYPHILIS SCREEN WITH REFLEX RPR QUANT STAT 12/01/2020 7:26 AM EST CBC WITH DIFF STAT 12/01/2020 7:26 AM EST HIV AG/AB STAT 12/01/2020 7:26 AM EST HIGH RISK HCV ANTIBODY REFLEX STAT 12/01/2020 7:26 AM EST CHLAMYDIA/GC BY TMA Routine 11/26/2020 3:41 PM EST Supervision of other normal , antepartum STREP B DNA Routine 11/26/2020 3:41 PM EST Supervision of other normal , antepartum CHLAMYDIA/GC Routine 11/26/2020 3:41 PM EST Supervision of other normal , antepartum SEP URINALYSIS POC Routine 11/26/2020 3:13 PM EST Supervision of other normal , antepartum CORONAVIRUS 2019 Routine 11/26/2020 12:47 PM EST Pre-op testing Encounter for laboratory testing for COVID-19 virus GLUCOSE METER POC Routine 11/25/2020 12:12 PM EST PN US > 14 WEEKS AND BPP WITHOUT NST Routine 11/25/2020 11:17 AM EST GLUCOSE METER POC Routine 11/25/2020 6:22 AM EST GLUCOSE METER POC Routine 11/24/2020 6:40 PM EST [id number] Routine 11/24/2020 5:56 PM EST BB HISTORY CHECK STAT 11/24/2020 5:07 PM EST ANTIBODY SCREEN IGG STAT 11/24/2020 5:07 PM EST ABORH STAT 11/24/2020 5:07 PM EST TYPE AND SCREEN STAT 11/24/2020 5:07 PM EST HEMOGLOBIN A1C Add-On 11/24/2020 5:07 PM EST COMPREHENSIVE METABOLIC PANEL STAT 11/24/2020 5:07 PM EST SYPHILIS SCREEN WITH REFLEX RPR QUANT STAT 11/24/2020 5:07 PM EST HIGH RISK HCV ANTIBODY REFLEX STAT 11/24/2020 5:07 PM EST HIV AG/AB STAT 11/24/2020 5:07 PM EST CBC STAT 11/24/2020 5:07 PM EST DRUGS OF ABUSE WITH REFLEX TO CONFIRMATION, URINE STAT 11/24/2020 5:07 PM EST ADMIT Routine 11/24/2020 4:43 PM EST URINALYSIS STAT 11/24/2020 1:28 PM EST PN US BIOPHYSICAL PROFILE WITH NST SINGLE OR FIRST GESTATION Routine 11/18/2020 3:41 PM EST White classification A2 gestational diabetes mellitus SEP URINALYSIS POC Routine 11/10/2020 4:03 PM EST Supervision of other normal , antepartum HEPATITIS C ANTIBODY IGM + IGG Routine 11/01/2020 4:36 PM EST Exposure to STD HEPATITIS B SURFACE ANTIGEN Routine 11/01/2020 4:36 PM EST Exposure to STD SYPHILIS SCREEN WITH REFLEX RPR QUANT Routine 11/01/2020 4:36 PM EST Exposure to STD HIV AG/AB Routine 11/01/2020 4:36 PM EST Exposure to STD CHLAMYDIA/GC TMA-REF LAB Routine 11/01/2020 4:35 PM EST Supervision of other normal , antepartum Exposure to STD CHLAMYDIA/GC Routine 11/01/2020 4:35 PM EST Supervision of other normal , antepartum Exposure to STD SEP URINALYSIS POC Routine 11/01/2020 3:58 PM EST Supervision of other normal , antepartum PN US OB FOLLOW UP TRANSABDOMINAL APPROACH EACH GESTATION Routine 11/01/2020 8:56 AM EST Supervision of other normal , antepartum BMI 36.0-36.9,adult PREG GLUCOSE SCREEN Routine 10/20/2020 2:30 PM EST Supervision of other normal , antepartum CBC WITH DIFF Routine 10/20/2020 2:30 PM EST Supervision of other normal , antepartum SEP URINALYSIS POC Routine 2020 1:18 PM EST Encounter for supervision of other normal in third trimester SEP URINALYSIS POC Routine 09/28/2020 11:28 AM EST Supervision of other normal , antepartum ACUTE HEPATITIS PANEL Routine 09/20/2020 2:48 PM EST STD exposure SYPHILIS SCREEN WITH REFLEX RPR QUANT Routine 09/20/2020 2:48 PM EST STD exposure HIV AG/AB Routine 09/20/2020 2:48 PM EST STD exposure HEMOGLOBIN A1C Routine 09/20/2020 2:48 PM EST Hyperglycemia SEDIMENTATION RATE AUTOMATED Routine 09/20/2020 2:48 PM EST New daily persistent headache CBC Routine 09/20/2020 2:48 PM EST New daily persistent headache COMPREHENSIVE METABOLIC PANEL Routine 09/20/2020 2:48 PM EST New daily persistent headache MOLECULAR VAGINITIS PANEL (MVP) Routine 09/20/2020 2:47 PM EST STD exposure CHLAMYDIA/GC TMA-REF LAB Routine 09/20/2020 2:45 PM EST STD exposure CHLAMYDIA/GC Routine 09/20/2020 2:45 PM EST STD exposure PN US OB FOLLOW UP TRANSABDOMINAL APPROACH EACH GESTATION Routine 09/01/2020 2:50 PM EST Encounter for anatomic survey TRICHOMONAS VAGINALIS BY TMA-REF LAB Routine 08/04/2020 1:24 PM EDT Supervision of other normal , antepartum History of History of severe pre-eclampsia History of gestational diabetes TRICHOMONAS VAGINALIS TMA Routine 08/04/2020 1:24 PM EDT Supervision of other normal , antepartum History of History of severe pre-eclampsia History of gestational diabetes CHLAMYDIA/GC TMA-REF LAB Routine 08/04/2020 1:24 PM EDT Supervision of other normal , antepartum History of History of severe pre-eclampsia History of gestational diabetes CHLAMYDIA/GC Routine 08/04/2020 1:24 PM EDT Supervision of other normal , antepartum History of History of severe pre-eclampsia History of gestational diabetes SEP URINALYSIS POC Routine 08/04/2020 12:47 PM EDT Supervision of other normal , antepartum PN US OB DETAIL ANATOMY SINGLE OR FIRST GESTATION Routine 08/04/2020 12:03 PM EDT Encounter for supervision of other normal in second trimester URINE CULTURE (NO STAIN) Routine 07/06/2020 4:11 PM EDT Hematuria, unspecified type SEP URINALYSIS POC Routine 07/06/2020 3:58 PM EDT Encounter for supervision of other normal in second trimester POCT RAPID STREP A Routine 07/01/2020 12:21 PM EDT Sore throat PN US OB < 14 WEEKS SINGLE OR FIRST GESTATION Routine 06/17/2020 8:12 AM EDT Encounter for supervision of other normal in third trimester PARTIAL THROMBOPLASTIN TIME Routine 06/14/2020 12:45 PM EDT History of severe pre-eclampsia PT / INR Routine 06/14/2020 12:45 PM EDT History of severe pre-eclampsia PROTEIN LEVEL 24 HOUR URINE Routine 06/13/2020 12:41 PM EDT History of severe pre-eclampsia CREATININE LEVEL 24 HOUR URINE Routine 06/13/2020 12:41 PM EDT History of severe pre-eclampsia MANAGER DIESEL CYTOLOGY REQUEST (PAP ONLY) Routine 06/11/2020 11:32 AM EDT Encounter for supervision of other normal in third trimester [facility] MANAGER DIESEL CYTOLOGY ORDER Routine 06/11/2020 11:32 AM EDT Encounter for supervision of other normal in third trimester TRICHOMONAS VAGINALIS BY TMA-REF LAB Routine 06/11/2020 11:32 AM EDT Encounter for supervision of other normal in third trimester GC CHLAMYDIA THIN PREP Routine 06/11/2020 11:32 AM EDT Encounter for supervision of other normal in third trimester URINE CULTURE (NO STAIN) Routine 06/11/2020 11:04 AM EDT Encounter for supervision of other normal in third trimester SEP URINALYSIS POC Routine 06/11/2020 10:58 AM EDT Encounter for supervision of other normal in third trimester DRUG CONFIRMATION, CANNABINOIDS - URINE Routine 06/09/2020 4:30 PM EDT First trimester screening DRUGS OF ABUSE WITH REFLEX TO CONFIRMATION, URINE Routine 06/09/2020 4:30 PM EDT First trimester screening URINE CULTURE (NO STAIN) Routine 06/09/2020 4:30 PM EDT First trimester screening BB HISTORY CHECK Routine 06/09/2020 4:24 PM EDT First trimester screening ANTIBODY SCREEN IGG Routine 06/09/2020 4:24 PM EDT First trimester screening ABORH Routine 06/09/2020 4:24 PM EDT First trimester screening HEMOGLOBIN A1C Routine 06/09/2020 4:24 PM EDT History of gestational diabetes URIC ACID Routine 06/09/2020 4:24 PM EDT History of severe pre-eclampsia LACTATE DEHYDROGENASE Routine 06/09/2020 4:24 PM EDT History of severe pre-eclampsia HEPATIC FUNCTION PANEL Routine 06/09/2020 4:24 PM EDT History of severe pre-eclampsia BASIC METABOLIC PANEL Routine 06/09/2020 4:24 PM EDT History of severe pre-eclampsia HIV AG/AB Routine 06/09/2020 4:24 PM EDT First trimester screening HEPATITIS B SURFACE ANTIGEN Routine 06/09/2020 4:24 PM EDT First trimester screening SYPHILIS SCREEN WITH REFLEX RPR QUANT Routine 06/09/2020 4:24 PM EDT First trimester screening RUBELLA ANTIBODY IGG Routine 06/09/2020 4:24 PM EDT First trimester screening CBC WITH DIFF Routine 06/09/2020 4:24 PM EDT First trimester screening HEPATITIS C ANTIBODY IGM + IGG Routine 06/09/2020 4:24 PM EDT First trimester screening US OB <11 WEEKS FIRST GESTATION AND OB TRANSVAGINAL STAT 05/22/2020 1:28 AM EDT URINALYSIS STAT 05/22/2020 12:14 AM EDT EXTRA HERRERA URINE CX STAT 05/22/2020 12:14 AM EDT CBC WITH DIFF STAT 05/21/2020 11:57 PM EDT BASIC METABOLIC PANEL STAT 05/21/2020 11:57 PM EDT HUMAN CHORIONIC GONADOTROPIN QUANTITATIVE STAT 05/21/2020 11:57 PM EDT HUMAN CHORIONIC GONADOTROPIN QUANTITATIVE Routine 04/16/2020 1:29 PM EDT Positive test HUMAN CHORIONIC GONADOTROPIN QUANTITATIVE Routine 04/13/2020 12:45 PM EDT Positive test ANTINUCLEAR ANTIBODIES (JOSH) SCREEN BY RICHARD W/ REFLEX TO IFA Routine 12/17/2019 3:57 PM EST Malaise and fatigue Myofascial pain C-REACTIVE PROTEIN Routine 12/17/2019 3:57 PM EST Malaise and fatigue Myofascial pain T4, FREE (THYROXINE) Routine 12/17/2019 3:57 PM EST Malaise and fatigue TSH REFLEX TO FT4 Routine 12/17/2019 3:57 PM EST Malaise and fatigue VITAMIN D 25 HYDROXY Routine 12/17/2019 3:57 PM EST Malaise and fatigue Myofascial pain COMPREHENSIVE METABOLIC PANEL Routine 12/17/2019 3:57 PM EST Malaise and fatigue CBC Routine 12/17/2019 3:57 PM EST Malaise and fatigue HUMAN CHORIONIC GONADOTROPIN QUANTITATIVE Routine 12/17/2019 3:57 PM EST Malaise and fatigue US OB TRANSVAGINAL < 11 WEEKS STAT 09/02/2019 1:57 AM EST CHLAMYDIA/GC BY TMA Routine 09/02/2019 1:29 AM EST TRICHOMONAS AG STAT 09/02/2019 1:29 AM EST CHLAMYDIA/GC Routine 09/02/2019 1:29 AM EST GRAM STAIN (STAIN ONLY) STAT 09/02/2019 1:29 AM EST HUMAN CHORIONIC GONADOTROPIN QUANTITATIVE STAT 09/02/2019 1:10 AM EST HUMAN CHORIONIC GONADOTROPIN QUANTITATIVE Routine 08/29/2019 3:23 PM EST Positive test HUMAN CHORIONIC GONADOTROPIN QUANTITATIVE Routine 08/26/2019 5:14 PM EST Positive test EXTRA HERRERA URINE CX STAT 08/03/2019 4:05 PM EDT URINALYSIS STAT 08/03/2019 4:04 PM EDT CBC WITH DIFF STAT 08/03/2019 3:58 PM EDT EXTRA GOLD SST Routine 08/03/2019 3:57 PM EDT EXTRA LIGHT BLUE Routine 08/03/2019 3:57 PM EDT EXTRA TUBES PANEL Routine 08/03/2019 3:57 PM EDT HUMAN CHORIONIC GONADOTROPIN QUANTITATIVE STAT 08/03/2019 3:57 PM EDT BASIC METABOLIC PANEL STAT 08/03/2019 3:57 PM EDT HUMAN CHORIONIC GONADOTROPIN QUANTITATIVE Routine 08/01/2019 2:09 PM EDT Spontaneous loss POCT URINALYSIS AUTOMATED Routine 07/31/2019 3:15 PM EDT UTI (urinary tract infection), uncomplicated URINE CULTURE (NO STAIN) Routine 07/31/2019 3:03 PM EDT UTI (urinary tract infection), uncomplicated HUMAN CHORIONIC GONADOTROPIN QUANTITATIVE Routine 07/30/2019 4:35 PM EDT Vaginal bleeding in URINE CULTURE (NO STAIN) STAT 07/28/2019 6:55 PM EDT URINALYSIS STAT 07/28/2019 5:57 PM EDT BB HISTORY CHECK STAT 07/28/2019 4:49 PM EDT ABORH STAT 07/28/2019 4:49 PM EDT HUMAN CHORIONIC GONADOTROPIN QUANTITATIVE STAT 07/28/2019 4:49 PM EDT XR THORACIC SPINE AP LATERAL AND SWIMMERS JENNIFER 05/24/2019 4:27 PM EDT POCT URINE Routine 10/28/2018 2:09 PM EST Family planning URIC ACID JENNIFER 10/18/2018 9:04 AM EST COMPREHENSIVE METABOLIC PANEL JENNIFER 10/18/2018 9:04 AM EST CBC WITH DIFF JENNIFER 10/18/2018 9:04 AM EST PROTEIN/CREATININE RATIO URINE STAT 10/17/2018 9:48 PM EST URIC ACID STAT 10/17/2018 9:34 PM EST PT / INR STAT 10/17/2018 9:34 PM EST PARTIAL THROMBOPLASTIN TIME STAT 10/17/2018 9:34 PM EST HEPATIC FUNCTION PANEL STAT 10/17/2018 9:34 PM EST BASIC METABOLIC PANEL STAT 10/17/2018 9:34 PM EST CBC WITH DIFF STAT 10/17/2018 9:34 PM EST COMPREHENSIVE METABOLIC PANEL Timed 10/15/2018 10:05 AM EST CBC WITH DIFF Routine 10/15/2018 10:05 AM EST COMPREHENSIVE METABOLIC PANEL Timed 10/14/2018 7:58 PM EST CBC WITH DIFF Timed 10/14/2018 7:58 PM EST PATHOLOGY TISSUE REQUEST STAT 10/14/2018 11:10 AM EST SPINAL BLOCK Routine 10/14/2018 11:08 AM EST CORD BLOOD GAS VENOUS STAT 10/14/2018 11:00 AM EST CORD BLOOD GAS ARTERIAL STAT 10/14/2018 11:00 AM EST INTRAOP AIRWAY PLACEMENT Routine 10/14/2018 10:43 AM EST PRIMARY SECTION 10/14/2018 10:17 AM EST intolerance to labor, delivered, current hospitalization PARTIAL THROMBOPLASTIN TIME STAT 10/14/2018 7:37 AM EST PT / INR STAT 10/14/2018 7:37 AM EST PLATELET COUNT STAT 10/14/2018 7:37 AM EST COAGULATION SCREEN STAT 10/14/2018 7:37 AM EST MAGNESIUM LEVEL Add-On 10/14/2018 6:20 AM EST COMPREHENSIVE METABOLIC PANEL Routine 10/14/2018 6:20 AM EST GLUCOSE METER POC Routine 10/14/2018 5:21 AM EST GLUCOSE METER POC Routine 10/14/2018 2:48 AM EST GLUCOSE METER POC Routine 10/14/2018 12:16 AM EST GLUCOSE METER POC Routine 10/13/2018 11:21 PM EST GLUCOSE METER POC Routine 10/13/2018 10:24 PM EST GLUCOSE METER POC Routine 10/13/2018 9:18 PM EST URIC ACID Timed 10/13/2018 9:04 PM EST COMPREHENSIVE METABOLIC PANEL Timed 10/13/2018 9:04 PM EST CBC Timed 10/13/2018 9:04 PM EST GLUCOSE METER POC Routine 10/13/2018 8:15 PM EST GLUCOSE METER POC Routine 10/13/2018 7:12 PM EST GLUCOSE METER POC Routine 10/13/2018 6:24 PM EST GLUCOSE METER POC Routine 10/13/2018 5:20 PM EST GLUCOSE METER POC Routine 10/13/2018 4:18 PM EST GLUCOSE METER POC Routine 10/13/2018 2:34 PM EST DRUGS OF ABUSE WITH REFLEX TO CONFIRMATION, URINE Routine 10/13/2018 12:45 PM EST BB HISTORY CHECK STAT 10/13/2018 12:16 PM EST ANTIBODY SCREEN IGG STAT 10/13/2018 12:16 PM EST ABORH STAT 10/13/2018 12:16 PM EST TYPE AND SCREEN STAT 10/13/2018 12:16 PM EST HIGH RISK HCV ANTIBODY REFLEX STAT 10/13/2018 12:16 PM EST HIV AG/AB STAT 10/13/2018 12:16 PM EST SYPHILIS SCREEN WITH REFLEX RPR QUANT STAT 10/13/2018 12:16 PM EST BASIC METABOLIC PANEL STAT 10/13/2018 10:26 AM EST PARTIAL THROMBOPLASTIN TIME STAT 10/13/2018 10:26 AM EST PT / INR STAT 10/13/2018 10:26 AM EST CBC STAT 10/13/2018 10:26 AM EST HEPATIC FUNCTION PANEL STAT 10/13/2018 10:26 AM EST URIC ACID STAT 10/13/2018 10:26 AM EST PROTEIN/CREATININE RATIO URINE STAT 10/13/2018 9:39 AM EST URINALYSIS STAT 10/13/2018 9:39 AM EST PN US BIOPHYSICAL PROFILE WITHOUT NST SINGLE OR FIRST GESTATION Routine 10/11/2018 10:30 AM EST GLUCOSE METER POC Routine 10/11/2018 8:32 AM EST GLUCOSE METER POC Routine 10/11/2018 5:42 AM EST GLUCOSE METER POC Routine 10/10/2018 8:36 PM EST CBC WITH DIFF Routine 10/10/2018 5:26 PM EST HIGH RISK HCV ANTIBODY REFLEX Routine 10/10/2018 5:26 PM EST HIV AG/AB Routine 10/10/2018 5:26 PM EST SYPHILIS SCREEN WITH REFLEX RPR QUANT Routine 10/10/2018 5:26 PM EST GLUCOSE METER POC Routine 10/10/2018 5:19 PM EST DRUGS OF ABUSE WITH REFLEX TO CONFIRMATION, URINE Routine 10/10/2018 5:07 PM EST PN US BIOPHYSICAL PROFILE WITH NST SINGLE OR FIRST GESTATION Routine 10/10/2018 3:23 PM EST Gestational diabetes mellitus (GDM) in third trimester controlled on oral hypoglycemic drug POCT URINALYSIS DIPSTICK Routine 10/09/2018 3:22 PM EST Encounter for supervision of normal first in third trimester BASIC METABOLIC PANEL STAT 10/07/2018 4:42 PM EST CBC WITH DIFF STAT 10/07/2018 4:42 PM EST POCT URINALYSIS DIPSTICK Routine 10/01/2018 2:35 PM EST Encounter for supervision of other normal in third trimester URINALYSIS POC Routine 09/26/2018 5:35 PM EST POCT URINALYSIS DIPSTICK Routine 09/16/2018 1:09 PM EST Encounter for supervision of normal first in third trimester PN US OB 14+WKS, LOW RISK ANATOMY OR NEW INDICATION SINGLE GEST Routine 09/13/2018 2:20 PM EST Significant discrepancy between uterine size and clinical dates, antepartum POCT URINALYSIS DIPSTICK Routine 09/02/2018 1:45 PM EST Encounter for supervision of normal first in third trimester CBC WITH DIFF Routine 08/23/2018 11:42 AM EST Encounter for supervision of normal first in second trimester PREG GLUCOSE SCREEN Routine 08/23/2018 11:42 AM EST Encounter for supervision of normal first in second trimester POCT URINALYSIS DIPSTICK Routine 08/06/2018 2:19 PM EDT Encounter for supervision of normal first in second trimester PN US OB FOLLOW UP TRANSABDOMINAL APPROACH EACH GESTATION Routine 07/17/2018 2:10 PM EDT Encounter for supervision of normal first in second trimester POCT URINALYSIS DIPSTICK Routine 07/08/2018 1:08 PM EDT Encounter for supervision of normal first in second trimester PN US OB DETAIL ANATOMY SINGLE OR FIRST GESTATION Routine 07/05/2018 3:15 PM EDT Encounter for supervision of normal first in second trimester POCT URINALYSIS DIPSTICK Routine 06/10/2018 1:08 PM EDT Encounter for supervision of normal first in second trimester VAGINAL PANEL Routine 05/14/2018 1:41 PM EDT Encounter for supervision of normal first in first trimester ANTIBODY SCREEN IGG Routine 05/08/2018 4:15 PM EDT Encounter for supervision of normal first in first trimester HEMOGLOBIN A1C Routine 05/08/2018 4:15 PM EDT Encounter for supervision of normal first in first trimester HIV AG/AB Routine 05/08/2018 4:15 PM EDT Encounter for supervision of normal first in first trimester HEPATITIS B SURFACE ANTIGEN Routine 05/08/2018 4:15 PM EDT Encounter for supervision of normal first in first trimester SYPHILIS SCREEN WITH REFLEX RPR QUANT Routine 05/08/2018 4:15 PM EDT Encounter for supervision of normal first in first trimester RUBELLA ANTIBODY IGG Routine 05/08/2018 4:15 PM EDT Encounter for supervision of normal first in first trimester HEPATITIS C ANTIBODY IGM + IGG Routine 05/08/2018 4:15 PM EDT Encounter for supervision of normal first in first trimester DRUGS OF ABUSE WITH REFLEX TO CONFIRMATION, URINE Routine 04/19/2018 1:50 PM EDT Encounter for supervision of normal first in first trimester URINE CULTURE (NO STAIN) Routine 04/19/2018 1:50 PM EDT Encounter for supervision of normal first in first trimester US OB TRANSVAGINAL < 11 WEEKS STAT 04/05/2018 11:25 AM EDT URINALYSIS STAT 04/05/2018 10:02 AM EDT EXTRA HERRERA URINE CX STAT 04/05/2018 10:02 AM EDT CHLAMYDIA/GC BY TMA Routine 04/05/2018 9:21 AM EDT CHLAMYDIA/GC Routine 04/05/2018 9:21 AM EDT WET PREP Routine 04/05/2018 9:21 AM EDT BB HISTORY CHECK STAT 04/05/2018 9:09 AM EDT ABORH STAT 04/05/2018 9:09 AM EDT HUMAN CHORIONIC GONADOTROPIN QUANTITATIVE STAT 04/05/2018 9:00 AM EDT CBC WITH DIFF STAT 04/05/2018 9:00 AM EDT XR SHOULDER LEFT 3 VIEWS STAT 03/06/2018 4:01 PM EDT Acute pain of left shoulder US RIGHT UPPER QUADRANT STAT 10/05/2017 7:31 PM EST LIPASE LEVEL Add-On 10/05/2017 5:11 PM EST HEPATIC FUNCTION PANEL Add-On 10/05/2017 5:11 PM EST EXTRA LAVENDER Routine 10/05/2017 5:11 PM EST EXTRA TUBES PANEL Routine 10/05/2017 5:11 PM EST HCG QUALITATIVE STAT 10/05/2017 5:11 PM EST BASIC METABOLIC PANEL STAT 10/05/2017 5:11 PM EST URINALYSIS Routine 10/05/2017 5:11 PM EST SALINE LOCK IV STAT 10/05/2017 5:[address] ABD PEL ED FAST W CONTRAST STAT 11/17/2015 1:40 PM EST URINALYSIS POC Routine 11/17/2015 11:12 AM EST UA MICROSCOPIC Routine 11/17/2015 11:12 AM EST DIFFERENTIAL STAT 11/17/2015 11:10 AM EST URINALYSIS STAT 11/17/2015 11:10 AM EST COMPREHENSIVE METABOLIC PANEL STAT 11/17/2015 11:10 AM EST LIPASE LEVEL STAT 11/17/2015 11:10 AM EST CBC WITH DIFF STAT 11/17/2015 11:10 AM EST HCG QUALITATIVE STAT 11/17/2015 11:10 AM EST XR HAND LEFT PA LATERAL AND OBLIQUE JENNIFER 06/09/2010 5:24 PM EDT Results * POCT STREP A DNA (09/06/2024 5:55 PM EST) Pathologist [facility] Strep A DNA Negative Negative 09/06/2024 5:04 PM EST [facility] Swab SPECIMEN FROM THROAT / Unknown 09/06/2024 5:55 PM EST 09/06/2024 5:04 PM EST Lilliana Aly DO POINT OF CARE TEST ORDERABLE S Final Result [facility] [address] [place] [address] * HEMOGLOBIN A1C (06/07/2024 4:43 PM EDT) Only the most recent of6 resultswithin the time period is included. [facility] Hgb A1C 5.5 4.2 - 5.6 % 06/07/2024 7:06 PM EDT [facility] Est. Avg Glucose 111 mg/dL 06/07/2024 7:06 PM EDT [facility] Blood VENOUS BLOOD / Unknown Venipuncture / Unknown 06/07/2024 4:43 PM EDT 06/07/2024 4:43 PM EDT Narrative [facility] - 06/07/2024 7:06 PM EDT REFERENCE RANGE: Normal: 4.0-5.6% Pre-diabetes: 5.7-6.4% Provisional diagnosis of diabetes: >6.4% Hgb F>10% and anything which shortens red cell survival, such as hemolytic anemia, or unstable hemoglobin variants such as HbSS, HbSC, or HbCC, will lower the HbA1c value associated with a given level of glycemic control. us Ayah Bishopollie LITHOGRAPHIC STRIPPER CHEMISTRY ORDERABLES Final Res ult [facility] [address] [facility], [place] [address] [facility] [address] [place] [address] * (ABNORMAL) COMPREHENSIVE METABOLIC PANEL (06/07/2024 4:43 PM EDT) Only the most recent of13 resultswithin the time period is included. Pathologist [facility] Sodium 136 136 - 145 mmol/L 06/07/2024 6:48 PM EDT [facility] Potassium 4.5 3.5 - 5.0 mmol/L 06/07/2024 6:48 PM EDT [facility] Chloride 102 98 - 107 mmol/L 06/07/2024 6:48 PM EDT [facility] Total CO2 23 22 - 29 mmol/L 06/07/2024 6:48 PM EDT [facility] Anion Gap 11 7 - 16 mmol/L 06/07/2024 6:48 PM EDT [facility] Calcium 10.1 8.6 - 10.4 mg/dL 06/07/2024 6:48 PM EDT [facility] Glucose Lvl 109(H) 70 - 99 mg/dL 06/07/2024 6:48 PM EDT [facility] BUN 4(L) 6 - 20 mg/dL 06/07/2024 6:48 PM EDT [facility] Creatinine 0.98 0.51 - 1.30 mg/dL 06/07/2024 6:48 PM EDT [facility] Albumin 4.4 3.5 - 5.2 gm/dL 06/07/2024 6:48 PM EDT [facility] Total Protein 7.1 6.4 - 8.3 gm/dL 06/07/2024 6:48 PM EDT [facility] Bili Total 0.4 0.2 - 1.3 mg/dL 06/07/2024 6:48 PM EDT [facility] ALT 40 <=41 U/L 06/07/2024 6:48 PM EDT [facility] AST 28 <=40 U/L 06/07/2024 6:48 PM EDT [facility] Alk Phos 79 36 - 123 U/L 06/07/2024 6:48 PM EDT [facility] eGFR (CKD-EPIcr 2020) 82 >=60 mL/min/1.7 3 m2 06/07/2024 6:48 PM EDT [facility] Comment:Estimated GFR was ca lculated using the CKD-EPIcr (2020) equation refit without race. The equation is recommended by the National Kidney Foundation - [place] [employer] of Nephrology Task Force. Blood VENOUS BLOOD / Unknown Venipuncture / Unknown 06/07/2024 4:43 PM EDT 06/07/2024 4:43 PM EDT us Ayah Aremarielyt LITHOGRAPHIC STRIPPER CHEMISTRY ORDERABLES Final Res ult Performing Organization Address City/[facility]/ZIP Co de Phone Number [facility], [facility] [address], [address] [place] [id number] [facility] [address] [place] [address] * POCT EKG (01/08/2024 5:45 PM EDT) Only the most recent of2 resultswithin the time period is included. 01/08/2024 5:45 PM EDT Impressions [facility] OFF[facility] - 01/08/2024 5:45 PM EDT Normal Sinus Rhythm Normal EKG us Ayah Arehart LITHOGRAPHIC STRIPPER POINT OF CARE CARDIOLOGY Final Result SEP OFFICE * [facility] (12/27/2023 12:05 PM EDT) 12/27/2023 12:0 5 PM EDT us Unknown Provider HEMATOLOGY ORDERABLES Final Res ult * HIV AG/AB (11/12/2023 3:51 PM EST) Only the most recent of9 resultswithin the time period is included. Pathologist [facility] HIV Ag/AB Non-Reactiv e Non-Reacti ve 11/12/2023 8:51 PM EST [facility] Blood VENOUS BLOOD / Unknown Venipuncture / Unknown 11/12/2023 3:51 PM EST 11/12/2023 3:51 PM EST Ayah Springer LITHOGRAPHIC STRIPPER IMMUNOLOGY ORDERABLES Final Re sult Performing Organization Address [facility] Co de Phone Number [facility] [employer] [address] , [place] [address] * SYPHILIS SCREEN WITH REFLEX RPR QUANT (11/12/2023 3:51 PM EST) Only the most recent of9 resultswithin the time period is included. [facility] Trep Ab Index 0.03 <=0.99 Index Value 11/12/2023 8:51 PM EST [employer] Comment: < 1.00 - Non-Reactive >=1.00 - Reactive NOTE: All reactive results will be reflexed to Quantitative Non-Treponemal(RPR)test. Blood VENOUS BLOOD / Unknown Venipuncture / Unknown 11/12/2023 3:51 PM EST 11/12/2023 3:51 PM EST us Ayah Springer LITHOGRAPHIC STRIPPER CHEMISTRY ORDERABLES Final Res ult Performing Organization Address [facility] Co de Phone Number [employer] [address] , [place] [address] * (ABNORMAL) HSV TYPE 1,2, IGG -REF LAB (11/12/2023 3:51 PM EST) [facility] HSV 1 IgG 27.10(H) <=0.89 IV 11/14/2023 7:14 AM EST [employer] Comment: REFERENCE INTERVAL: HSV 1 Glycoprotein G Ab, IgG 0.89 IV or less ...... Negative - No significant level of detectable IgG antibody to HSV type 1 glycoprotein G. 0.90 - 1.09 IV ....... Equivocal - Questionable presence of IgG antibody to HSV type 1 glycoprotein G. Repeat testing in 10 - 14 days may be helpful. 1.10 IV or greater ... Positive - IgG antibody to HSV type 1 glycoprotein G detected, which may indicate a current or past HSV infection. Individuals infected with HSV may not exhibit detectable IgG antibody to type-specific HSV antigens 1 and 2 in early stages of infection. Detection of antibody presence in these cases may only be possible using a non-type specific screening test. HSV 2 IgG 0.05 <=0.89 IV 11/14/2023 7:14 AM EST [facility] Comment: REFERENCE INTERVAL: HSV 2 Glycoprotein G Ab, IgG 0.89 IV or less ....... Negative - No significant level of detectable IgG antibody to HSV type 2 glycoprotein G. 0.90 - 1.09 IV ........ Equivocal - Questionable presence of IgG antibody to HSV type 2 glycoprotein G. Repeat testing in 10 - 14 days may be helpful. 1.10 IV or greater .... Positive - IgG antibody to HSV type 2 glycoprotein G detected, which may indicate a current or past HSV infection. Individuals infected with HSV may not exhibit detectable IgG antibody to type-specific HSV antigens 1 and 2 in early stages of infection. Detection of antibody presence in these cases may only be possible using a non-type specific screening test. Performed By: [facility] [address] [place] [id number] Garage Manager: Jovany Lindsey MD, PhD CLIA Number: [id number] Blood VENOUS BLOOD / Unknown Venipuncture / Unknown 11/12/2023 3:51 PM EST 11/12/2023 3:51 PM EST us Ayah Springer LITHOGRAPHIC STRIPPER IMMUNOLOGY ORDERABLES Final Re sult [facility] [address] [place] [id number] * ACUTE HEPATITIS PANEL (11/12/2023 3:51 PM EST) Only the most recent of2 resultswithin the time period is included. Hep Bs Ag Non-Reacti ve Non-Reacti ve 11/12/2023 8:54 PM EST [facility] Hep B Core IgM Non-Reacti ve Non-Reacti ve 11/12/2023 8:54 PM EST [facility], [facility] Hep A IgM Non-Reacti ve Non-Reacti ve 11/12/2023 8:54 PM EST [facility], [facility] Hep C Ab Non-Reacti ve Non-Reacti ve 11/12/2023 8:54 PM EST [facility]REF[facility]ED [facility], [facility] Blood VENOUS BLOOD / Unknown Venipuncture / Unknown 11/12/2023 3:51 PM EST 11/12/2023 3:51 PM EST us Ayah Spirnger LITHOGRAPHIC STRIPPER CHEMISTRY ORDERABLES Final Res ult [facility], [facility] [address] [facility], [place] [address] * TRICHOMONAS VAGINALIS BY TMA (PAP PANEL) (11/12/2023 3:48 PM EST) Trichomonas vaginalis by TMA Not Detected Not Detected 11/13/2023 2:55 PM EST [facility] Thin Prep SPECIMEN FROM UTERINE CERVIX / Unknown 11/12/2023 3:48 PM EST 11/12/2023 3:48 PM EST Narrative [facility] - 11/13/2023 2:55 PM EST Test methodology is whitewater river guide mediated amplification (TMA) using the Aptima Trichomonas vaginalis assay from [employer]. A negative result does not completely rule out a Trichomonas vaginalis infection due to potential inhibitors or levels present below the limit of detection of this assay. Results are dependent on proper collection and transport of specimen. This test is indicated for medical purposes only and should not be used for legal or forensic purposes. The assay has been cleared by the FDA to test the following specimens from symptomatic or asymptomatic women: clinician-collected endocervical swabs, clinician-collected vaginal swabs, and specimens collected in PreservCyt solution. Testing on first-catch male and female urine is not FDA-approved by this methodology; performance characteristics of the assay on these sample types were determined by [facility]. Ayah Springer APRN MICROBIOLOGY - GENERAL ORDERAB LES Final Result [facility] [address] [facility] , [place] [address] * (ABNORMAL) MOLECULAR VAGINITIS PANEL (MVP) (11/12/2023 3:48 PM EST) Only the most recent of5 resultswithin the time period is included. Bacterial Vaginosis Detected(A) Not Detected 11/13/2023 4:45 AM EST [facility] Comment:Abnormal/Unbalanced vaginal microbiome as indicated by decreased concentration of healthy Lactobacillus crispatus and/or Lactobacillus jensenii with significant increased concentration of unhealthy G. vaginalis, A. vaginae, BVAB, Megasphaera-1 and/or Clostridiales. Nakaseomyces glabrata (previously Hemalatha glabrata) Not Detected Not Detected 11/13/2023 4:45 AM EST [facility] Hemalatha group Not Detected Not Detected 11/13/2023 4:45 AM EST [facility] Comment:C. albicans, C. trop icalis, C. parapsilosis, and/or C. dubliniensis NOT detected. Hemalatha krusei Not Detected Not Detected 11/13/2023 4:45 AM EST [facility] Trichomonas vaginalis Not Detected Not Detected 11/13/2023 4:45 AM EST [facility] Swab SPECIMEN FROM VAGINA / Unknown 11/12/2023 3:48 PM EST 11/12/2023 3:48 PM EST Narrative [facility] - 11/13/2023 4:45 AM EST Test performed using the [employer] MAX Vaginal Panel, a real-time polymerase chain (PCR) molecular nucleic acid amplification test. Ayah Springer APRN MICROBIOLOGY - GENERAL ORDERAB LES Final Result Performing Organization Address City/[facility]/ZIP Co de Phone Number [facility] [address] [facility] , [place] [address] * GC CHLAMYDIA THIN PREP (11/12/2023 3:48 PM EST) Only the most recent of2 resultswithin the time period is included. Chlamydia trachomatis Not Detected Not Detected 11/13/2023 2:40 PM EST [facility] [employer] [facility] Neisseria gonorrhoeae Not Detected Not Detected 11/13/2023 2:40 PM EST [facility] [employer] [facility] Thin Prep SPECIMEN FROM UTERINE CERVIX / Unknown 11/12/2023 3:48 PM EST 11/12/2023 3:48 PM EST Narrative [facility]ED [facility] [facility] - 11/13/2023 2:40 PM EST Testing methodology is [place] river guide mediated amplification (TMA) using the Aptima Combo 2 assay from [employer]. A negative result does not completely rule out a Chlamydia trachomatis or Neisseria gonorrhoeae infection due to potential inhibitors or levels present below the limit of detection by this assay. Results are dependent on proper collection and transport of specimen. This test is indicated for medical purposes only and should not be used for legal or forensic purposes. The performance characteristics of this assay were validated by the testing laboratory. This assay is FDA cleared to test the following specimens: clinician-collected endocervical, vaginal, male urethral swab specimens, rectal swabs, and throat/pharyngeal swabs; patient collected vaginal specimens within a clinic setting; Thin Prep Specimens in PreservCyt Solution; and first-stream, unpreserved male and female urine specimens. Detailed methodology is available upon request. Ayah Springer APRN MICROBIOLOGY - GENERAL ORDERAB LES Final Result [facility] [employer] [address] , [address] [place] [phone] * (ABNORMAL) MANAGER DIESEL CYTOLOGY REQUEST (PAP ONLY) (11/12/2023 12:00 PM EST) Only the most recent of2 resultswithin the time period is included. CASE REPORT Gynecologic Cytology Report Case: [id number] Authorizing Provider: Ayah Springer APRN Collected: 11/12/2023 1200 Ordering Location: [facility] Received: 11/12/2023 1548 First Screen: Geo Xavier, CT Pathologist: Kelsey Chaudhary MD Specimen: LIQUID-BASED PAP - CERVICAL/ENDOCERV ICAL, Cervix, Endocervical 11/21/2023 3:58 PM EST [facility] PAP FINAL DIAGNOSIS Low grade squamous intraepithelial lesion(A) 11/21/2023 3:58 PM EST [facility] at 1558 EST MICROSCOPIC DESCRIPTION Microscopic examination is performed and the findings corroborate the diagnosis. 11/21/2023 3:58 PM EST [facility] PAP SMEAR ADEQUACY Satisfactory for evaluation 11/21/2023 3:58 PM EST [facility] PAP ORGANISMS NOTED Shift in tanmay suggestive of bacterial vaginosis. 11/21/2023 3:58 PM EST [facility] ENDOCERVICAL T-ZONE Transformation zone absent. 11/21/2023 3:58 PM EST [facility] EMBEDDED IMAGES 3:58 PM EST [facility] PAP DISCLAIMER The Pap Smear is a screening test that aids in the detection of cervical cancer and cancer precursors. Both false positive and false negative results can occur. The test should be used at regular intervals, and positive results should be confirmed before definitive therapy. Processed using the [employer] Automated cytology screening device (BuzzStarter). 11/21/2023 3:58 PM EST [facility] Thin Prep ENDOCERVICAL STRUCTURE / Unknown 11/12/2023 12:00 PM EST 11/12/2023 3:48 PM EST us Ayah Springer LITHOGRAPHIC STRIPPER CYTOLOGY ORDERABLES Final Resu lt [facility] [facility] [address] [place], [place] [id number] * CT ABDOMEN PELVIS W CONTRAST (09/21/2023 5:26 PM EST) Anatomical Region Laterality Modality Abdomen, Chest, Pelvis, Hip Comp uted Tomography 09/21/2023 5:26 PM EST Impressions 09/21/2023 5:37 PM EST No acute abnormality of the abdomen or pelvis. - Note: Radiology results need to be interpreted within a comprehensive clinical context. If you have questions about the radiology report, please contact the office of the ordering clinician. Narrative 09/21/2023 5:[address] ABDOMEN AND PELVIS WITH CONTRAST, 09/21/2023 5:26 PM CLINICAL HISTORY: R10.11-Right upper quadrant astk-OFK-57-CM R11.2-Nausea with vomiting, pjmjoauuymw-DGS-03-CM R19.7-Diarrhea, pvxwhqzugbc-JBP-47-CM. COMPARISON: 01/01/2022 PROCEDURE COMMENTS: Multi-detector CT of the abdomen and pelvis with multiplanar reformatting. Isovue 370 IV contrast given along with radiodense GI contrast as recorded in EPIC. Dose 1 : CT DLP Total : 565.5 mGycm DLP Spiral Max : 565.5 mGycm Maximum CTDI Vol : 11.8 mGy FINDINGS: LOWER THORAX: Lung bases unremarkable. ABDOMEN AND PELVIS: Liver, spleen, pancreas, adrenal glands, and kidneys unremarkable. No hydronephrosis. No biliary system obstruction or acute inflammatory process. No bowel obstruction. No evidence of appendicitis or other acute inflammatory process. No abnormal mass, fluid, or adenopathy in the pelvis. No acute osseous abnormality. Procedure Note Dorian Bah MD - 09/21/2023 CT ABDOMEN AND PELVIS WITH CONTRAST, 09/21/2023 5:26 PM CLINICAL HISTORY: R10.11-Right upper quadrant knxk-TCP-28-CM R11.2-Nausea with vomiting, zejedkyzcmd-PUN-85-CM R19.7-Diarrhea, logrovksumg-OPB-77-CM. COMPARISON: 01/01/2022 PROCEDURE COMMENTS: Multi-detector CT of the abdomen and pelvis with multiplanar reformatting. Isovue 370 IV contrast given along withradiodense GI contrast as recorded in EPIC. Dose 1 : CT DLP Total : 565.5 mGycm DLP Spiral Max : 565.5 mGycm Maximum CTDI Vol : 11.8 mGy FINDINGS: LOWER THORAX: Lung bases unremarkable. ABDOMEN AND PELVIS: Liver, spleen, pancreas, adrenal glands, and kidneys unremarkable. No hydronephrosis. No biliary system obstruction oracute inflammatory process. No bowel obstruction. No evidence of appendicitis or other acuteinflammatory process. No abnormal mass, fluid, or adenopathy in the pelvis. No acute osseous abnormality. IMPRESSION: No acute abnormality of the abdomen or pelvis. - Note: Radiology results need to be interpreted within a comprehensiveclinical context. If you have questions about the radiology report, please contactthe office of the ordering clinician. us Armida Hale LITHOGRAPHIC STRIPPER IMG CT ORDERABLES Final Resu lt * (ABNORMAL) CBC WITH DIFF (09/21/2023 2:15 PM EST) Only the most recent of18 resultswithin the time period is included. WBC 10.8(H) 3.7 - 10.3 x10(3)/mcL 09/21/2023 4:45 PM EST [facility] RBC 5.42(H) 3.90 - 5.20 x10(6)/mcL 09/21/2023 4:45 PM EST [facility] Hgb 15.3 11.2 - 15.7 g/dL 09/21/2023 4:45 PM EST [facility] Hct 46.2(H) 34.0 - 45.0 % 09/21/2023 4:45 PM EST [facility] MCV 85.2 80.0 - 100.0 fL 09/21/2023 4:45 PM EST [facility] MCH 28.2 26.0 - 34.0 pg 09/21/2023 4:45 PM EST [facility] MCHC 33.1 30.7 - 35.5 g/dL 09/21/2023 4:45 PM EST [facility] RDW 13.0 <=14.9 % 09/21/2023 4:45 PM EST [facility] Platelet 342 155 - 369 x10(3)/mcL 09/21/2023 4:45 PM EST [facility] MPV 10.8 8.8 - 12.5 fL 09/21/2023 4:45 PM EST [facility] Neut Percent 58.7 % 09/21/2023 4:45 PM EST [facility] Comment:Neutrophils equals s egs plus bands Imm Gran% 0.4 % 09/21/2023 4:45 PM EST [facility] Comment:Automated count of m etamyelocytes, myelocytes and promyelocytes. Lymph Percent 30.3 % 09/21/2023 4:45 PM EST [facility] Forrest Percent 9.7 % 09/21/2023 4:45 PM EST [facility] Eos Percent 0.4 % 09/21/2023 4:45 PM EST [facility] Baso Percent 0.5 % 09/21/2023 4:45 PM EST [facility] Neut # 6.3(H) 1.6 - 6.1 x10(3)/mcL 09/21/2023 4:45 PM EST [facility] Comment:Neutrophils equals s egs plus bands IMMGRAN# 0.0 0.0 - 0.1 x10(3)/mcL 09/21/2023 4:45 PM EST [facility] Comment:Automated count of m etamyelocytes, myelocytes and promyelocytes. An absolute IG <0.1 is reported as 0.0. Lymph # 3.3 1.2 - 3.9 x10(3)/mcL 09/21/2023 4:45 PM EST [facility] Forrest # 1.1(H) 0.3 - 0.9 x10(3)/mcL 09/21/2023 4:45 PM EST [facility] Eos# 0.0 0.0 - 0.5 x10(3)/mcL 09/21/2023 4:45 PM EST [facility] Baso # 0.1 0.0 - 0.1 x10(3)/mcL 09/21/2023 4:45 PM EST [facility] Blood VENOUS BLOOD / Unknown Venipuncture / Unknown 09/21/2023 2:15 PM EST 09/21/2023 2:16 PM EST us Armida Hale LITHOGRAPHIC STRIPPER HEMATOLOGY ORDERABLES Final Result [facility] [address] [facility] , [place] [address] * MRI BRAIN W WO CONTRAST (09/08/2023 2:41 PM EST) Anatomical Region Laterality Modality Head Magnetic Resonan ce 09/08/2023 2:41 PM EST Impressions 09/08/2023 7:45 PM EST No acute or enhancing intracranial abnormality. - Note: Radiology results need to be interpreted within a comprehensive clinical context. If you have questions about the radiology report, please contact the office of the ordering clinician. Narrative 09/08/2023 7:45 PM EST MRI BRAIN W WO CONTRAST 09/08/2023 2:41 PM CLINICAL HISTORY: G43.909-Migraine, unspecified, not intractable, without status gdzrooipejs-WOK-31-CM F07.81-Postconcussional vijlihot-LNY-23-CM. COMPARISON: CT head without IV contrast 12/10/2022 PROCEDURE COMMENTS: Multiplanar multiecho MR imaging of the brain per protocol before and following IV contrast administration. Gadolinium contrast given as recorded in Epic. FINDINGS: Acute Ischemic Change: No evidence of restricted diffusion to suggest an acute infarct. Hemorrhage: No evidence of prior parenchymal hemorrhage on the gradient echo images. Mass Effect / Mass Lesion: No mass effect. No evidence of an intracranial mass or extra-axial fluid collection. Parenchyma: There is no abnormal enhancement on postcontrast imaging. The brain parenchyma is otherwise within normal limits of signal intensity and morphology. Ventricles: Normal caliber and morphology. Skull Base: Hypothalamic and pituitary region are grossly normal. Craniocervical junction is normal. No marrow replacement process. Vasculature: Major intracranial arterial structures and dural venous sinuses show typical flow void, suggesting patency by spin echo criteria. Sinuses: Mild chronic mucosal thickening involving the right frontal sinus. Minimal chronic mucosal thickening involving the ethmoid air cells. Visualized remaining paranasal sinuses and mastoid air cells are grossly clear. Orbits: Grossly normal. Soft Tissues: The visualized extracranial soft tissues are grossly normal. Procedure Note Gurdeep Ugalde MD - 09/08/2023 MRI BRAIN W WO CONTRAST 09/08/2023 2:41 PM CLINICAL HISTORY: G43.909-Migraine, unspecified, not intractable,without status phfolqonnff-UTJ-40-CM F07.81-Postconcussional sohlpecw-MTZ-15-CM. COMPARISON: CT head without IV contrast 12/10/2022 PROCEDURE COMMENTS: Multiplanar multiecho MR imaging of the brain perprotocol before and following IV contrast administration. Gadolinium contrast givenas recorded in Epic. FINDINGS: Acute Ischemic Change: No evidence of restricted diffusion to suggest anacute infarct. Hemorrhage: No evidence of prior parenchymal hemorrhage on the gradientecho images. Mass Effect / Mass Lesion: No mass effect. No evidence of an intracranialmass or extra-axial fluid collection. Parenchyma: There is no abnormal enhancement on postcontrast imaging. Thebrain parenchyma is otherwise within normal limits of signal intensity andmorphology. Ventricles: Normal caliber and morphology. Skull Base: Hypothalamic and pituitary region are grossly normal.Craniocervical junction is normal. No marrow replacement process. Vasculature: Major intracranial arterial structures and dural venoussinuses show typical flow void, suggesting patency by spin echo criteria. Sinuses: Mild chronic mucosal thickening involving the right frontalsinus. Minimal chronic mucosal thickening involving the ethmoid air cells.Visualized remaining paranasal sinuses and mastoid air cells are grossly clear. Orbits: Grossly normal. Soft Tissues: The visualized extracranial soft tissues are grosslynormal. IMPRESSION: No acute or enhancing intracranial abnormality. - Note: Radiology results need to be interpreted within a comprehensiveclinical context. If you have questions about the radiology report, please contactthe office of the ordering clinician. Eli Solis MD IMG MRI ORDERABLES Final Result * (ABNORMAL) WOUND CULTURE (STAIN INCLUDED) (08/02/2023 7:13 PM EDT) Culture Positive Growth(A) 08/09/2023 12:33 PM EDT [facility] Culture Very sparse growth of Mixed Skin tanmay SUSCEPTIBI LITY RESULT 08/09/2023 12:33 PM EDT [facility] Comment:No further workup. Stain Few WBCs 08/09/2023 12:33 PM EDT [facility] Stain No organisms seen 08/09/2023 12:33 PM EDT [facility] Swab RIGHT BREAST STRUCTURE / Unknown 08/02/2023 7:13 PM EDT 08/02/2023 7:13 PM EDT Yarely Prince PA-C MICROBIOLOGY - GENERAL O RDERABLES Final Result [facility] [address] [facility] , [place] [address] * XR LUMBAR SPINE AP LATERAL AND OBLIQUES (06/25/2023 4:10 PM EDT) Anatomical Region Laterality Modality L-spine Radiographic Maria Luz ging 06/25/2023 4:10 PM EDT Impressions 06/25/2023 4:52 PM EDT 1. No acute abnormality of the lumbar spine. 2. \Mild multilevel degenerative disc disease most evident at L5-S1. - Note: Radiology results need to be interpreted within a comprehensive clinical context. If you have questions about the radiology report, please contact the office of the ordering clinician. Narrative 06/25/2023 4:52 PM EDT LUMBAR SPINE AP, LATERAL, AND BILATERAL OBLIQUES, 06/25/2023 4:10 PM CLINICAL HISTORY: M54.50-Low back pain, dyeadygpvze-MWO-43-CM G89.29-Other chronic zjhx-TMA-25-CM M51.36-Other intervertebral disc degeneration, lumbar xggfaa-RME-58-CM COMPARISON: Radiographs of the lumbar spine dated 12/19/2021 PROCEDURE COMMENTS: AP,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 FINDINGS: LOWER THORAX: Lung bases are clear. ABDOMEN AND PELVIS: Liver, spleen, pancreas, gallbladder, adrenal glands and kidneys are normal. Small bowel is nondistended. Appendix is abnormal with circumferential thickened mirza and diameter up to 1.4 cm. There is low-attenuation fluid in its lumen without hyperdense appendicolith. There is hazy periappendiceal and right lower quadrant mesenteric edema. No evidence of perforation free fluid or localized fluid collection. : An female reproductive organs are normal. Bladder is only minimally filled. No notable adenopathy. Thoracic spine and upper lumbar endplates have small irregular Schmorl's node defects. Procedure Note Francia Her MD - 01/01/2022 CT ABDOMEN AND PELVIS WITH CONTRAST (FAST): 01/01/2022 4:00 PM CLINICAL HISTORY: 21-year-old with -lower abdominal pain. COMPARISON: 11/17/2015 PROCEDURE COMMENTS: 5 mm axial images obtained with coronal and sagittal 5mm reconstructions following administration 100 mL Isovue 370 IV and waterfor oral contrast. FINDINGS: LOWER THORAX: Lung bases are clear. ABDOMEN AND PELVIS: Liver, spleen, pancreas, gallbladder, adrenal glands and kidneys arenormal. Small bowel is nondistended. Appendix is abnormal with circumferentialthickened mirza and diameter up to 1.4 cm. There is low-attenuation fluid in itslumen without hyperdense appendicolith. There is hazy periappendiceal and rightlower quadrant mesenteric edema. No evidence of perforation free fluid orlocalized fluid collection. : An female reproductive organs are normal. Bladder is only minimallyfilled. No notable adenopathy. Thoracic spine and upper lumbar endplates have small irregular Schmorl'snode defects. IMPRESSION: 1. Acute uncomplicated appendicitis. Findings called and directly communicated with Dr. Nabeel Cortes. - - us Lars Cortes MD IMG CT ORDERABLES Final Resu lt * (ABNORMAL) URINALYSIS (01/01/2022 3:12 PM EDT) Only the most recent of9 resultswithin the time period is included. UA Color Yellow 01/01/2022 3:30 PM EDT [facility] UA Appear Clear Clear 01/01/2022 3:30 PM EDT [facility] UA Glucose Trace (30-50 mg/dL) Negative mg/dL 01/01/2022 3:30 PM EDT [facility] UA Ketones Negative Negative mg/dL 01/01/2022 3:30 PM EDT [facility] UA Blood Negative Negative 01/01/2022 3:30 PM EDT [facility] UA pH 6.0 5.0 - 8.0 pH 01/01/2022 3:30 PM EDT [facility] UA Protein Trace (10-20 mg/dL) Negative mg/dL 01/01/2022 3:30 PM EDT [facility] UA Urobilinogen Normal <=1 mg/dL 3:30 PM EDT [facility] UA Bili Negative Negative 01/01/2022 3:30 PM EDT [facility] UA Nitrite Negative Negative 01/01/2022 3:30 PM EDT [facility] UA Leuk Est 3+ (250 Rhoda/mcl)(A) Negative 01/01/2022 3:30 PM EDT [facility] UA Spec Grav 1.030 1.001 - 1.035 no units 01/01/2022 3:30 PM EDT [facility] Comment:Reference range yuval d for random specimens only. UA WBC 42(H) 0 - 4 /HPF 01/01/2022 3:30 PM EDT [facility] UA RBC 1 0 - 3 /HPF 01/01/2022 3:30 PM EDT [facility] UA Squam Epi 4+ /LPF 01/01/2022 3:30 PM EDT [facility] UA Mucus Trace /LPF 01/01/2022 3:30 PM EDT [facility] UA Bacteria 1+(A) Negative /HPF 01/01/2022 3:30 PM EDT [facility] UA Trans Epi 1(H) <=0 /HPF 01/01/2022 3:30 PM EDT [facility] Urine 01/01/2022 3:12 PM EDT 01/01/2022 3:12 PM EDT us Lars Cortes MD URINE ORDERABLES Final Resul t Performing Organization Address City/[facility] Co de Phone Number [facility] [address] [place] [address] , [place] [address] * WET PREP (01/01/2022 3:07 PM EDT) Only the most recent of2 resultswithin the time period is included. Trichomonas, Wet Prep Trichomonas not seen. Trichomonas not seen. 01/01/2022 3:50 PM EDT [facility] Yeast, Wet Prep Yeast not seen. Yeast not seen. 01/01/2022 3:50 PM EDT [facility] Wet Prep WBC's seen. None 01/01/2022 3:50 PM EDT [facility] Swab SPECIMEN FROM VAGINA / Unknown 01/01/2022 3:07 PM EDT 01/01/2022 3:41 PM EDT us Merle Guaman APRN MICROBIOLOGY - GENERAL ORD ERABLES Final Result Performing Organization Address City/[facility]/ZIP Co de Phone Number [facility], [address] , [place] [address] * (ABNORMAL) CBC (01/01/2022 3:02 PM EDT) Only the most recent of7 resultswithin the time period is included. WBC 10.7(H) 3.7 - 10.3 x10(3)/mcL 01/01/2022 3:15 PM EDT [facility] RBC 4.98 3.90 - 5.20 x10(6)/mcL 01/01/2022 3:15 PM EDT [facility] Hgb 14.2 11.2 - 15.7 g/dL 01/01/2022 3:15 PM EDT [facility] Hct 42.0 34.0 - 45.0 % 01/01/2022 3:15 PM EDT [facility] MCV 84.3 80.0 - 100.0 fL 01/01/2022 3:15 PM EDT [facility] MCH 28.5 26.0 - 34.0 pg 01/01/2022 3:15 PM EDT [facility] MCHC 33.8 30.7 - 35.5 g/dL 01/01/2022 3:15 PM EDT [facility] RDW 13.3 <=14.9 % 01/01/2022 3:15 PM EDT [facility] Platelet 269 155 - 369 x10(3)/mcL 01/01/2022 3:15 PM EDT [facility] MPV 9.7 8.8 - 12.5 fL 01/01/2022 3:15 PM EDT [facility] Blood VENOUS BLOOD / Unknown Venipuncture / Unknown 01/01/2022 3:02 PM EDT 01/01/2022 3:11 PM EDT us Lars Cortes MD HEMATOLOGY ORDERABLES Final Result [facility] [address] [place] [address] * XR LUMBAR SPINE AP AND LATERAL (12/19/2021 1:05 PM EST) Anatomical Region Laterality Modality L-spine Radiographic Maria Luz ging 12/19/2021 1:05 PM EST Impressions 12/19/2021 1:31 PM EST Mild degenerative disc disease L5-S1. No fracture or dislocation. Narrative 12/19/2021 1:31 PM EST XR LUMBAR SPINE AP AND LATERAL Clinical: M54.50-Low back pain, ihfgddwnipe-KWZ-52-CM G89.29-Other chronic qviw-BPI-02-CM Procedure Note Karlo Goldman MD - 12/19/2021 XR LUMBAR SPINE AP AND LATERAL Clinical: M54.50-Low back pain, uqbagyssydl-QSX-30-CM G89.29-Other chronic vfxc-LWW-50-CM IMPRESSION: Mild degenerative disc disease L5-S1. No fracture or dislocation. Chata Lopez MD [facility] ORDERA BLES Final Result * XR THORACIC SPINE AP AND LATERAL (12/19/2021 1:05 PM EST) Anatomical Region Laterality Modality T-spine Radiographic Maria Luz ging 12/19/2021 1:05 PM EST Impressions 12/19/2021 1:36 PM EST Examination is limited in that the spine above the level of T5 is not visualized. Comparison 05/24/2019. Stable moderate multilevel degenerative disc disease throughout the thoracic spine as visualized. No definite fracture. Narrative 12/19/2021 1:36 PM EST XR THORACIC SPINE AP AND LATERAL Clinical: M54.6-Pain in thoracic ahjvk-IJV-51-CM G89.29-Other chronic covz-FRM-67-CM Procedure Note Karlo Goldman MD - 12/19/2021 XR THORACIC SPINE AP AND LATERAL Clinical: M54.6-Pain in thoracic ayhvo-DQS-16-CM G89.29-Other chronic jqkk-RGS-41-CM IMPRESSION: Examination is limited in that the spine above the level of T5 is not visualized. Comparison 05/24/2019. Stable moderate multilevel degenerative disc disease throughout thethoracic spine as visualized. No definite fracture. Chata Lopez MD IMG DIAGNOSTIC IMAGING ORDERA BLES Final Result * DRUG CONFIRMATION, CANNABINOIDS - URINE (11/30/2021 3:52 PM EST) Only the most recent of2 resultswithin the time period is included. THC <10 Cutoff 10 ng/mL ng/mL 12/01/2021 11:43 PM EST [facility] THC Glucuronide <10 Cutoff 10 ng/mL ng/mL 12/01/2021 11:43 PM EST [facility] Urine URINE SPECIMEN COLLECTION / Unknown 11/30/2021 3:52 PM EST 11/30/2021 3:52 PM EST Aide Petit MD URINE ORDERABLES Final Result [facility] [address] [facility] , [place] [address] * (ABNORMAL) DRUGS OF ABUSE WITH REFLEX TO CONFIRMATION, URINE (11/30/2021 3:52 PM EST) Only the most recent of6 resultswithin the time period is included. 6 AM (Heroin) Absent Cutoff 10 ng/mL 11/30/2021 7:46 PM EST [facility] Amphetamines Absent Cutoff 500 ng/mL 11/30/2021 7:46 PM EST [facility] Barbiturates Absent Cutoff 200 ng/mL 11/30/2021 7:46 PM EST [facility] Benzodiazepines Absent Cutoff 200 ng/mL 11/30/2021 7:46 PM EST [facility] Buprenorphine Absent Cutoff 5 ng/mL 11/30/2021 7:46 PM EST [facility] Cannabinoid Metabolite Presumptive Pos(A) Cutoff 50 ng/mL 11/30/2021 7:46 PM EST [facility] Cocaine Metabolite Absent Cutoff 150 ng/mL 11/30/2021 7:46 PM EST [facility] Fentanyl Absent Cutoff 2 ng/mL 11/30/2021 7:46 PM EST [facility] Methadone and Metabolite Absent Cutoff 300 ng/mL 11/30/2021 7:46 PM EST [facility] Opiate Absent Cutoff 300 ng/mL 11/30/2021 7:46 PM EST [facility] Oxycodone Lvl Absent Cutoff 100 ng/mL 11/30/2021 7:46 PM EST [facility] Urine Creatinine 78.9 mg/dL 11/30/19 7:46 PM EST [facility] Comment: Greater than 20: Consistent with valid sample Greater than 2 but less than 20: Possible dilution Less than 2: Questionable valid sample Urine URINE SPECIMEN COLLECTION / Unknown 11/30/2021 3:52 PM EST 11/30/2021 3:52 PM EST Narrative [facility] - 11/30/2021 7:46 PM EST These drug classes have been qualitatively screened by immunoassay and are for medical purposes only. Results should not be used for non-medical purposes. Results reported as presumptive positive will be sent for confirmation. Due to possible factors, such as, dilute/adulterated urine, concentration of drug/metabolite being below the cut-off, or antibody specificity of test reagent, a negative result does not rule out drug use. These results are only valid for urine specimens. Any contamination with vaginal pool/amniotic fluid could cause erroneous results. Aide Petit MD URINE ORDERABLES Final Result Performing Organization Address [facility] Co de Phone Number [address] , [place] [address] * CYCLIC CITRULLINATED PEPTIDE ANTIBODY, IGG (11/30/2021 3:26 PM EST) Pathologist [facility] CCP Ab, IgG <0.5 U/mL 11/30/2021 8:57 PM EST [facility] Comment: Negative: < 5.0 U/mL Positive: > or = 5.0 U/mL Blood Venipuncture / Unknown 11/30/2021 3:26 PM EST 11/30/2021 3:26 PM EST Chata Lopez MD IMMUNOLOGY ORDERABLES Final R esult Performing Organization Address [facility] Co de Phone Number [facility] , [place] [address] * (ABNORMAL) VITAMIN D 25 HYDROXY (11/30/2021 3:26 PM EST) Only the most recent of2 resultswithin the time period is included. [facility] Vit D 25 OH 29.9(L) 30.0 - 150.0 ng/mL 11/30/2021 8:15 PM EST [facility] Comment: Preferred: >= 30 ng/mL Insufficient: 21-29 ng/mL Deficient <= 20 ng/mL Possible Toxicity: >150 ng/mL Samples should not be taken from patients receiving therapy with high biotin doses (i.e. > 5 mg/day) until at least 8 hours following the last biotin administration. Blood VENOUS BLOOD / Unknown Venipuncture / Unknown 11/30/2021 3:26 PM EST 11/30/2021 3:26 PM EST Aide Petit MD CHEMISTRY ORDERABLES Final Resu lt Performing Organization Address [facility] de Phone Number [facility] [employer] [facility] [address] [facility] , [place] [address] * SEDIMENTATION RATE AUTOMATED (11/30/2021 3:26 PM EST) Only the most recent of2 resultswithin the time period is included. [facility] Sed Rate 1 0 - 20 mm/hr 11/30/2021 7:26 PM EST [facility] Blood Venipuncture / Unknown 11/30/2021 3:26 PM EST 11/30/2021 3:26 PM EST Chata Lopez MD HEMATOLOGY ORDERABLES Final R esult Performing Organization Address [facility] Co de Phone Number [facility] [employer] [facility] [address] [facility] , [place] [address] * RHEUMATOID FACTOR QUANTITATIVE (11/30/2021 3:26 PM EST) [facility] RF Quant <10 <14 IU/mL 11/30/2021 8:0 4 PM EST [facility] Blood Venipuncture / Unknown 11/30/2021 3:26 PM EST 11/30/2021 3:26 PM EST Chata Lopez MD IMMUNOLOGY ORDERABLES Final R esult Performing Organization Address [facility] Co de Phone Number [facility] [employer] [facility] [address] [facility] , [place] [address] * C-REACTIVE PROTEIN (11/30/2021 3:26 PM EST) Only the most recent of2 resultswithin the time period is included. Pathologist [facility] CRP <3.00 <=5.00 mg/L 11/30/2021 7:59 PM EST [facility] Blood Venipuncture / Unknown 11/30/2021 3:26 PM EST 11/30/2021 3:26 PM EST Chata Lopez MD CHEMISTRY ORDERABLES Final Re sult Performing Organization Address [facility] Phone Number [facility] [employer] [facility] [address] [facility] , [place] [address] * URIC ACID (11/30/2021 3:26 PM EST) Only the most recent of6 resultswithin the time period is included. [facility] Uric Acid 3.8 2.4 - 5.7 mg/dL 11/30/2021 7:58 PM EST [facility] Blood Venipuncture / Unknown 11/30/2021 3:26 PM EST 11/30/2021 3:26 PM EST Result [facility] Chata Lopez MD CHEMISTRY ORDERABLES Final Re sult Performing Organization Address [facility] Co de Phone Number [facility] [employer] [facility] [address] [facility] , [place] [address] * THYROID STIMULATING HORMONE (11/30/2021 3:26 PM EST) Pathologist [facility] TSH 0.701 0.270 - 4.200 mcIU/mL 11/30/2021 8:04 PM EST [facility] Blood VENOUS BLOOD / Unknown Venipuncture / Unknown 11/30/2021 3:26 PM EST 11/30/2021 3:26 PM EST Narrative PREFERRED [facility], [facility] - 11/30/2021 8:04 PM EST Ingestion of kyle doses of biotin (>5 mg/day) taken within 8 hours of drawing blood sample can interfere with this immunoassay test. us Aide Petit MD CHEMISTRY ORDERABLES Final [facility] Performing Organization Address [facility] Phone Number [facility] [employer] [address] , [place] [address] * T4, FREE (THYROXINE) (11/30/2021 3:26 PM EST) Only the most recent of2 resultswithin the time period is included. Free T4 1.34 0.80 - 1.80 ng/dL 11/30/2021 8:[address] [facility] Blood VENOUS BLOOD / Unknown Venipuncture / Unknown 11/30/2021 3:26 PM EST 11/30/2021 3:26 PM EST Narrative PREFERRED [employer] [facility] - 11/30/2021 8:04 PM EST Ingestion of kyle doses of biotin (>5 mg/day) taken within 8 hours of drawing blood sample can interfere with this immunoassay test. us Aide Petit MD CHEMISTRY ORDERABLES Final Resu Performing Organization Address [facility] Phone Number [facility] [employer] [address] , [place] [address] * LIPID SCREEN (11/30/2021 3:26 PM EST) Cholesterol 124 <200 mg/dL 11/30/2021 8:04 PM EST [facility] Comment: < 200 Desirable 200 - 239 Borderline High >= 240 High Triglyceride 116 <150 mg/dL 11/30/2021 8:04 PM EST [facility] Comment: < 150 Normal 150 - 199 Borderline High 200 - 499 High >= 500 Very High HDL 40 >=40 mg/dL 11/30/2021 8:04 PM EST PREFERRED [facility] [facility] Comment: > 60 Optimal 40 - 60 Acceptable < 40 Low LDL Calculated 63 <100 mg/dL 11/30/2021 8:[address] [facility] Comment: < 100 Optimal 100 - 129 Near or above optimal 130 - 159 Borderline High 160 - 189 High >= 190 Very High Non-HDL-C Calculated 84 <=129 mg/dL 11/30/2021 8:[address] [facility] Comment: <130 Desirable 130-159 Above Desirable 160-189 Borderline High 190-219 High >= 220 Very High Fasting Specimen? Yes None 022 8:04 PM EST [facility] Blood VENOUS BLOOD / Unknown Venipuncture / Unknown 11/30/2021 3:26 PM EST 11/30/2021 3:26 PM EST Aide Petit MD CHEMISTRY ORDERABLES Final Resu lt PREFERRED [employer] [facility] [address] [facility] , [place] [address] [facility] [address] [place] [address] * (ABNORMAL) TRICHOMONAS VAGINALIS BY TMA (08/24/2021 11:47 AM EST) Trichomonas vaginalis by TMA Detected( A) Not Detected 08/25/2021 2:[address] [facility] Swab ENDOCERVICAL STRUCTURE / Unknown 08/24/2021 11:47 AM EST 08/24/2021 11:47 AM EST Narrative [facility] [employer] [facility] [facility] - 08/25/2021 2:46 PM EST Test methodology is [place] guide mediated amplification (TMA) using the Aptima Trichomonas vaginalis assay from [employer]. A negative result does not completely rule out a Trichomonas vaginalis infection due to potential inhibitors or levels present below the limit of detection of this assay. Results are dependent on proper collection and transport of specimen. This test is indicated for medical purposes only and should not be used for legal or forensic purposes. The assay has been cleared by the FDA to test the following specimens from symptomatic or asymptomatic women: clinician-collected endocervical swabs, clinician-collected vaginal swabs, and specimens collected in PreservCyt solution. Testing on first-catch male and female urine is not FDA-approved by this methodology; performance characteristics of the assay on these sample types were determined by [facility]. Jovany Jj MD MICROBIOLOGY - GENERAL ORDERABL ES Final Result Performing Organization Address [facility]/ZIP Co de Phone Number [facility], [address] , [address] [place] [phone] * (ABNORMAL) GENITAL CULTURE (STAIN INCLUDED) (08/24/2021 11:47 AM EST) Pathologist [facility] Culture Positive Growth(A) 08/27/2021 12:06 PM EST [facility] Culture Abundant growth of Gardnerella vaginalis SUSCEPTIBI LITY RESULT 08/27/2021 12:06 PM EST [facility] Comment:No further workup. Stain Abundant epithelial cells(A) 08/27/2021 12:06 PM EST [facility] Stain Few WBCs(A) 08/27/2021 12:06 PM EST [facility] Stain Mixed morphotypes consistent with transition from normal vaginal microbiota.(A) 08/27/2021 12:06 PM EST [facility] Swab SPECIMEN FROM VAGINA / Unknown 08/24/2021 11:47 AM EST 08/24/2021 11:47 AM EST Narrative [facility] - 08/27/2021 12:06 PM EST No other clinically significant isolates. Jovany Jj MD MICROBIOLOGY - GENERAL ORDERABL ES Final Result Performing Organization Address [facility] Co de Phone Number [facility], [address] , [place] [address] * (ABNORMAL) GLUCOSE METER POC (12/01/2020 9:26 PM EST) Only the most recent of20 resultswithin the time period is included. Glucose Meter POC 135(H) 70 - 100 mg/dL 12/01/2020 9:27 PM EST [facility] Sample Type Capillary 12/01/2020 9:27 PM EST [facility] Patient Status Non-Critical Patient 12/01/2020 9:27 PM EST [facility] Blood BLOOD SPECIMEN / Unknown 12/01/2020 9:26 PM EST 12/01/2020 9:27 PM EST Lacie Wooten DO POINT OF CARE TEST ORDE RABLES Final Result Performing Organization Address [facility] [place] [address] * SPINAL BLOCK (12/01/2020 10:22 AM EST) Narrative [facility] - 12/01/2020 10:22 AM EST Harjinder Macias CRNA 12/01/2020 10:24 AM Spinal Block by Anesthesia Procedure Date/Time: 12/01/2020 10:00 AM Anesthesiologist: Ayah Montaño MD FISH CUTTER: Harjinder Macias CRNA Performed by: WENDY Patient Location: OR Reason for Block: Primary anesthetic Checklist: Patient identified- 2 criteria, Anticoagulant confirmed, Block plan confirmed, Necessary block equipment present, Resuscitaion equipment available, IV access functioning, Supplemental O2 applied, if needed, Allergies confirmed, Surgical procedure consent verified, Block site marked, Drug/solution labeled, BRITTANY recommended monitors applied, Sedation given, if needed and Aseptic technique used Spinal Block Immediate pre anesthetic assessment completed? Yes Patient Position: Sitting Prep: ChloraPrep Monitoring: Continuous pulse ox and BP Approach: Midline Location: L3-4 Injection Technique: Single-shot Needle and Dose Needle Type: Pencan Needle Gauge: 24 G Number of Attempts: 1 Bupivicaine 0.75% with 8% Dextrose 1.4 ml Fentanyl 15 mcg Duramorph 150 mcg Time Dose Given: 10:00 Assessment Neuraxial Block: free flowing CSF and clear CSF Events: no complications noted Ayah Montaño MD ANESTHESIA ORDERABLES Final Resu lt Performing Organization Address [facility] Co de Phone Number [address] [address] * INTRAOP AIRWAY PLACEMENT (12/01/2020 10:20 AM EST) Narrative [facility] - 12/01/2020 10:20 AM EST Harjinder Macias, FISH CUTTER 12/01/2020 10:20 AM Intraop Airway Placement: Airway type: Nasal cannula salter us Ayah Montaño MD CO ANESTHESIA Final Result Performing Organization Address City/[facility]/ZIP Co de Phone Number [facility] [address] [place] [address] * PT / INR (12/01/2020 8:12 AM EST) Only the most recent of5 resultswithin the time period is included. PT 11.2 10.0 - 13.1 second(s) 12/01/2020 8:34 AM EST [facility] INR 1.00 0.89 - 1.17 no units 12/01/2020 8:34 AM EST [facility] Comment: Level of Therapy Indications Target INR Range Standard Dose Treatment and prophylaxis of venous 2.0 - 3.0 thrombosis, pulmonary embolism High Dose High risk patients with mechanical 2.5 - 3.5 heart valves Blood VENOUS BLOOD / Unknown Venipuncture / Unknown 12/01/2020 8:12 AM EST 12/01/2020 8:19 AM EST us Lacie Wooten DO HEMATOLOGY ORDERABLES F inal Result Performing Organization Address [facility]/ZIP Co de Phone Number [facility], [facility] [address] [facility], [place] [address] * DRUGS OF ABUSE, SCREEN ONLY, URINE (12/01/2020 7:27 AM EST) 6 AM (Heroin) Absent Cutoff 10 ng/mL 12/01/2020 8:15 AM EST [facility] Amphetamines Absent Cutoff 500 ng/mL 12/01/2020 8:15 AM EST [facility] Barbiturates Absent Cutoff 200 ng/mL 12/01/2020 8:15 AM EST [facility] Benzodiazepines Absent Cutoff 200 ng/mL 12/01/2020 8:15 AM EST [facility] Buprenorphine Absent Cutoff 5 ng/mL 12/01/2020 8:15 AM EST [facility] Cannabinoid Metabolite Absent Cutoff 50 ng/mL 12/01/2020 8:15 AM EST [facility] Cocaine Metabolite Absent Cutoff 150 ng/mL 12/01/2020 8:15 AM EST [facility], [facility] Fentanyl Absent Cutoff 2 ng/mL 12/01/2020 8:15 AM EST [facility] Methadone and Metabolite Absent Cutoff 300 ng/mL 12/01/2020 8:15 AM EST [facility], [facility] Opiate Absent Cutoff 300 ng/mL 12/01/2020 8:15 AM EST [facility], [facility] Oxycodone Lvl Absent Cutoff 100 ng/mL 12/01/2020 8:15 AM EST [facility], [facility] Creatinine Ur >25.0 mg/dL 12/01/2020 8:15 AM EST [facility] Comment: Greater than 20: Consistent with valid sample Greater than 2 but less than 20: Possible dilution Less than 2: Questionable valid sample Urine STRUCTURE OF URINARY TRACT PROPER / Unknown 12/01/2020 7:27 AM EST 12/01/2020 7:32 AM EST Narrative [facility], [facility] - 12/01/2020 8:15 AM EST These drug classes have been qualitatively screened by immunoassay and are for medical purposes only. Results reported as presumptive positive have not been confirmed. If results don t reflect the clinical picture, the prescribed medication, or the discussion with the patient, confirmation testing is recommended on the ORIGINAL urine. All urine specimens for drug testing are held for 7 days. If confirmation testing is desired, call the Lab JENN[facility]ER. Due to possible factors, such as, dilute/adulterated urine, concentration of drug/metabolite being below the cut-off, or antibody specificity of test reagent, a negative result does not rule out drug use. These results are only valid for urine specimens. Any contamination with vaginal pool/amniotic fluid could cause erroneous results. Lacie Wooten DO URINE ORDERABLES Final Result [facility], [facility] [address] [facility] , [place] [address] * BB HISTORY CHECK (12/01/2020 7:26 AM EST) Only the most recent of6 resultswithin the time period is included. Pathologist [facility] BB HISTORY CHECK (1) Previous History OK 12/01/2020 7:44 AM EST [facility] BLOOD BANK Blood VENOUS BLOOD / Unknown Venipuncture / Unknown 12/01/2020 7:26 AM EST 12/01/2020 7:32 AM EST Lacie Wooten DO BLOOD BANK ORDERABLES F inal Result Performing Organization Address City/[facility]/ZIP Co de Phone Number [facility] [place] [address] * HIGH RISK HCV ANTIBODY REFLEX (12/01/2020 7:26 AM EST) Only the most recent of4 resultswithin the time period is included. [facility] Hep C Ab Non-Reactiv e Non-Reacti ve 12/01/2020 8:48 AM EST [facility] Blood VENOUS BLOOD / Unknown Venipuncture / Unknown 12/01/2020 7:26 AM EST 12/01/2020 7:32 AM EST Lacie Wooten DO IMMUNOLOGY ORDERABLES F inal Result Performing Organization Address [facility] Co de Phone Number [facility] [address] [place] [address], [place] [address] * ABORH (12/01/2020 7:26 AM EST) Only the most recent of6 resultswithin the time period is included. Pathologist [facility] ABORH Int O POS 12/01/2020 8:0 9 AM EST [facility] BLOOD [facility] Blood VENOUS BLOOD / Unknown Venipuncture / Unknown 12/01/2020 7:26 AM EST 12/01/2020 7:32 AM EST Lacie Wooten DO BLOOD BANK ORDERABLES F inal Result Performing Organization Address City/[facility]/ZIP Co de Phone Number [facility] [place] [address] * ANTIBODY SCREEN IGG (12/01/2020 7:26 AM EST) Only the most recent of5 resultswithin the time period is included. [facility] ABSC IgG Int Negative 12/01/2020 8:17 AM EST [facility] BLOOD BANK Blood VENOUS BLOOD / Unknown Venipuncture / Unknown 12/01/2020 7:26 AM EST 12/01/2020 7:32 AM EST us Lacie Wooten DO BLOOD BANK ORDERABLES F inal Result [facility] B[facility] BANK [address] [place] [address] * (ABNORMAL) STREP B DNA (11/26/2020 3:41 PM EST) [facility] Strep B DNA Detected(A ) Not Detected 11/28/2020 10:09 AM EST [facility] Swab 11/26/2020 3:41 PM EST 11/26/2020 3:41 PM EST Narrative [facility] - 11/28/2020 10:09 AM EST TEST INFORMATION: This qualitative assay utilizes molecular amplification to detect a portion of the Streptococcus agalactiae genome and is intended for a screen of antepartum women in 35-37 weeks gestation. A negative result does not rule out the presence the Group B Strep in concentrations below the limit of detection for the assay. Severe penicillin allergic patients should have clindamycin susceptibility testing performed. If this patient has a known penicillin allergy which is not documented in the EPIC chart, please notify Microbiology within one week at . us Ayah Trimble MD MICROBIOLOGY - GENERAL ORDERABL ES Final Result [facility] [address] [facility], [place] [address] * CORONAVIRUS 2019 (11/26/2020 12:47 PM EST) [facility] CORONAVIRUS [id number] Not Detected Not Detected 11/27/2020 12:03 AM EST [facility] Comment:Caution should be ex ercised when interpreting a result of 'Not Detected'. A result of 'Not Detected' does not rule out COVID-19 and cannot be used as sole basis for treatment or patient management decisions. If COVID-19 is still suspected following a 'Not Detected' result, re-testing should be considered. Swab BOTH ANTERIOR NARES / Unknown 11/26/2020 12:47 PM EST 11/26/2020 12:47 PM EST Narrative [facility] - 11/27/2020 12:03 AM EST This test is a nucleic acid amplification test intended for the qualitative detection of nucleic acid from the SARS-CoV-2 in upper respiratory samples collected from individuals suspected of COVID-19. Test is performed on the [employer] platform under the FDA's Emergency Use Authorization (EUA). [employer] Provider Fact Sheet: https://www.fda.gov/media/153766/download [employer] Patient Fact Sheet: https://www.fda.gov/media/598461/download us oJvany Jj MD MICROBIOLOGY - GENERAL ORDERABL ES Final Result [facility] [address] [facility], [place] [address] * PN US > 14 WEEKS AND BPP WITHOUT NST (11/25/2020 11:17 AM EST) Anatomical Region Laterality Modality Pelvis Ultrasound 11/25/2020 10:2 7 AM EST us Jovany Jj MD IMG ORDERABLES Final Result * PN US BIOPHYSICAL PROFILE WITH NST SINGLE OR FIRST GESTATION (11/18/2020 3:41 PM EST) Only the most recent of2 resultswithin the time period is included. Anatomical Region Laterality Modality Pelvis Ultrasound 11/18/2020 2:25 PM EST us Ayah Trimble MD G ORDERABLES Final Result * HEPATITIS C ANTIBODY IGM + IGG (11/01/2020 4:36 PM EST) Only the most recent of3 resultswithin the time period is included. Hep C Ab Non-Reactiv e Non-Reacti ve 11/01/2020 11:28 PM EST [facility] Blood Venipuncture / Unknown 11/01/2020 4:36 PM EST 11/01/2020 4:36 PM EST Shalonda Monterroso CNM IMMUNOLOGY ORDERABLES Final Result Performing Organization Address [facility] Co de Phone Number [facility] [employer] [facility] [address] [facility] , [place] [phone] * HEPATITIS B SURFACE ANTIGEN (11/01/2020 4:36 PM EST) Only the most recent of3 resultswithin the time period is included. Hep Bs Ag Non-Reactiv e Non-Reacti ve 11/01/2020 11:28 PM EST [facility] Blood Venipuncture / Unknown 11/01/2020 4:36 PM EST 11/01/2020 4:36 PM EST Shalonda Monterroso CNM CHEMISTRY ORDERABLES Final R esult Performing Organization Address City/[facility] Co de Phone Number [facility] [employer] [facility] [facility] [address] [facility] , [place] [address] * CHLAMYDIA/GC TMA-REF LAB (11/01/2020 4:35 PM EST) Only the most recent of3 resultswithin the time period is included. [facility] Media Type Unisex Swab 11/04/2020 6:46 AM EST [facility] [employer] Specimen Source Cervical 6:46 AM EST [employer] [employer] C. trachomatis by TMA Negative Negative 11/04/2020 6:46 AM EST [facility] [employer] Comment: INTERPRETIVE INFORMATION: C. trachomatis by TMA This test is intended for medical purposes only and is not valid for the evaluation of suspected sexual abuse or for other forensic purposes. In certain contexts, culture may be required to meet applicable laws and regulations for diagnosis of C. trachomatis and N. gonorrhoeae infections. Per 2014 CDC recommendations, this test does not include confirmation of positive results by an alternative nucleic acid target. N. gonorrhoeae by TMA Negative Negative 11/04/2020 6:46 AM EST [facility] Comment: INTERPRETIVE INFORMATION: N. gonorrhoeae by TMA This test is intended for medical purposes only and is not valid for the evaluation of suspected sexual abuse or for other forensic purposes. In certain contexts, culture may be required to meet applicable laws and regulations for diagnosis of C. trachomatis and N. gonorrhoeae infections. Per 2014 CDC recommendations, this test does not include confirmation of positive results by an alternative nucleic acid target. Performed by [facility], [address] [place] [id number] [email or web address], Belkis England MD, Lab. Director Swab 11/01/2020 4:35 PM EST 11/01/2020 4:35 PM EST us Shalonda Monterroso CNM MICROBIOLOGY - GENERAL ORDER AIDEN Final Result [facility] [address] [place] [address] * PN US OB FOLLOW UP TRANSABDOMINAL APPROACH EACH GESTATION (11/01/2020 8:56 AM EST) Only the most recent of3 resultswithin the time period is included. Anatomical Region Laterality Modality Pelvis Ultrasound 11/01/2020 8:22 AM EST us Lacie Wooten DO IMG ORDERABLE S Final Result * (ABNORMAL) PREG GLUCOSE SCREEN (10/20/2020 2:30 PM EST) Only the most recent of2 resultswithin the time period is included. Preg Screen 234(H) <130 mg/dL 10/20/2020 5:32 PM EST [facility] Blood Venipuncture / Unknown 10/20/2020 2:30 PM EST 10/20/2020 2:30 PM EST Narrative [facility] - 10/20/2020 5:32 PM EST Choice of screening threshold may vary from 130 mg/dL to 140 mg/dL. ACOG recommends 3 Hr diagnostic oral glucose tolerance test following positive screen. us Lacie Wooten DO CHEMISTRY ORDERABLES Fi nal Result Performing Organization Address City/[facility]/ZIP Co de Phone Number [facility] [address] [facility] , [place] [address] * TRICHOMONAS VAGINALIS BY TMA-REF LAB (08/04/2020 1:24 PM EDT) Only the most recent of2 resultswithin the time period is included. [facility] Media Type Urine 020 9:52 AM EDT [facility] [employer] Specimen Source Urine 0 9:52 AM EDT [facility] [employer] Trichomonas vaginalis by TMA Negative Negative 08/07/2020 9:52 AM EDT [facility] [employer] Comment: Test developed and characteristics determined by [facility]. See Compliance Statement B: [email or web address] Interpretive Information: Trichomonas vaginalis by TMA A negative result does not completely rule out infection with T. vaginalis. Results should be interpreted in conjunction with other clinical data. This test has not been validated for use with self-collected vaginal swab specimens from patients. Performance of this test on vaginal swab specimens from women has not been evaluated. This test is intended for medical purposes only and is not valid for the evaluation of suspected sexual abuse or for other forensic purposes. Performed By: [facility] [address] [place] [address] Garage Manager: Belkis England MD Urine 08/04/2020 1:24 PM EDT 08/04/2020 1:24 PM EDT us Ayah Trimble MD MICROBIOLOGY - GENERAL ORDERABL ES Final Result Performing Organization Address [facility]/ZIP Co de Phone Number [facility] [address] [place] [address] * PN US OB DETAIL ANATOMY SINGLE OR FIRST GESTATION (08/04/2020 12:03 PM EDT) Only the most recent of2 resultswithin the time period is included. Anatomical Region Laterality Modality Pelvis Ultrasound 08/04/2020 us Lacie Wooten DO IMG ORDERABLE S Final Result * PN US OB < 14 WEEKS SINGLE OR FIRST GESTATION (06/17/2020 8:12 AM EDT) Anatomical Region Laterality Modality Pelvis Ultrasound 06/17/2020 us Chelo Hendrix APRN IMG ORDERABL ES Final Result * (ABNORMAL) PARTIAL THROMBOPLASTIN TIME (06/14/2020 12:45 PM EDT) Only the most recent of4 resultswithin the time period is included. PTT 25.9(L) 26.0 - 36.4 second(s) 06/14/2020 1:15 PM EDT [facility] Comment: Therapeutic range for unfractionated heparin: 53.0 - 94.4 seconds Therapeutic range for direct thrombin inhibitors: Argatroban is 1.5 to 3 times the aPTT baseline. Lepirudin is 1.5 to 2 times the aPTT baseline. The aPTT should not exceed 100 seconds. The dosage of Argatroban should be decreased in patients with hepatic impairment. The dosage of Lepirudin should be decreased in renal insufficiency. Blood VENOUS BLOOD / Unknown Venipuncture / Unknown 06/14/2020 12:45 PM EDT 06/14/2020 12:45 PM EDT Chelo Hendrix APRN HEMATOLOGY ORDERABLES Final Result [facility] [address] [place] [address] * (ABNORMAL) CREATININE LEVEL 24 HOUR URINE (06/13/2020 12:41 PM EDT) Urine Vol Creat 1,725 mL 06/14/2020 5:33 PM EDT [facility] Ur Crea/24Hr 1.93(H) 0.70 - 1.50 gm/24hr 06/14/2020 5:33 PM EDT [facility] Urine 24 HOUR URINE SPECIMEN / Unknown 06/13/2020 12:41 PM EDT 06/14/2020 12:41 PM EDT Chelo Hendrix LITHOGRAPHIC STRIPPER URINE ORDERABLES Final Result Performing Organization Address [facility] de Phone Number [facility] [employer] [facility] [address] [facility] , [place] [address] [facility] [address] [place] [address] * PROTEIN LEVEL 24 HOUR URINE (06/13/2020 12:41 PM EDT) Urine Vol Protein 1,725 mL 06/14/2020 5:33 PM EDT [facility] Protein, 24 Hour Urine 95 <=150 mg/24hr 06/14/2020 5:[address] [facility] Urine 24 HOUR URINE SPECIMEN / Unknown 06/13/2020 12:41 PM EDT 06/14/2020 12:41 PM EDT Chelo Hendrix APRN URINE ORDERABLES Final Result Performing Organization Address [facility] Phone Number [facility] [employer] [facility] [address] [facility] , [place] [address] [facility] [address] [place] [address] * RUBELLA ANTIBODY IGG (06/09/2020 4:24 PM EDT) Only the most recent of2 resultswithin the time period is included. Rubella IgG 1.160 Index Value 06/10/2020 1:39 AM EDT [facility] Comment: < 0.90 - Negative No significant level of detectable rubella IgG Antibody (Presumed Non-Immune) 0.90 to 0.99 - Equivocal Repeat testing in 10-14 days is recommended > or = 1.00 - Positive Previous exposure or vaccination (Immune) Note: The magnitude of the measured result is not indicative of the amount of antibody present. Blood Venipuncture / Unknown 06/09/2020 4:24 PM EDT 06/09/2020 4:24 PM EDT Chelo Hendrix LITHOGRAPHIC STRIPPER IMMUNOLOGY ORDERABLES Final Result Performing Organization Address [facility]/ZIP Co de Phone Number [facility], [address] , [place] [address] * LACTATE DEHYDROGENASE (06/09/2020 4:24 PM EDT) Pathologist [facility] 138 135 - 214 U/L 06/11/2020 3:11 PM EDT [facility] Blood Venipuncture / Unknown 06/09/2020 4:24 PM EDT 06/09/2020 4:24 PM EDT Chelo Hendrix LITHOGRAPHIC STRIPPER CHEMISTRY ORDERABLES F inal Result Performing Organization Address [facility] Co de Phone Number [facility], [address] , [place] [address] * (ABNORMAL) HEPATIC FUNCTION PANEL (06/09/2020 4:24 PM EDT) Only the most recent of4 resultswithin the time period is included. Total Protein 6.1(L) 6.4 - 8.3 gm/dL 06/11/2020 3:11 PM EDT [facility] Albumin 4.3 3.5 - 5.2 gm/dL 06/11/2020 3:11 PM EDT [facility] Bili Direct <0.2 0.0 - 0.3 mg/dL 06/11/2020 3:11 PM EDT [facility] Bili Total 0.2 0.1 - 1.3 mg/dL 06/11/2020 3:11 PM EDT [facility] AST 11 <=40 U/L 06/11/2020 3:11 PM EDT [facility] ALT 9 <=41 U/L 06/11/2020 3:11 PM EDT [facility] Alk Phos 48 36 - 123 U/L 06/11/2020 3:11 PM EDT [facility] Blood Venipuncture / Unknown 06/09/2020 4:24 PM EDT 06/09/2020 4:24 PM EDT us Chelo Hendrix LITHOGRAPHIC STRIPPER CHEMISTRY ORDERABLES F inal Result [facility] [address] [facility] , [place] [address] * US OB <11 WEEKS FIRST GESTATION AND OB TRANSVAGINAL (05/22/2020 1:28 AM EDT) Anatomical Region Laterality Modality Pelvis Ultrasound 05/22/2020 1:28 AM EDT Impressions 05/22/2020 1:46 AM EDT Live IUP. Small subchorionic hemorrhage present measuring 17 x 14 x 12 mm. - Narrative 05/22/2020 1:46 AM EDT US OB <11 WEEKS FIRST GESTATION AND OB TRANSVAGINAL, 05/22/2020 1:28 AM CLINICAL HISTORY: Vaginal bleeding. Abdominal pain. Multiple miscarriages. COMPARISON: None for this gestation. PROCEDURE COMMENTS: Routine sonographic evaluation of the region of interest with senior sales representative images sent to PACS along with utility hand notes. FINDINGS: Uterus 10.7 x 7.2 x 5.9 cm. Intrauterine gestation present. Sac diameter 41.4 mm. Yolk sac 6 mm. crown-rump length 25.8 mm. cardiac activity 178 bpm. Estimated gestational age 9 weeks 5 days. Small subchorionic hemorrhage along the caudal margin of the gestational sac measures 17 x 14 x 12 mm. LEFT ovary 2.4 x 2.4 x 1.6 cm. RIGHT ovary 3.2 x 2.2 x 2.9 cm. Normal Doppler flow. Procedure Note Michelet Weinberg MD - 05/22/2020 US OB <11 WEEKS FIRST GESTATION AND OB TRANSVAGINAL, 05/22/2020 1:28 AM CLINICAL HISTORY: Vaginal bleeding. Abdominal pain. Multiplemiscarriages. COMPARISON: None for this gestation. PROCEDURE COMMENTS: Routine sonographic evaluation of the region ofinterest with senior sales representative images sent to PACS along with utility hand notes. FINDINGS: Uterus 10.7 x 7.2 x 5.9 cm. Intrauterine gestation present. Sac hgcothnm97.4 mm. Yolk sac 6 mm. crown-rump length 25.8 mm. cardiac [id number] bpm. Estimated gestational age 9 weeks 5 days. Small subchorionic hemorrhage along the caudal margin of the gestationalsac measures 17 x 14 x 12 mm. LEFT ovary 2.4 x 2.4 x 1.6 cm. RIGHT ovary 3.2 x 2.2 x 2.9 cm. NormalDoppler flow. IMPRESSION: Live IUP. Small subchorionic hemorrhage present measuring 17 x 14 x 12 mm. - Jose Miguel Mckoy MD IMG US ORDERABLES Final Result * TSH REFLEX (12/17/2019 3:57 PM EST) TSH Reflex 0.888 0.270 - 4.200 mcIU/mL 12/17/2019 7:24 PM EST [facility] Blood Venipuncture / Unknown 12/17/2019 3:57 PM EST 12/17/2019 3:57 PM EST Narrative [facility] - 12/17/2019 7:24 PM EST Ingestion of kyle doses of biotin (>5 mg/day) taken within 8 hours of drawing blood sample can interfere with this immunoassay test. Tana Sotelo APRN CHEMISTRY ORDERABLES Final Result [facility] [address] [facility] , [place] [address] * ANTINUCLEAR ANTIBODY SCREEN (12/17/2019 3:57 PM EST) JOSH, IgG Negative Negative 12/18/2019 1:06 AM EST [facility] Comment:JOSH samples are scre ened using automated enzyme immunoassay. All samples that screen positive are then tested by the indirect immunofluorescence method. Blood Venipuncture / Unknown 12/17/2019 3:57 PM EST 12/17/2019 3:57 PM EST Tana Amador Deepak LITHOGRAPHIC STRIPPER IMMUNOLOGY ORDERABLES Final Result [facility] [address] [facility] , [place] [address] * US OB TRANSVAGINAL < 11 WEEKS (09/02/2019 1:57 AM EST) Only the most recent of2 resultswithin the time period is included. Anatomical Region Laterality Modality Pelvis Ultrasound 09/02/2019 1:57 AM EST Impressions 09/02/2019 2:07 AM EST No evidence of an intrauterine or ectopic . Narrative 09/02/2019 2:07 AM EST CLINICAL HISTORY: -vaginal bleeding in , history of miscarriages. The beta-hCG level was 281 and the LMP was unknown COMPARISON: None. TECHNIQUE: US OB TRANSVAGINAL < 11 WEEKS on 09/02/2019 1:57 AM. FINDINGS: There was no evidence of an intrauterine or ectopic . The ovaries were normal without torsion. There was trace simple free fluid in the pelvis. Procedure Note Abimael Aragon MD - 09/02/2019 CLINICAL HISTORY: -vaginal bleeding in , history of miscarriages.The beta-hCG level was 281 and the LMP was unknown COMPARISON: None. TECHNIQUE: US OB TRANSVAGINAL < 11 WEEKS on 09/02/2019 1:57 AM. FINDINGS: There was no evidence of an intrauterine or ectopic .The ovaries were normal without torsion. There was trace simple free fluid inthe pelvis. IMPRESSION: No evidence of an intrauterine or ectopic . Merari Bustamante MD [facility] [place] ORDERABLES Final Resu lt * TRICHOMONAS AG (09/02/2019 1:29 AM EST) Trichomonas Ag Not Detected Not Detected 2018 1:49 AM EST [facility] Swab SPECIMEN FROM VAGINA / Unknown 09/02/2019 1:29 AM EST 09/02/2019 1:32 AM EST Merari Bustamante MD MICROBIOLOGY - GENERAL ORDER AIDEN Final Result Performing Organization Address [facility] Co de Phone Number [facility] [employer] [facility] [address] [facility] , [place] [address] * (ABNORMAL) GRAM STAIN (STAIN ONLY) (09/02/2019 1:29 AM EST) Stain Few WBCs(A) 09/02/2019 1:52 AM EST [facility] Stain Mixed morphotypes consistent with bacterial vaginosis.(A) 09/02/2019 1:52 AM EST [facility] Swab SPECIMEN FROM UTERINE CERVIX / Unknown 09/02/2019 1:29 AM EST 09/02/2019 1:32 AM EST Merari Bustamante MD MICROBIOLOGY - GENERAL ORDER AIDEN Final Result Performing Organization Address [facility] de Phone Number [facility] [employer] [facility] [address] [facility] , [place] [address] * EXTRA GOLD SST (08/03/2019 3:57 PM EDT) Blood VENOUS BLOOD / Unknown Venipuncture / Unknown 08/03/2019 3:57 PM EDT 08/03/2019 4:01 PM EDT Grayson Jon MD CHEMISTRY ORDERABLES Final Re sult Performing Organization Address [facility] Co de Phone Number [facility] [address] [place] [address] * EXTRA LIGHT BLUE (08/03/2019 3:57 PM EDT) Blood VENOUS BLOOD / Unknown Venipuncture / Unknown 08/03/2019 3:57 PM EDT 08/03/2019 4:01 PM EDT Grayson Jon MD HEMATOLOGY ORDERABLES Final R esult Performing Organization Address [facility] Co de Phone Number [facility] [address] [place] [address] * (ABNORMAL) POCT URINALYSIS AUTOMATED (07/31/2019 3:15 PM EDT) Color, UA SEP OFFICE Clarity, UA SEP OFFICE Glucose, UA - G/DL% SEP OFFICE Bilirubin, UA - POS/NEG SEP OFFICE Ketones, UA - POS/NEG SEP freight router Grav, UA 1.030 1.001 - 1.035 G/DL SEP OFFICE Blood, UA 3+ POS/NEG SEP OFFICE pH, UA 5.5 5.0 - 8 SEP OFFICE Protein, UA trace POS/NEG SEP OFFICE Urobilinogen, UA - 0.2 - 1.0 MG/DL SEP OFFICE Leukocytes, UA - POS/NEG SEP OFFICE Nitrite, UA - POS/NEG SEP OFFICE Appear BF Cloudy SEP OFFICE Lot Number [id number] SEP OFFICE Expiration Date SEP OFFICE SeriAl # SEP OFFICE Urine 07/31/2019 3:15 PM EDT Tana Sotelo LITHOGRAPHIC STRIPPER POINT OF CARE TEST ORDERABL ES Final Result SEP OFFICE * XR THORACIC SPINE AP LATERAL AND SWIMMERS (05/24/2019 4:27 PM EDT) Anatomical Region Laterality Modality T-spine Radiographic Maria Luz ging 05/24/2019 4:27 PM EDT Impressions 05/24/2019 5:21 PM EDT No acute bony abnormality of the thoracic spine. - Narrative 05/24/2019 5:21 PM EDT XR THORACIC SPINE AP LATERAL AND SWIMMERS, 05/24/2019 4:27 PM CLINICAL HISTORY: -WORK-RELATED INJURY -BACK PAIN COMPARISON: None. PROCEDURE COMMENTS: Frontal and lateral imaging of the thoracic spine. Swimmer's view included for the cervicothoracic junction. FINDINGS: No acute fracture or malalignment. Paravertebral stripes and pedicles are preserved. Vertebral body height and intervertebral disc spaces relatively well maintained. Procedure Note Dorian Bah MD - 05/24/2019 XR THORACIC SPINE AP LATERAL AND SWIMMERS, 05/24/2019 4:27 PM CLINICAL HISTORY: -WORK-RELATED INJURY -BACK PAIN COMPARISON: None. PROCEDURE COMMENTS: Frontal and lateral imaging of the thoracic spine.Swimmer's view included for the cervicothoracic junction. FINDINGS: No acute fracture or malalignment. Paravertebral stripes and pediclesare preserved. Vertebral body height and intervertebral disc spaces relatively wellmaintained. IMPRESSION: No acute bony abnormality of the thoracic spine. - us Harjinder Gonsales MD IMG DIAGNOSTIC IMAGING ORDERAB LES Final Result * POCT URINE (10/28/2018 2:09 PM EST) Preg Test, Ur neg POS/NEG SEP OFFICE Lot Number [id number] SEP OFFICE Expiration Date ,020 SEP OFFICE SeriAl # na SEP OFFICE Control Line Yes YES/NO SEP OFFICE Urine 10/28/2018 2:09 PM EST us Antionette Singh DO POINT OF CARE TEST ORDERABLES Final Result SEP OFFICE * (ABNORMAL) PROTEIN/CREATININE RATIO URINE (10/17/2018 9:48 PM EST) Only the most recent of2 resultswithin the time period is included. Urine Protein 8.6 mg/dL 10/17/2018 10:29 PM EST [facility] Urine Creatinine 44.1 mg/dL 10/17/2018 10:29 PM EST [facility] Ur Protein/Creat 0.20(H) <=0.14 mg/mg 10/17/2018 10:29 PM EST [facility] Urine STRUCTURE OF URINARY TRACT PROPER / Unknown 10/17/2018 9:48 PM EST 10/17/2018 9:56 PM EST us Ana Granda MD URINE ORDERABLES Final Re sult [facility] [address] [place] [address] , [place] [address] * SPINAL BLOCK (10/14/2018 11:08 AM EST) Narrative [facility] - 10/14/2018 11:08 AM EST Nataliia Abad CRNA 10/14/2018 11:10 AM Spinal Block by Anesthesia Procedure Date/Time: 10/14/2018 10:29 AM Anesthesiologist: BERNARD DE LA GARZA FISH CUTTER: NATALIIA ABAD Performed by: WENDY Patient Location: OB Reason for Block: Primary anesthetic Checklist: Patient identified- 2 criteria, Anticoagulant confirmed, Block plan confirmed, Necessary block equipment present, Resuscitaion equipment available, IV access functioning, Supplemental O2 applied, if needed, Allergies confirmed, Surgical procedure consent verified, Block site marked, Drug/solution labeled, BRITTANY recommended monitors applied, Sedation given, if needed and Aseptic technique used Spinal Block Immediate pre anesthetic assessment completed? Yes Patient Position: Sitting Prep: ChloraPrep Monitoring: BP, HR and O2 Saturation Approach: Midline Location: L3-4 Injection Technique: Single-shot Needle and Dose Needle Type: Pencan Needle Gauge: 24 G Number of Attempts: 1 Bupivicaine 0.75% with 8% Dextrose 1.4 ml Fentanyl 15 mcg Duramorph 200 mcg Time Dose Given: 10:29 Assessment Neuraxial Block: clear CSF Right sensory level:T4-T5 Left sensory level: T4-T5 Events: no complications noted Comments: Easy placement. Positive CSF, positive swirl, negative heme. Procedure Note Nataliia Abad CRNA - 10/14/2018 11:08 AM EST Spinal Block by Anesthesia Procedure Date/Time: 10/14/2018 10:29 AM Anesthesiologist: BERNARD DE LA GARZA FISH CUTTER: NATALIIA ABAD Performed by: WENDY Patient Location: OB Reason for Block: Primary anesthetic Checklist: Patient identified- 2 criteria, Anticoagulant confirmed, Blockplan confirmed, Necessary block equipment present, Resuscitaion equipmentavailable, IV access functioning, Supplemental O2 applied, if needed,Allergies confirmed, Surgical procedure consent verified, Block sitemarked, Drug/solution labeled, BRITTANY recommended monitors applied, Sedationgiven, if needed and Aseptic technique used Spinal Block Immediate pre anesthetic assessment completed? Yes Patient Position: Sitting Prep: ChloraPrep Monitoring: BP, HR and O2 Saturation Approach: Midline Location: L3-4 Injection Technique: Single-shot Needle and Dose Needle Type: Pencan Needle Gauge: 24 G Number of Attempts: 1 Bupivicaine 0.75% with 8% Dextrose 1.4 ml Fentanyl 15 mcg Duramorph 200 mcg Time Dose Given: 10:29 Assessment Neuraxial Block: clear CSF Right sensory level:T4-T5 Left sensory level: T4-T5 Events: no complications noted Comments: Easy placement. Positive CSF, positive swirl, negative heme. us Bernard De La Garza MD ANESTHESIA ORDERABLES Fin al Result Performing Organization Address [facility]/ZIP Co de Phone Number [facility] [address] [place] [address] * (ABNORMAL) CORD BLOOD GAS ARTERIAL (10/14/2018 11:00 AM EST) pH Cord Art 7.094(L) 7.200 - 7.350 pH 10/14/2018 11:19 AM EST [facility] pCO2 Cord Art 60(H) 31 - 57 mmHg 10/14/2018 11:19 AM EST [facility] pO2 Cord Art <42 15 - 42 mmHg 10/14/2018 11:19 AM EST [facility] HCO3 Cord Art 18(L) 19 - 27 mmol/L 10/14/2018 11:19 AM EST [facility] Blood ARTERIAL BLOOD / Unknown Venipuncture / Unknown 10/14/2018 11:00 AM EST 10/14/2018 11:06 AM EST us Jovany Jj MD CHEMISTRY ORDERABLES Final Resu lt Performing Organization Address [facility]/ZIP Co de Phone Number [facility] [address] [facility], [place] [address] * (ABNORMAL) CORD BLOOD GAS VENOUS (10/14/2018 11:00 AM EST) ph Cord-Aman 7.126(L) 7.250 - 7.350 pH 10/14/2018 11:17 AM EST [facility] pCO2 Cord Aman 54 mmHg 10/14/2018 11:17 AM EST [facility] pO2 Cord Aman <42 15 - 42 mmHg 10/14/2018 11:17 AM EST [facility] HCO3 Cord Aman 17.1 mmol/L 10/14/2018 11:17 AM EST [facility] Blood VENOUS BLOOD / Unknown Venipuncture / Unknown 10/14/2018 11:00 AM EST 10/14/2018 11:06 AM EST us Jovany Jj MD CHEMISTRY ORDERABLES Final Resu lt Performing Organization Address City/[facility]/ZIP Co de Phone Number [facility] [address] [facility] , [place] [address] * INTRAOP AIRWAY PLACEMENT (10/14/2018 10:43 AM EST) Narrative [facility] - 10/14/2018 10:43 AM EST Junie Nataliia M, FISH CUTTER 10/14/2018 11:08 AM Intraop Airway Placement: Airway type: Nasal cannula salter Procedure Note Nataliia Abad, FISH CUTTER - 10/14/2018 10:43 AM EST Intraop Airway Placement: Airway type: Nasal cannula salter us Bernard De La Garza MD CO ANESTHESIA Edited Performing Organization Address [facility] Co de Phone Number [facility] [address] [place] [address] *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 symptoms 02/10/2023 Urinary tract infection without hematuria, site unspecified 02/10/2023 Positive urine test 02/13/2023 Bad headache Headache 06/03/2023 Exposure to confirmed case of COVID-19 06/03/2023 Chronic midline low back pain without sciatica 06/25/2023 DDD (degenerative disc disease), lumbar Degeneration of lumbar or lumbosacral intervertebral disc 06/25/2023 Generalized anxiety disorder 06/25/2023 Moderate episode of recurrent major depressive disorder (HCC) 06/25/2023 Chronic midline low back pain without sciatica 06/25/2023 DDD (degenerative disc disease), lumbar Degeneration of lumbar or lumbosacral intervertebral disc 06/25/2023 Gastroesophageal reflux disease without esophagitis Esophageal reflux 06/25/2023 DDD (degenerative disc disease), lumbar Degeneration of lumbar or lumbosacral intervertebral disc 06/29/2023 Breast abscess Inflammatory disease of breast 08/02/2023 Migraine without status migrainosus, not intractable, unspecified migraine type 09/08/2023 Post concussive syndrome Postconcussion syndrome 09/08/2023 Abdominal pain, RUQ (right upper quadrant) Abdominal pain, right upper quadrant 09/21/2023 Nausea, vomiting and diarrhea Nausea with vomiting 09/21/2023 Abdominal pain, RUQ (right upper quadrant) Abdominal pain, right upper quadrant 09/21/2023 Urinary frequency 09/21/2023 Abdominal pain, RUQ (right upper quadrant) Abdominal pain, right upper quadrant 09/21/2023 Nausea, vomiting and diarrhea Nausea with vomiting 09/21/2023 Urinary frequency 09/21/2023 Screening for STDs (sexually transmitted diseases) Screening examination for venereal disease 11/12/2023 Screening for cervical cancer Screening for malignant neoplasm of the cervix 11/12/2023 Screening for STDs (sexually transmitted diseases) Screening examination for venereal disease 11/12/2023 Annual physical exam Routine general medical examination at a health care facility 11/12/2023 Genital warts Condyloma acuminatum 11/12/2023 BV (bacterial vaginosis) Vaginitis and vulvovaginitis, unspecified 11/13/2023 Low grade squamous intraepithelial lesion on cytologic smear of cervix (LGSIL) Papanicolaou smear of cervix with low grade squamous intraepithelial lesion (LGSIL) 11/21/2023 Moderate episode of recurrent major depressive disorder (HCC) 11/29/2023 Generalized anxiety disorder 11/29/2023 Chest pain at rest Chest pain, unspecified 01/08/2024 Acute gastritis without hemorrhage, unspecified gastritis type 01/08/2024 Generalized anxiety disorder 01/08/2024 Chest wall pain Painful respiration 01/08/2024 Moderate episode of recurrent major depressive disorder (HCC) 01/08/2024 Pain in both lower extremities 04/23/2024 Spider vein, symptomatic Nevus, non-neoplastic 04/23/2024 Hyperglycemia Other abnormal glucose 06/02/2024 Hyperglycemia Other abnormal glucose 06/07/2024 Sore throat Acute pharyngitis 09/06/2024 Viral pharyngitis Acute pharyngitis 09/06/2024 Encounter for supervision of normal first Supervision of normal first 10/10/2018 Gestational diabetes mellitus (GDM) in third trimester controlled on oral hypoglycemic drug 10/10/2018 Non-reactive NST (non-stress test) Abnormal findings on screening 10/10/2018 labor in third trimester 10/13/2018 Pre-eclampsia, severe, with delivery Severe pre-eclampsia, with delivery 10/13/2018 Gestational diabetes mellitus (GDM) in third trimester controlled on oral hypoglycemic drug 10/13/2018 delivery delivered delivery, without mention of indication, delivered, with or without mention of antepartum condition 10/13/2018 History of Other postprocedural status 11/24/2020 labor in third trimester without delivery 11/24/2020 White classification A2 gestational diabetes mellitus 11/24/2020 Anxiety and depression Dysthymic disorder 11/24/2020 History of Other postprocedural status 12/01/2020 History of severe pre-eclampsia 12/01/2020 Acute appendicitis with localized peritonitis, without perforation, abscess, or gangrene 01/01/2022 Other headache syndrome 01/01/2022 Goals Goal Patient Goal Type Associated Problems Recent Progress Patient-Stated? Author Blood Pressure < 140/90 Blood Pressure 120/70(2023 4:49 PM EST) No Justin Crooks, DO Maintain a healthy diet, exercise regularly and maintain an ideal body weight General No Justin Crooks, DO Stay Tobacco Free Lifestyle No Anyi Choudhury LPN Care Teams Instruction Librarian Relationship Specialty Start Date End Date Ayah Springer APRN [address] [place] [id number] PCP - General Nurse Practitioner 06/09/20
== END 2025-06-26 22:08 | disposition left against medical advice (07) ==
LOC: ER 22:02
PROVIDERS: Emergency Provider Student in an Organized Health Care Education/Training Program; PCP Nurse Practitioner Family
DX: R10.9 Unspecified abdominal pain (principal); Z53.29 Procedure and treatment not carried out because of patient's decision for other reasons
CPT/HCPCS: 99211